=== PATIENT | male | born 1950 | race Caucasian/White ===

== ENCOUNTER 2019-05-22 22:18 | Emergency (ER) | payer MEDICAID, SELFPAY ==
[2019-05-22 22:23] VITALS: BP 167/95; PULSE 59; RESP 18; TEMP 36.5; O2SAT 98; BMI 25.7
--- NOTE | 2019-05-22 22:36 | ED_ITS ---
Entered by Nidhi Sanchez, acting as scribe for Alana Chavira May 22, 2019 22:18 HPI - Nausea/Vomiting/Diarrhea General: Chief complaint: Nausea/Vomiting/Diarrhea Stated complaint: not feeling well Time Seen by Provider: 05/22/19 22:33 Source: patient Mode of arrival: ambulatory Limitations: no limitations History of Present Illness: HPI Narrative: 68 yo m came to the er for nausea,vomiting,fever,chills and body aches. Onset was today. Pt states that he has body aches and has thrown up 3 times since noon this morning. Pt states that he had a heart attack 3 months ago along with seizures. [facility] vein is where he had a stent put in. MD elicited complaint: nausea, vomiting, abdominal pain and other (body aches) Onset (ago): day(s) (today) Associated nausea: Yes Location of pain: Other (all over) Pain consistency: intermittent Severity: mild Quality: aching Exacerbating factors: none Relieving factors: none Associated symtoms: Reports fevers/chills, nausea and other (vomiting); Denies altered mental status, change in vision, chest pain, dizziness, dysuria, headache(s), palpitations or syncope Treatment prior to arrival: none Review of Systems General: Reports: other (negative unless marked) Const: Reports: fever, chills and body aches Eyes: Denies: change in vision or blurry vision ENMT: Denies: throat pain, painful swallowing, hoarseness, ear pain, ear discharge, Change in hearing or nasal discharge Card: Denies: chest pain, palpitations, irregular heart rhythm, syncope, pre- syncope, shortness of breath on exertion or shortness of breath when lying down Resp: Denies: shortness of breath, productive cough, non-productive cough, wheezing, coughing up blood or chest congestion GI: Reports: nausea and vomiting : Denies: flank pain, difficulty urinating, painful urination, urinary frequency, urinary urgency, decreased urine ouput, urinary incontinence or blood in urine Musc: Denies: neck pain, back pain, extremity pain, extremity swelling, joint pain, joint swelling, joint warmth or joint stiffness Skin/Breast: Denies: rash, skin tenderness or yellow skin Neuro: Denies: headache, numbness in extremities, weakness in extremities, changes in sensation, lack of coordination, difficulty walking, dizziness, vertigo or confusion Endo: Denies: excessive thirst, tired all the time, cold intolerance, excessive sweating, flushing or hot flashes Branden/Lymph: Denies: easy bruising, easy bleeding, petechiae or enlarged lymph nodes All/Imm: Denies: hives, throat swelling, tongue swelling, facial swelling or acute wheezing PFSH ED PFSH: Family History Other Cancer Social History Smoking and tobacco status: never smoked Physical Exam Const: COMMON NORMALS: no apparent distress, oriented x3, no limitations, healthy appearing and well nourished EXAM LIMITATIONS: no altered mental status GENERAL APPEARANCE: cooperative, well kempt and well developed ORIENTATION/CONSCIOUSNESS: Yes awake HENMT: COMMON NORMALS: normocephalic, head/scalp atraumatic, hearing grossly n ormal bilaterally, external ears normal, EAC's normal, external nose normal and moist oral mucous membranes HEAD & SCALP: normal to inspection, normocephalic and atraumatic FACE & SINUS: normal facial exam and face symmetric NOSE: external nose normal and nares normal EXTERNAL EAR: Yes external ears normal EXTERNAL AUDITORY CANAL: EAC's normal MOUTH: oral and palatal mucosa normal and tongue normal Eye: COMMON NORMALS: PERRL, EOMs intact bilaterally, conjunctivae normal and no scleral icterus GENERAL EYE: normal appearance of both eyes and normal light reflex CONJUNCTIVA: Yes conjunctivae normal SCLERA: sclerae normal CORNEA: Yes corneas normal PUPIL: Yes PERRL DIRECT OPHTHALMOSCOPY: Yes normal light reflex Neck/C-Spine: COMMON NORMALS: full ROM, no lymphadenopathy, supple, no meningeal signs and no JVD GENERAL: Yes normal visual inspection and Yes trachea midline CERVICAL SPINE: Yes cervical ROM normal Chest: COMMONS NORMALS: inspection of chest normal and palpation of chest normal Resp: COMMON NORMALS: normal respiratory effort, no retractions, no use of accessory muscles and clear to auscultation bilaterally EFFORT & INSPECTION: Yes able to speak in complete sentences AUSCULTATION: clear to auscultation bilaterally Cardio: COMMON NORMALS: no JVD, regular rate, regular rhythm, S1 normal heart sound, S2 normal heart sound, no gallops, no clicks, no murmurs and no rub JUGULAR VENOUS DISTENTION: no JVD RATE: regular rate RHYTHM: regular rhythm HEART SOUNDS: S1 normal and S2 normal GI: COMMON NORMALS: soft to palpation, non-tender, no hepatosplenomegaly and no masses INSPECTION: Yes normal to inspection PALPATION: Yes soft and Yes no hepatosplenomegaly : COMMON NORMALS: Yes no CVA tenderness BLADDER/KIDNEY EXAM: Yes no CVA tenderness Back/Pelvis: COMMON NORMALS: no CVA tenderness, thoracic and lumbar spine normal to inspection, no thoracic nor lumbar tenderness and thoraco-lumbar ROM normal Extremity: COMMON NORMALS: normal to inspection, full ROM, normal capillary refill, no joint enlargement, no clubbing, cyanosis or edema and no calf tenderness Neuro: COMMON NORMALS: oriented x3, CN's II-XII intact bilaterally, moves all extremities, no focal motor deficits and no sensory deficits noted MENINGEAL SIGNS: Yes no meningeal signs Psych: COMMON NORMALS: mental status grossly normal, thought process normal, cooperative, affect normal, speech normal and activity/motor behavior normal APPEARANCE: Yes well kempt SPEECH: Yes normal speech THOUGHT PROCESS: normal thought process Skin: COMMON NORMALS: no rashes or lesions noted, skin turgor normal, no jaundice, no petechiae and no mottling GENERAL SKIN EXAM: no rashes or lesions noted and turgor normal Course Vital Signs: Vital signs: Vital Signs Temperature 97.7 F 05/22/19 22:23 Pulse Rate 66 05/23/19 00:43 Respiratory Rate 16 05/23/19 00:43 Blood Pressure 143/75 05/23/19 00:43 Pulse Oximetry 94 05/23/19 00:43 MDM - Nausea/Vomiting/Diarrhea MDM Narrative: Medical decision making narrative: Mr. Morales is a very nice 68-year-old male who comes in complaining of feeling achy and tired and fatigued all over. He is vomited 3 times today but denies any abdominal pain. He denies any headache, neck pain or stiffness, chest pain or shortness of breath, back pain, extremity pain only the diffuse myalgias that he has described before. Patient's believes he has been around people with similar symptoms. He is flu negative here. All of his labs are unremarkable. He does not want to stay for any further care but wants to go home. I have agreed to give him Anitafran for discharge and he will follow-up with his regular doctor. I see no light that of acute coronary syndrome, meningitis, pneumonia or other life threats as this differential is long. The patient does though agree to return should his symptoms change or worsen. Lab Data: Attestation: I reviewed the patient's lab results. Labs: Lab Results 05/22/19 05/22/19 05/22/19 Range/Units 22:55 22:55 22:55 WBC 11.9 H (4.0-10.0) 10^3/ uL RBC 5.04 (4.1-5.3) 10^6/u L Hgb 15.0 (11.7-16.6) g/dL Hct 44.8 (42.0-52.0) % MCV 88.9 (80-94) fL MCH 29.8 (28.0-34.0) pg MCHC 33.5 (30.0-36.0) g/dL RDW 12.8 (12.1-15.1) % Plt Count 234 (130-400) 10^3/c mm MPV 9.4 (7.4-10.4) fL Neut % (Auto) 85.9 % Lymph % (Auto) 7.5 % Irwin % (Auto) 4.4 % Eos % (Auto) 1.6 % Baso % (Auto) 0.3 % Neut # (Auto) 10.2 H (1.8-7.7) 10^3/u L Lymph # (Auto) 0.9 (0.8-4.8) 10^3/u L Irwin # (Auto) 0.5 (0.2-0.9) 10^3/u L Eos # (Auto) 0.2 (0.0-0.8) 10^3/u L Baso # (Auto) 0.0 (0.0-0.1) 10^3/u L Nucleated RBC % (a uto) 0 % Nucleated RBCs # 0.0 /100WBC Sodium 130 L (136-145) mmol/L Potassium 4.0 (3.5-5.1) mmol/L Chloride 90 L (98-107) mmol/L Carbon Dioxide 27 (22-29) mmol/L Anion Gap 17.0 (5-19) BUN 16 (8-23) mg/dL Creatinine 1.0 (0.7-1.2) mg/dL GFR Calculation 74.1 L (90-130) mL/min Glucose 104 (65-115) mg/dL Calcium 9.8 (8.5-10.5) mg/dL Total Bilirubin 0.9 (0.15-1.2) mg/dL AST 27 (0-40) U/L ALT 27 (0-41) U/L Alkaline Phosphata se 33 L (40-130) IU/L Troponin T Baselin e 13 (0-15) ng/mL Total Protein 8.0 (6.6-8.7) g/dL Albumin 4.1 (3.5-5.2) g/dL Globulin 3.9 (1.3-4.6) g/dL Lipase 28 (13-60) U/L Urine Color (Yellow) Urine Appearance (CLEAR) Urine pH (5-7) Ur Specific Gravit y (1.005-1.030) Urine Protein (Negative) Urine Glucose (UA) (Normal) Urine Ketones (Negative) Urine Blood (Negative) Urine Nitrate (Negative) Urine Bilirubin (NEGATIVE) Urine Urobilinogen (Negative) mg/dL Ur Leukocyte Evelyn ase (Negative) Influenza Type A A g (Negative) POC Influenza B Ag (Negative) 05/22/19 05/23/19 Range/Units 23:15 00:10 WBC (4.0-10.0) 10^3/ uL RBC (4.1-5.3) 10^6/u L Hgb (11.7-16.6) g/dL Hct (42.0-52.0) % MCV (80-94) fL MCH (28.0-34.0) pg MCHC (30.0-36.0) g/dL RDW (12.1-15.1) % Plt Count (130-400) 10^3/c mm MPV (7.4-10.4) fL Neut % (Auto) % Lymph % (Auto) % Irwin % (Auto) % Eos % (Auto) % Baso % (Auto) % Neut # (Auto) (1.8-7.7) 10^3/u L Lymph # (Auto) (0.8-4.8) 10^3/u L Irwin # (Auto) (0.2-0.9) 10^3/u L Eos # (Auto) (0.0-0.8) 10^3/u L Baso # (Auto) (0.0-0.1) 10^3/u L Nucleated RBC % (a uto) % Nucleated RBCs # /100WBC Sodium (136-145) mmol/L Potassium (3.5-5.1) mmol/L Chloride (98-107) mmol/L Carbon Dioxide (22-29) mmol/L Anion Gap (5-19) BUN (8-23) mg/dL Creatinine (0.7-1.2) mg/dL GFR Calculation (90-130) mL/min Glucose (65-115) mg/dL Calcium (8.5-10.5) mg/dL Total Bilirubin (0.15-1.2) mg/dL AST (0-40) U/L ALT (0-41) U/L Alkaline Phosphata se (40-130) IU/L Troponin T Baselin e (0-15) ng/mL Total Protein (6.6-8.7) g/dL Albumin (3.5-5.2) g/dL Globulin (1.3-4.6) g/dL Lipase (13-60) U/L Urine Color Yellow (Yellow) Urine Appearance Clear (CLEAR) Urine pH 5 (5-7) Ur Specific Gravit y 1.020 (1.005-1.030) Urine Protein Neg (Negative) Urine Glucose (UA) Norm (Normal) Urine Ketones 1+ H (Negative) Urine Blood Neg (Negative) Urine Nitrate Negative (Negative) Urine Bilirubin Neg (NEGATIVE) Urine Urobilinogen Norm (Negative) mg/dL Ur Leukocyte Evelyn ase Negative (Negative) Influenza Type A A g Negative (Negative) POC Influenza B Ag Negative (Negative) EKG Data^: EKG 1: Attestation: I personally reviewed and interpreted this EKG as follows: EKG interpretation date: 05/23/19 EKG interpretation time: 22:56 Interpretation: Normal sinus rhythm at 61 beats a minute, incomplete right bundle branch block, nonspecific ST and T wave changes, otherwise unremarkable. Discharge Plan Discharge Patient Disposition: Home, Self-Care Clinical Impression: Vomiting Qualifiers: Vomiting type: unspecified Vomiting Intractability: non-intractable Nausea presence: with nausea Qualified Code(s): R11.2 - Nausea with vomiting, unspecified Condition: Stable Prescriptions: New Zofran 4 mg tablet 4 mg PO Q6H PRN (Reason: nausea and vomiting) Qty: 20 RF: 0 No Action levetiracetam 750 mg tablet 750 mg PO BID RF: 0 metoprolol tartrate 25 mg tablet 25 mg PO BID RF: 0 clopidogrel 75 mg tablet 75 mg PO DAILY RF: 0 aspirin [Adult Low Dose Aspirin] 81 mg tablet,delayed release (DR/EC) 81 mg PO DAILY RF: 0 atorvastatin 40 mg tablet 40 mg PO DAILY RF: 0 Discharge Orders: Discharge Order (Routine); Ordered 05/23/19 Ordered By: Alana Chavira Referrals: Matias Echevarria MD [Primary Care Provider] - 1-3 days Discharge Diet: Usual diet Discharge Activity: Increase activity as tolerated Patient Instructions: Acute Nausea and Vomiting (ED), Abdominal Pain (ED) Activity Restrictions/Additional Instructions: Please return to the ER immediately for any of the signs or symptoms listed on your discharge instruction sheets, worsening/changing of your symptoms, you are not getting better as quickly as expected, or for ANY other cause or concerns. 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
--- NOTE | 2019-05-22 22:42 | ECG_ITS ---
Measurements Intervals [place] Rate: 61 P: 54 TX: 170 QRS: 58 QRSD: 114 T: 33 QT: 400 QTc: 403 SINUS RHYTHM INCOMPLETE RIGHT BUNDLE BRANCH BLOCK [90+ ms QRS DURATION, TERMINAL R IN V1/V2, 40+ ms S IN I/aVL/V4/V5/V6] Compared to ECG 02/17/2019 06:30:00 Sinus bradycardia no longer present ST (T wave) deviation no longer present Electronically Signed On 05-23-2019 19:35:45 HEALTH POLICY ANALYST by Calin Morgan M.D. [email or web address]
[2019-05-22 23:01] LABS: Basophils % 0.3 %; Eosinophils # 0.2 10^3/uL (0.0-0.8); Eosinophils % 1.6 %; Hematocrit 44.8 % (42.0-52.0); Lymphocytes # 0.9 10^3/uL (0.8-4.8); Lymphocytes % 7.5 %; Mean Corpuscular HGB Conc 33.5 g/dL (30.0-36.0); Mean Corpuscular Hemoglobin 29.8 pg (28.0-34.0); Mean Corpuscular Volume 88.9 fL (80-94); Mean Platelet Volume 9.4 fL (7.4-10.4); Monocytes # 0.5 10^3/uL (0.2-0.9); Monocytes % 4.4 %; Neutrophils # 10.2 10^3/uL (1.8-7.7); Neutrophils % 85.9 %; Nucleated Red Blood Cells % 0 %; Platelet Count 234 10^3/cmm (130-400); Red Blood Count 5.04 10^6/uL (4.1-5.3); Red Cell Distribution Width 12.8 % (12.1-15.1); White Blood Count 11.9 10^3/uL (4.0-10.0)
[2019-05-22] MEDS: ondansetron 2 mg/ML SDV 2 mL 4 MG IVP (23:09)
[2019-05-22] MEDS: sodium chloride 0.9% 1,000 ML 100 ML IV (23:09)
[2019-05-22 23:15] LABS: Alanine Aminotransferase 27 U/L (0-41); Albumin Level 4.1 g/dL (3.5-5.2); Alkaline Phosphatase 33 IU/L (40-130); Aspartate Amino Transferase 27 U/L (0-40); Blood Urea Nitrogen 16 mg/dL (8-23); Calcium 9.8 mg/dL (8.5-10.5); Carbon Dioxide 27 mmol/L (22-29); Chloride 90 mmol/L (98-107); Globulin 3.9 g/dL (1.3-4.6); Glomerular Filtration Rate 74.1 mL/min (90-130); Glucose 104 mg/dL (65-115); Lipase 28 U/L (13-60); Sodium 130 mmol/L (136-145); Total Bilirubin 0.9 mg/dL (0.15-1.2)
[2019-05-22 23:19] LABS: Troponin(5th) Baseline 13 ng/mL (0-15)
[2019-05-22 23:56] LABS: Influenza A by IFA Negative (Negative); Influenza B by IFA Negative (Negative)
[2019-05-23 00:19] LABS: Bilirubin Urine Neg (NEGATIVE); Blood Urine Neg (Negative); Glucose Urine UA Norm (Normal); Ketones Urine 1+ (Negative); Leukocyte Esterase Urine Negative (Negative); Nitrate Urine Negative (Negative); Protein Urine Neg (Negative); Urine Appearance Clear (CLEAR); Urine Color Yellow (Yellow); Urobilinogen Urine Norm (Negative); pH Urine 5 (5-7)
[2019-05-23 00:20] LABS: Add Urine Culture? No
[2019-05-23 00:43] VITALS: BP 143/75; PULSE 66; RESP 16; O2SAT 94
== END 2019-05-23 00:44 | disposition home or self-care (01) ==
PROVIDERS: Emergency Provider Emergency Medicine; Family Provider Family Medicine; PCP Family Medicine
DX: R11.2 Nausea with vomiting, unspecified (principal); R19.7 Diarrhea, unspecified; R50.9 Fever, unspecified; I25.2 Old myocardial infarction; I45.10 Unspecified right bundle-branch block
CPT/HCPCS: 36415; 80053; 81001; 83690; 84484; 85025; 87804; 93005; 96360; 96361; 96374; 96375; 99283; 99284; J2405; J7030

== ENCOUNTER 2019-07-20 22:13 | Observation (INO) | payer MEDICAID, SELFPAY ==
[2019-07-20 22:14] VITALS: BP 150/73; PULSE 113; RESP 18; TEMP 36.3; O2SAT 98; BMI 27.3
--- NOTE | 2019-07-20 22:19 | XR_ITS ---
WS: [id number] CHEST XRAY TECHNIQUE: Portable chest. CLINICAL INFORMATION: cough COMPARISON: February 13, 2019 FINDINGS: Heart: Normal cardiac silhouette. Lungs: Moderate chronic emphysematous changes. No acute pulmonary infiltrates. No focal pneumonia. Bones: Mild thoracic curve convex left. XR/XR chest 1V portable [id number] IMPRESSION: No acute chest findings
--- NOTE | 2019-07-20 22:20 | CTR_ITS ---
PROCEDURE INFORMATION: Exam: CT Head Without Contrast Exam date and time: 07/20/2019 10:34 PM Age: 68 years old Clinical indication: Pain; Altered mental status/memory loss; Headache; Patient HX: Seizure; Additional info: Wu/ams TECHNIQUE: Imaging protocol: Computed tomography of the head without contrast. Total DLP: 861.41 mGy-cm Radiation optimization: All CT scans at this facility use at least one of these dose optimization techniques: automated exposure control; mA and/or kV adjustment per patient size (includes targeted exams where dose is matched to clinical indication); or iterative reconstruction. COMPARISON: CT head wo con* [id number] 10/12/2017 1:52 PM FINDINGS: Brain: Normal. No hemorrhage. Unremarkable white matter. No mass effect. Ventricles: Normal. No ventriculomegaly. Bones/joints: Unremarkable. No acute fracture. Sinuses: There is mild mucosal thickening in the sinuses. There is a small fluid level in the left maxillary sinus. Mastoid air cells: Visualized mastoid air cells are well aerated. Soft tissues: Unremarkable. CT/CT head wo con* [id number] IMPRESSION: 1. No acute intracranial abnormality. 2. Mild sinus opacities are noted as above. Radiation Dose CTDIVOL = (mGy): DLP = 861.41 (mGy-cm)
--- NOTE | 2019-07-20 22:20 | ECG_ITS ---
Measurements Intervals [place] Rate: 140 P: UT: 0 QRS: 73 QRSD: 101 T: 53 QT: 290 QTc: 444 ATRIAL FIBRILLATION WITH RAPID VENTRICULAR RESPONSE INCOMPLETE RIGHT BUNDLE BRANCH BLOCK [90+ ms QRS DURATION, TERMINAL R IN V1/V2, 40+ ms S IN I/aVL/V4/V5/V6] ABNORMAL RHYTHM ECG Compared to ECG 05/22/2019 22:56:56 Sinus rhythm no longer present Electronically Signed On 07-21-2019 14:59:29 CDT by Gil Valdes M.D. [email or web address]
--- NOTE | 2019-07-20 22:23 | ED_ITS ---
HPI - Seizure General: Chief Complaint: Seizure Stated Complaint: POST SEIZURE Time Seen by Provider: 07/20/19 22:16 History of Present Illness: HPI Narrative: Enrique is a nice 68-year-old male who comes in after having a seizure. The seizure was witnessed by friends. It lasted several minutes but now the patient is back to normal. He was postictal for short time after. Patient seems slightly confused and does not know where he is at or recent events but denies any complaints of pain at this time. History is deemed questionable as he is slightly confused at this time. He denies any complaints at this time. Associated symptoms: Deny chest pain, chills, confusion, diaphoresis, fever(s), malaise or syncope Review of Systems General: Reports: other (negative unless marked) Const: Denies: fever, chills, body aches, fatigue, malaise or diaphoresis Eyes: Denies: change in vision or blurry vision ENMT: Denies: throat pain, painful swallowing, hoarseness, ear pain, ear discharge, Change in hearing or nasal discharge Card: Denies: chest pain, palpitations, irregular heart rhythm, syncope, pre- syncope, shortness of breath on exertion or shortness of breath when lying down Resp: Denies: shortness of breath, productive cough, non-productive cough, wheezing, coughing up blood or chest congestion GI: Denies: abdominal pain, nausea, vomiting, vomiting blood, coffee grounds in vomit, diarrhea, constipation, cramping, blood in stool or black tarry stool : Denies: flank pain, difficulty urinating, painful urination, urinary frequency, urinary urgency, decreased urine ouput, urinary incontinence or blood in urine Musc: Denies: neck pain, back pain, extremity pain, extremity swelling, joint pain, joint swelling, joint warmth or joint stiffness Skin/Breast: Denies: rash, skin tenderness or yellow skin Neuro: Denies: headache, numbness in extremities, weakness in extremities, changes in sensation, lack of coordination, difficulty walking, dizziness, vertigo or confusion Endo: Denies: excessive thirst, tired all the time, cold intolerance, excessive sweating, flushing or hot flashes Branden/Lymph: Denies: easy bruising, easy bleeding, petechiae or enlarged lymph nodes All/Imm: Denies: hives, throat swelling, tongue swelling, facial swelling or acute wheezing PFSH ED PFSH: Medical History Atrial fibrillation Mixed hyperlipidemia Pneumonia Seizure disorder Surgical History History of appendectomy Hx of tonsillectomy Family History Other Cancer Social History Smoking and tobacco status: never smoked Physical Exam Const: COMMON NORMALS: no apparent distress, oriented x3, no limitations, healthy appearing and well nourished EXAM LIMITATIONS: no altered mental status GENERAL APPEARANCE: cooperative, well kempt and well developed ORIENTATION/CONSCIOUSNESS: Yes awake HENMT: COMMON NORMALS: normocephalic, head/scalp atraumatic, hearing grossly normal bilaterally, external ears normal, EAC's normal, external nose normal and moist oral mucous membranes HEAD & SCALP: normal to inspection, normocephalic and atraumatic FACE & SINUS: normal facial exam and face symmetric NOSE: external nose normal and nares normal EXTERNAL EAR: Yes external ears normal EXTERNAL AUDITORY CANAL: EAC's normal MOUTH: oral and palatal mucosa normal and tongue normal Eye: COMMON NORMALS: PERRL, EOMs intact bilaterally, conjunctivae normal and no scleral icterus GENERAL EYE: normal appearance of both eyes and normal light reflex CONJUNCTIVA: Yes conjunctivae normal SCLERA: sclerae normal CORNEA: Yes corneas normal PUPIL: Yes PERRL DIRECT OPHTHALMOSCOPY: Yes normal light reflex Neck/C-Spine: COMMON NORMALS: full ROM, no lymphadenopathy, supple, no meningeal signs and no JVD GENERAL: Yes normal visual inspection and Yes trachea midline CERVICAL SPINE: Yes cervical ROM normal Chest: COMMONS NORMALS: inspection of chest normal and palpation of chest normal Resp: COMMON NORMALS: normal respiratory effort, no retractions, no use of accessory muscles and clear to auscultation bilaterally EFFORT & INSPECTION: Yes able to speak in complete sentences AUSCULTATION: clear to auscultation bilaterally Cardio: COMMON NORMALS: no JVD, S1 normal heart sound, S2 normal heart sound, no gallops, no clicks, no murmurs and no rub JUGULAR VENOUS DISTENTION: no JVD RATE: tachycardic RHYTHM: abnormal rhythm irregularly irregular HEART SOUNDS: S1 normal and S2 normal GI: COMMON NORMALS: soft to palpation, non-tender, no hepatosplenomegaly and no masses INSPECTION: Yes normal to inspection PALPATION: Yes soft and Yes no hepatosplenomegaly : COMMON NORMALS: Yes no CVA tenderness BLADDER/KIDNEY EXAM: Yes no CVA tenderness Back/Pelvis: COMMON NORMALS: no CVA tenderness, thoracic and lumbar spine normal to inspection, no thoracic nor lumbar tenderness and thoraco-lumbar ROM normal Extremity: COMMON NORMALS: normal to inspection, full ROM, normal capillary refill, no joint enlargement, no clubbing, cyanosis or edema and no calf tenderness Neuro: COMMON NORMALS: oriented x3, CN's II-XII intact bilaterally, moves all extremities, no focal motor deficits and no sensory deficits noted MENINGEAL SIGNS: Yes no meningeal signs Psych: COMMON NORMALS: mental status grossly normal, thought process normal, cooperative, affect normal, speech normal and activity/motor behavior normal APPEARANCE: Yes well kempt SPEECH: Yes normal speech THOUGHT PROCESS: normal thought process Skin: COMMON NORMALS: no rashes or lesions noted, skin turgor normal, no j aundice, no petechiae and no mottling GENERAL SKIN EXAM: no rashes or lesions noted and turgor normal Course Vital Signs: Vital signs: Vital Signs Temperature 97.4 F L 07/20/19 22:14 Pulse Rate 57 L 07/20/19 23:52 Respiratory Rate 17 07/20/19 23:52 Blood Pressure 104/58 07/20/19 23:52 Pulse Oximetry 99 07/20/19 23:52 MDM - Seizure MDM Narrative: Medical decision making narrative: Enrique is a nice 68-year-old male who comes in after having a breakthrough seizure which precipitated a paroxysm of A. fib with RVR. The patient converted after being placed on a Cardizem drip and receiving a bolus. He is still just slightly confused but overall I believe he is recovered and is not postictal. His sodium is slightly low at 127 and this is a new problem for him. I do not see any obvious medications right now that may cause this. Ultimately though with him still being slightly confused and having hyponatremia and having a seizure I will admit for gentle rehydration with normal saline and I will give him a dose of Ativan. I reviewed this plan in case with Dr. Ecehvarria and he is in agreement. Lab Data: Attestation: I reviewed the patient's lab results. Labs: Lab Results 07/20/19 07/20/19 07/20/19 Range/Units 22:26 22:26 22:26 WBC 10.1 H (4.0-10.0) 10^3/ uL RBC 4.61 (4.1-5.3) 10^6/u L Hgb 13.7 (11.7-16.6) g/dL Hct 41.7 L (42.0-52.0) % MCV 90.5 (80-94) fL MCH 29.7 (28.0-34.0) pg MCHC 32.9 (30.0-36.0) g/dL RDW 12.9 (12.1-15.1) % Plt Count 237 (130-400) 10^3/c mm MPV 9.6 (7.4-10.4) fL Neut % (Auto) 69.7 % Lymph % (Auto) 18.0 % Toole % (Auto) 5.7 % Eos % (Auto) 5.9 % Baso % (Auto) 0.3 % Neut # (Auto) 7.1 (1.8-7.7) 10^3/u L Lymph # (Auto) 1.8 (0.8-4.8) 10^3/u L Toole # (Auto) 0.6 (0.2-0.9) 10^3/u L Eos # (Auto) 0.6 (0.0-0.8) 10^3/u L Baso # (Auto) 0.0 (0.0-0.1) 10^3/u L Nucleated RBC % (a uto) 0 % Nucleated RBCs # 0.0 /100WBC PT 13.50 H (10.5-13.3) SECO NDS INR 1.00 (0.8-1.2) Sodium 127 L (136-145) mmol/L Potassium 4.1 (3.5-5.1) mmol/L Chloride 88 L (98-107) mmol/L Carbon Dioxide 26 (22-29) mmol/L Anion Gap 17.1 (5-19) BUN 12 (8-23) mg/dL Creatinine 1.0 (0.7-1.2) mg/dL GFR Calculation 74.1 L (90-130) mL/min Glucose 113 (65-115) mg/dL Calculated Osmolal ity 261 L (285-295) mOsm/k g Calcium 9.4 (8.5-10.5) mg/dL Magnesium 2.0 (1.7-2.3) mg/dL Total Bilirubin 0.5 (0.15-1.2) mg/dL AST 27 (0-40) U/L ALT 19 (0-41) U/L Alkaline Phosphata se 44 (40-130) IU/L Troponin T Baselin e (0-15) ng/mL Total Protein 6.8 (6.6-8.7) g/dL Albumin 4.1 (3.5-5.2) g/dL Globulin 2.7 (1.3-4.6) g/dL Ethyl Alcohol < 10 (0-10) mg/dL 07/20/19 Range/Units 22:26 WBC (4.0-10.0) 10^3/ uL RBC (4.1-5.3) 10^6/u L Hgb (11.7-16.6) g/dL Hct (42.0-52.0) % MCV (80-94) fL MCH (28.0-34.0) pg MCHC (30.0-36.0) g/dL RDW (12.1-15.1) % Plt Count (130-400) 10^3/c mm MPV (7.4-10.4) fL Neut % (Auto) % Lymph % (Auto) % Toole % (Auto) % Eos % (Auto) % Baso % (Auto) % Neut # (Auto) (1.8-7.7) 10^3/u L Lymph # (Auto) (0.8-4.8) 10^3/u L Toole # (Auto) (0.2-0.9) 10^3/u L Eos # (Auto) (0.0-0.8) 10^3/u L Baso # (Auto) (0.0-0.1) 10^3/u L Nucleated RBC % (a uto) % Nucleated RBCs # /100WBC PT (10.5-13.3) SECO NDS INR (0.8-1.2) Sodium (136-145) mmol/L Potassium (3.5-5.1) mmol/L Chloride (98-107) mmol/L Carbon Dioxide (22-29) mmol/L Anion Gap (5-19) BUN (8-23) mg/dL Creatinine (0.7-1.2) mg/dL GFR Calculation (90-130) mL/min Glucose (65-115) mg/dL Calculated Osmolal ity (285-295) mOsm/k g Calcium (8.5-10.5) mg/dL Magnesium (1.7-2.3) mg/dL Total Bilirubin (0.15-1.2) mg/dL AST (0-40) U/L ALT (0-41) U/L Alkaline Phosphata se (40-130) IU/L Troponin T Baselin e 10 (0-15) ng/mL Total Protein (6.6-8.7) g/dL Albumin (3.5-5.2) g/dL Globulin (1.3-4.6) g/dL Ethyl Alcohol (0-10) mg/dL Imaging Data^: CT Head: Radiologist's impression: [place] [address] CT Scan Report Signed Patient: Enrique Morales Unit #: [id number] : [id number] Age/Sex: 68 / M ADM Date: 07/20/19 Loc: ER Room/Bed: Attending Dr: Ordering Provider/Ordering MD: Alana Chavira DO Date of Service: 07/20/19 Procedure(s): CT head wo con* [id number] Accession Number(s): [id number] Report Number: [id number] PROCEDURE INFORMATION: Exam: CT Head Without Contrast Exam date and time: 07/20/2019 10:34 PM Age: 68 years old Clinical indication: Pain; Altered mental status/memory loss; Headache; Patient HX: Seizure; Additional info: Wu/ams TECHNIQUE: Imaging protocol: Computed tomography of the head without contrast. Total DLP: 861.41 mGy-cm Radiation optimization: All CT scans at this facility use at least one of these dose optimization techniques: automated exposure control; mA and/or kV adjustment per patient size (includes targeted exams where dose is matched to clinical indication); or iterative reconstruction. COMPARISON: CT head wo con* [id number] 10/12/2017 1:52 PM FINDINGS: Brain: Normal. No hemorrhage. Unremarkable white matter. No mass effect. Ventricles: Normal. No ventriculomegaly. Bones/joints: Unremarkable. No acute fracture. Sinuses: There is mild mucosal thickening in the sinuses. There is a small fluid level in the left maxillary sinus. Mastoid air cells: Visualized mastoid air cells are well aerated. Soft tissues: Unremarkable. CT/CT head wo con* [id number] IMPRESSION: 1. No acute intracranial abnormality. 2. Mild sinus opacities are noted as above. Radiation Dose CTDIVOL = (mGy): DLP = 861.41 (mGy-cm) Dictated By: Dee Dee Collazo Signed By: Dee Dee Collazo Signed Date/Time: 07/20/192247 DD/ 46 EKG Data^: EKG 1: Attestation: I personally reviewed and interpreted this EKG as follows: EKG interpretation date: 07/20/19 EKG interpretation time: 22:21 Interpretation: Atrial fibrillation with rapid ventricular response at 140 beats a minute, normal axis, nonspecific ST-T wave changes, incomplete right bundle branch block. Discharge Plan Discharge Patient Disposition: Placed in Observation Admit Provider: Matias Echevarria Clinical Impression: Generalized seizure, Acute hyponatremia Condition: Stable Coding Level of Care Code ED Auto Garage Attendant for Chg Fwd Exam Comprehensive
[2019-07-20 22:43] LABS: Basophils % 0.3 %; Eosinophils # 0.6 10^3/uL (0.0-0.8); Eosinophils % 5.9 %; Hematocrit 41.7 % (42.0-52.0); Hemoglobin 13.7 g/dL (11.7-16.6); Lymphocytes # 1.8 10^3/uL (0.8-4.8); Mean Corpuscular HGB Conc 32.9 g/dL (30.0-36.0); Mean Corpuscular Hemoglobin 29.7 pg (28.0-34.0); Mean Corpuscular Volume 90.5 fL (80-94); Mean Platelet Volume 9.6 fL (7.4-10.4); Monocytes # 0.6 10^3/uL (0.2-0.9); Monocytes % 5.7 %; Neutrophils # 7.1 10^3/uL (1.8-7.7); Neutrophils % 69.7 %; Nucleated Red Blood Cells % 0 %; Platelet Count 237 10^3/cmm (130-400); Red Blood Count 4.61 10^6/uL (4.1-5.3); Red Cell Distribution Width 12.9 % (12.1-15.1); White Blood Count 10.1 10^3/uL (4.0-10.0)
[2019-07-20 22:55] LABS: Alanine Aminotransferase 19 U/L (0-41); Albumin Level 4.1 g/dL (3.5-5.2); Alkaline Phosphatase 44 IU/L (40-130); Anion Gap 17.1 (5-19); Aspartate Amino Transferase 27 U/L (0-40); Blood Urea Nitrogen 12 mg/dL (8-23); Calcium 9.4 mg/dL (8.5-10.5); Carbon Dioxide 26 mmol/L (22-29); Chloride 88 mmol/L (98-107); Globulin 2.7 g/dL (1.3-4.6); Glomerular Filtration Rate 74.1 mL/min (90-130); Glucose 113 mg/dL (65-115); Osmolality Calculated 261 mOsm/kg (285-295); Potassium 4.1 mmol/L (3.5-5.1); Sodium 127 mmol/L (136-145); Total Bilirubin 0.5 mg/dL (0.15-1.2); Total Protein 6.8 g/dL (6.6-8.7)
[2019-07-20 22:57] LABS: Troponin(5th) Baseline 10 ng/mL (0-15)
[2019-07-20 22:59] LABS: Alcohol Level < 10 mg/dL (0-10)
[2019-07-20 23:52] VITALS: BP 104/58; PULSE 57; RESP 17; O2SAT 99
[2019-07-21] VITALS (11 sets, daily range): BP systolic 109–138; BP diastolic 58–74; PULSE 53–76; RESP 16–22; TEMP 36.4–36.9; O2SAT 9–98
--- NOTE | 2019-07-21 00:20 | ECG_ITS ---
Measurements Intervals [place] Rate: 55 P: 65 FL: 161 QRS: 83 QRSD: 114 T: 67 QT: 393 QTc: 377 SINUS BRADYCARDIA INCOMPLETE RIGHT BUNDLE BRANCH BLOCK [90+ ms QRS DURATION, TERMINAL R IN V1/V2, 40+ ms S IN I/aVL/V4/V5/V6] Compared to ECG 05/22/2019 22:56:56 Sinus rhythm no longer present Electronically Signed On 07-21-2019 15:02:43 CDT by Gil Valdes M.D. [email or web address]
[2019-07-21 00:54] LABS: Troponin 5 2HR 11.73 ng/mL (0-15); Troponin 5 2HR Delta 1.73 ABS# (0-10)
[2019-07-21] MEDS: LORazepam 2 mg/mL INJ 1 mL 1 MG IVP (01:29)
[2019-07-21] MEDS: sodium chloride 0.9% 1,000 ML 999 ML IV (01:31)
[2019-07-21 01:48] LABS: Bacteria Urine 1+; Bilirubin Urine Neg (NEGATIVE); Blood Urine Neg (Negative); Glucose Urine UA Norm (Normal); Ketones Urine Negative (Negative); Leukocyte Esterase Urine Negative (Negative); Nitrate Urine Negative (Negative); Protein Urine Neg (Negative); RBC Urine 0-4 /hpf (0-2); Sperm Urine 1+; Squamous Epithelial Cell Urine 0-4 (0-5); Urine Appearance Clear (CLEAR); Urine Color Yellow (Yellow); Urobilinogen Urine Norm (Negative); WBC Urine 0-4 /hpf (0-5); pH Urine 6.5 (5-7)
[2019-07-21 01:49] LABS: Amphetamines Screen Urine Negative (Negative); Barbiturates Screen Urine Negative (Negative); Benzodiazepines Screen Urine Negative (Negative); Cocaine Screen Urine Negative (Negative); Opiate Screen Urine Negative (Negative); PCP Screen Urine Negative (Negative); THC Screen Urine Negative (Negative)
[2019-07-21] MEDS: sodium chloride 0.9% 1,000 ML 100 ML IV ×2 (02:04→12:02)
[2019-07-21 04:47] LABS: Basophils % 0.3 %; Eosinophils # 0.3 10^3/uL (0.0-0.8); Hematocrit 39.6 % (42.0-52.0); Hemoglobin 13.3 g/dL (11.7-16.6); Lymphocytes # 1.4 10^3/uL (0.8-4.8); Lymphocytes % 13.8 %; Mean Corpuscular HGB Conc 33.6 g/dL (30.0-36.0); Mean Corpuscular Hemoglobin 30.5 pg (28.0-34.0); Mean Corpuscular Volume 90.8 fL (80-94); Mean Platelet Volume 9.4 fL (7.4-10.4); Monocytes # 0.5 10^3/uL (0.2-0.9); Monocytes % 5.3 %; Neutrophils # 7.6 10^3/uL (1.8-7.7); Neutrophils % 77.2 %; Nucleated Red Blood Cells % 0 %; Platelet Count 212 10^3/cmm (130-400); Red Blood Count 4.36 10^6/uL (4.1-5.3); Red Cell Distribution Width 13.2 % (12.1-15.1); White Blood Count 9.8 10^3/uL (4.0-10.0)
[2019-07-21 05:09] LABS: Anion Gap 14.7 (5-19); Blood Urea Nitrogen 13 mg/dL (8-23); Calcium 9.2 mg/dL (8.5-10.5); Carbon Dioxide 29 mmol/L (22-29); Chloride 93 mmol/L (98-107); Glomerular Filtration Rate 74.1 mL/min (90-130); Glucose 108 mg/dL (65-115); Osmolality Calculated 271 mOsm/kg (285-295); Potassium 4.7 mmol/L (3.5-5.1); Sodium 132 mmol/L (136-145)
[2019-07-21 05:11] LABS: Troponin 5 6HR 13.85 ng/mL (0-15); Troponin 5 6HR Delta 3.85 ng/L (0-12)
--- NOTE | 2019-07-21 11:13 | PC.CHAP ---
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 [] Patient/Family/Request visit [] Outpatient visit [] Follow-up visit [] Physician referral [] Code/Alert [x] Routine visit [] Staff referral [] Actively dying [] Patient sleeping [] Family support [] [] Out of room [] Palliative care [] [] Receiving care in room [] Pre-surgical visit [] Trauma [] Long length of stay [] ICU visit [] Other: Relational/Emotional Strength [] Patient feels connected with others/family/visitors/staff [] Distress [] Loneliness/isolation [] Abandonment Spirituality of Patient [] Person of Junie [] Attends Evangelical of their Junie [] Believes in Prayer [] Reads Bible or Amish materials [] There are Spiritual issues to be addressed Production Zone Leader Interventions [x] Prayer [] Active listening [] Non-anxious presence [] Spiritual/emotional support [] Crisis/trauma care [] Spiritual counseling [] Bereavement support [] Provided bereavement packet [] Provided Bible/devotional materials [] Provided toy/stuffed animal, coloring book to patient or family member [] Provided Communion [] Anointing/[place] [] Salvation [x] Completed spiritual assessment [] Other: Impact on Illness or Injury [] Angry [] Fearful [] Anxious [] Often cries [] Exhaustion [] Unable to work [] Unable to attend christianity [] Unable to walk/stand [] Unable to read [] Unable to drive [] Unable to eat/drink [] Unable to sleep [] Unable to be with family [] Patient intubated [] Other: Summary Patient is handicapped. Patient understands seizure, and knows meds are being checked. Resting well Time spent with patient 10 min
--- NOTE | 2019-07-21 13:43 | PM.SDS ---
Short Stay Summary Providers Date of Admit/Discharge: 07/21/19 Attending Provider: Matias Echevarria MD Primary Care Provider: Matias Echevarria MD Chief Complaint: POST SEIZURE HPI History of Present Illness Enrique Morales is a 68 year old male who presented to the emergency department after having a seizure that was witnessed. The patient was significantly confused and unable to care for himself and was hyponatremic, so she was placed in the hospital for observation. Currently the patient feels much better and no longer has any significant confusion. The patient has been ambulating, voiding, and denies any chest pains, shortness of breath, fever, cough, nausea, vomiting, diarrhea, constipation. Home Meds/Allergies Home Medications and Allergies Home Medications Medication Instructions Recorded Confirmed Type aspirin 81 mg tablet,delayed 81 mg PO DAILY tab 03/31/19 03/31/19 History release atorvastatin 40 mg tablet 40 mg PO DAILY tab 03/31/19 03/31/19 History clopidogrel 75 mg tablet 75 mg PO DAILY tab 03/31/19 03/31/19 History levetiracetam 750 mg tablet 750 mg PO BID 03/31/19 03/31/19 History metoprolol tartrate 25 mg tablet 25 mg PO BID 03/31/19 03/31/19 History Allergies Allergy/AdvReac Type Severity Reaction Status Date / Time No Known Allergies Allergy Unverified 03/31/19 10:22 PFSH Acute PFSH: Medical History (Updated 07/21/19 @ 13:47 by Matias Echevarria MD) Atrial fibrillation Coronary artery disease Mixed hyperlipidemia Pneumonia Presence of stent in LAD coronary artery Seizure disorder Subdural hemorrhage Surgical History History of appendectomy Hx of tonsillectomy Family History Other Cancer Social History Smoking and tobacco status: never smoked Vitals/I&O/Wt Last Vital Signs Temp 97.9 F 07/21/19 11:10 Pulse 73 07/21/19 11:10 Resp 22 H 07/21/19 11:10 BP 118/71 07/21/19 11:10 Pulse Ox 95 07/21/19 11:10 0407/21/19 07/21/19 22:59 06:59 14:59 Intake Total 125 / 125 840 / 840 Output Total 1550 / 1550 2275 / 2275 Balance -1425 / -1425 -1435 / -1435 Weight last 48 hrs Weight 196 lb Physical Exam Narrative: EXAM NARRATIVE: General: Alert and oriented x3 Eyes: PERRLA, EOMI Mouth: Mucous membranes moist without lesions. Cardiac: Regular rate and rhythm without murmurs Lungs: Clear to auscultation bilaterally without wheezes, crackles or rhonchi Abdomen: Soft, nontender, no hepatosplenomegaly noted Extremities: No edema Hospital Course Hospital Course: The patient was admitted with hyponatremia after having a seizure. There was concern that this could have been contributing. For this reason he was admitted overnight and given IV fluids. The patient's sodium level has improved well with IV fluid hydration. The patient had been purposely limiting salt intake due to having a stent placed last year. He was trying to be on a low-salt diet. He was advised that he can increase beyond what he is currently taking. The patient is feeling well at this time and denies any chest pains, cough, abdominal pain, nausea, vomiting, diarrhea, constipation. He would like to be discharged home. I am in agreement that he is medically stable for discharge. All questions were answered. SSS Data Data Completed and Pending: Completed Studies During Hospitalization Category Date Time Status CT head wo con* [id number] Urgent Cat Scan 07/20/19 22:20 Completed XR chest 1V carl ble [id number] Stat Exams 07/20/19 22:19 Completed Diagnoses at Discharge Discharge Diagnosis (1) Acute hyponatremia: Status: Acute (2) Generalized seizure: Status: Acute Discharge Plan Discharge Patient Disposition: Home, Self-Care Condition: Stable Prescriptions: Continued levetiracetam 750 mg tablet 750 mg PO BID RF: 0 metoprolol tartrate 25 mg tablet 25 mg PO BID RF: 0 clopidogrel 75 mg tablet 75 mg PO DAILY RF: 0 aspirin [Adult Low Dose Aspirin] 81 mg tablet,delayed release (DR/EC) 81 mg PO DAILY RF: 0 atorvastatin 40 mg tablet 40 mg PO DAILY RF: 0 Zofran 4 mg tablet 4 mg PO Q6H PRN (Reason: nausea and vomiting) Qty: 20 RF: 0 Discharge Orders: Discharge Order (Routine); Ordered 07/21/19 Ordered By: Matias Echevarria Referrals: Matias Echevarria MD [Primary Care Provider] - 7-10 days Discharge Diet: Cardiac Discharge Activity: Increase activity as tolerated Activity Restrictions/Additional Instructions: No driving due to having a seizure. Attestations Medical Necessity Statement*: The patient was admitted for observation secondary to hyponatremia in association with a seizure. He is doing better and may be discharged home at this time. I do not expect to stay to cross 2 midnights. Time Spent in Patient Care*: greater than 30 min Quality Metrics Clinical Quality Measures: During this hospital stay, did patient experience: None Coding Level of Care Code Acute Animal Sticker for [facility] Fwd Diagnoses Acute hyponatremia E87.1 Generalized seizure R56.9
== END 2019-07-21 15:45 | disposition home or self-care (01) ==
LOC: ER 23:36 → MEDSURG 07-21 00:47
PROVIDERS: Admitting Provider Family Medicine; Emergency Provider Emergency Medicine; Family Provider Family Medicine; PCP Family Medicine; Visit Provider Family Medicine
DX: E87.1 Hypo-osmolality and hyponatremia (principal); R56.9 Unspecified convulsions; Z79.82 Long term (current) use of aspirin; I25.10 Atherosclerotic heart disease of native coronary artery without angina pectoris; E78.2 Mixed hyperlipidemia; Z95.5 Presence of coronary angioplasty implant and graft
CPT/HCPCS: 12345; 70450; 71045; 80048; 80053; 80306; 80307; 81001; 83735; 84484; 85025; 85610; 93005; 96365; 96366; 96374; 96375; 99284; 99285; A9270; G0378; J2060; J3490; J7030

== ENCOUNTER 2019-08-13 13:57 | Emergency (ER) | payer MEDICAID, SELFPAY ==
[2019-08-13 13:58] VITALS: BMI 25.1
[2019-08-13 14:03] VITALS: BP 163/86; PULSE 69; RESP 22; TEMP 36.8; O2SAT 96
--- NOTE | 2019-08-13 14:22 | CTR_ITS ---
PROCEDURE INFORMATION: Exam: CT Head Without Contrast Exam date and time: 08/13/2019 2:33 PM Age: 68 years old Clinical indication: Altered mental status/memory loss; Confusion or disorientation; Patient HX: Weakness and disorientation w HX of seizures; Additional info: AMS TECHNIQUE: Imaging protocol: Computed tomography of the head without contrast. Axial, coronal and sagittal reformatted images were created and reviewed. Radiation optimization: All CT scans at this facility use at least one of these dose optimization techniques: automated exposure control; mA and/or kV adjustment per patient size (includes targeted exams where dose is matched to clinical indication); or iterative reconstruction. COMPARISON: CT head wo con* [id number] 07/20/2019 10:35 PM RADIATION DOSE METRICS: Total DLP: 862.74 mGy-cm FINDINGS: Brain: Patchy areas of hypoattenuation in the periventricular and subcortical white matter, consistent with chronic small vessel ischemic disease. No CT evidence of acute intracranial hemorrhage or acute territorial infarction. No significant mass effect or midline shift. Basal cisterns patent. Ventricles: Prominence of the cortical sulci, cisterns and ventricular system, consistent with cerebral and cerebellar volume loss. Bones/joints: No acute osseous abnormality. Sinuses: Mild left greater than right ethmoid and left maxillary sinus mucosal thickening. Mastoid air cells: Grossly unremarkable. Soft tissues: Grossly unremarkable. Vasculature: Calcific atherosclerotic disease in the cavernous internal carotid arteries. CT/CT head wo con* [id number]: 1[address] No CT evidence of acute intracranial pathology. 2. Additional findings, as above. Radiation Dose CTDIVOL = (mGy): DLP = 862.74 (mGy-cm)
--- NOTE | 2019-08-13 14:22 | XRR_ITS ---
PROCEDURE INFORMATION: Exam: XR Chest, 1 View Exam date and time: 08/13/2019 2:39 PM Age: 68 years old Clinical indication: Other: AMS TECHNIQUE: Imaging protocol: XR of the chest Views: 1 view. COMPARISON: CR XR chest 1V portable [id number] 07/20/2019 10:23 PM FINDINGS: Lungs: Streaky opacities at the lung bases, likely secondary to atelectasis and/or scarring. No consolidation. Pleural space: Unremarkable. No pleural effusion. No pneumothorax. Heart/Mediastinum: Unremarkable. No cardiomegaly. Bones/joints: No acute osseous abnormality. Mild degenerative changes of the spine and shoulders. XR/XR chest 1V portable [id number] IMPRESSION: No acute radiographic findings.
--- NOTE | 2019-08-13 14:23 | ECG_ITS ---
Measurements Intervals [place] Rate: 70 P: 68 [place]: 189 QRS: 60 QRSD: 116 T: 38 QT: 392 QTc: 424 SINUS RHYTHM WITH FREQUENT SUPRAVENTRICULAR PREMATURE COMPLEXES POSSIBLE LEFT ATRIAL ENLARGEMENT [-0.1mV P WAVE IN V1/V2] INCOMPLETE RIGHT BUNDLE BRANCH BLOCK Compared to ECG 07/21/2019 00:01:29 Sinus bradycardia no longer present Electronically Signed On 08-14-2019 19:56:43 CDT by Terese Russo M.D. [email or web address]
[2019-08-13 14:32] LABS: Basophils % 0.6 %; Eosinophils # 0.4 10^3/uL (0.0-0.8); Hematocrit 40.9 % (42.0-52.0); Hemoglobin 13.2 g/dL (11.7-16.6); Lymphocytes # 1.7 10^3/uL (0.8-4.8); Lymphocytes % 23.4 %; Mean Corpuscular HGB Conc 32.3 g/dL (30.0-36.0); Mean Corpuscular Hemoglobin 29.7 pg (28.0-34.0); Mean Corpuscular Volume 92.1 fL (80-94); Monocytes # 0.5 10^3/uL (0.2-0.9); Monocytes % 7.6 %; Neutrophils # 4.5 10^3/uL (1.8-7.7); Neutrophils % 62.3 %; Nucleated Red Blood Cells % 0 %; Platelet Count 220 10^3/cmm (130-400); Red Blood Count 4.44 10^6/uL (4.1-5.3); Red Cell Distribution Width 13.6 % (12.1-15.1); White Blood Count 7.1 10^3/uL (4.0-10.0)
--- NOTE | 2019-08-13 14:32 | PC.NURSE ---
Lab at bedside to draw blood. Pt given urinal for UA, states he does not believe he can void at this time.
[2019-08-13] MEDS: sodium chloride 0.9% 500 ML IV (14:35)
--- NOTE | 2019-08-13 14:35 | PC.NURSE ---
XR performed at bedside
[2019-08-13 14:42] VITALS: BP 159/69; PULSE 72; RESP 18; O2SAT 98
[2019-08-13 14:42] LABS: Troponin(5th) Baseline 12 ng/mL (0-15)
--- NOTE | 2019-08-13 14:42 | PC.NURSE ---
Pt to CT
--- NOTE | 2019-08-13 14:53 | PC.NURSE ---
Pt returned from CT
[2019-08-13 14:55] LABS: Alanine Aminotransferase 18 U/L (0-41); Albumin Level 4.2 g/dL (3.5-5.2); Alkaline Phosphatase 35 IU/L (40-130); Anion Gap 16.4 (5-19); Aspartate Amino Transferase 26 U/L (0-40); Blood Urea Nitrogen 14 mg/dL (8-23); Calcium 9.6 mg/dL (8.5-10.5); Carbon Dioxide 26 mmol/L (22-29); Chloride 96 mmol/L (98-107); Globulin 2.6 g/dL (1.3-4.6); Glomerular Filtration Rate 74.1 mL/min (90-130); Glucose 89 mg/dL (65-115); Osmolality Calculated 274 mOsm/kg (285-295); Potassium 4.4 mmol/L (3.5-5.1); Sodium 134 mmol/L (136-145); Thyroid Stimulating Hormone 3.58 uIU/mL (0.27-4.20); Total Bilirubin 0.6 mg/dL (0.15-1.2); Total Protein 6.8 g/dL (6.6-8.7)
[2019-08-13 14:59] LABS: Lactate (Lactic Acid level) 0.7 mmol/L (0.5-2.2)
[2019-08-13 15:04] LABS: ABG PCO2 40.3 mmHg (35-45); ABG PH Result 7.41 (7.35-7.45); Arterial Blood Gas Hematocrit 41.8 % (42-52); Base Excess ABG 0.9 mmol/L (-2.0-2.0); Blood Gas Allen Test Pos; Blood Gas Sample Site Radial, left; Blood Gas Sample Type Arterial; HCO3 ABG 25.6 mmol/L (22-26); Oxygen Device ROOM AIR; PO2 ABG 87.4 mmHg (80.0-100.0)
--- NOTE | 2019-08-13 15:04 | ED_ITS ---
HPI - Altered Mental Status General: Chief Complaint: Altered Mental Status Stated Complaint: GENERAL WEAKNESS Time Seen by Provider: 08/13/19 13:58 History of Present Illness: HPI narrative: Patient states he was doing some light work and apparently lost consciousness. Patient does have a seizure disorder but has seizures only rarely. Bystanders did not report any physical convulsions. Patient exhibits the traits of a post ictal patient upon arrival but his mental status is improving rapidly. MD complaint: altered mental status and confusion Severity: similar to previous episodes Context: history of similar presentation and seizure disorder Review of Systems General: Reports: 10 or more systems reviewed and unremarkable except in HPI and below Neuro: Reports: seizure-like activity [facility] ED PFSH: Medical History Atrial fibrillation Coronary artery disease Mixed hyperlipidemia Pneumonia Presence of stent in LAD coronary artery Seizure disorder Subdural hemorrhage Surgical History History of appendectomy Hx of tonsillectomy Family History Other Cancer Social History Smoking and tobacco status: never smoked Physical Exam Const: COMMON NORMALS: no acute distress, patient oriented x3, no limitations, alert and well nourished HENMT: COMMON NORMALS: normocephalic and atraumatic HEAD & SCALP: normocephalic and atraumatic Neck/C-Spine: COMMON NORMALS: full ROM, no lymphadenopathy, no meningeal signs and no JVD Resp: COMMON NORMALS: normal respiratory effort, No retractions, No use of accessory muscles and clear to auscultation bilaterally AUSCULTATION: clear to auscultation bilaterally Cardio: COMMON NORMALS: no JVD, regular rate, regular rhythm and No murmurs present (Cardio) RATE: regular rate RHYTHM: regular rhythm GI: COMMON NORMALS: Normal to inspection, nondistended, normoactive bowel sounds present : COMMON NORMALS: Yes no CVA tenderness BLADDER/KIDNEY EXAM: Yes no CVA tenderness Back/Pelvis: COMMON NORMALS: no CVA tenderness and thoracic and lumbar spine normal to inspection Neuro: COMMON NORMALS: patient oriented x3 SENSORIUM/ORIENTATION: Yes alert MENINGEAL SIGNS: Yes no meningeal signs Psych: COMMON NORMALS: mental status grossly normal, Normal thought process present, cooperative, normal affect, speech normal, activity/motor behavior normal, denies hallucinations, denies homicidal ideation and denies suicidal ideation SPEECH: Yes normal speech THOUGHT PROCESS: Normal thought process present Skin: COMMON NORMALS: no rashes or lesions noted, turgor normal and no mottling GENERAL SKIN EXAM: no rashes or lesions noted and turgor normal Course Vital Signs: Vital signs: Vital Signs Temperature 98.3 F 08/13/19 14:03 Pulse Rate 126 H 08/13/19 15:32 Respiratory Rate 18 08/13/19 15:32 Blood Pressure 133/80 08/13/19 15:32 Pulse Oximetry 97 08/13/19 15:32 MDM - Altered Mental Status Lab Data: Labs: Lab Results 08/13/19 08/13/19 08/13/19 Range/Units 13:45 13:45 13:45 WBC 7.1 (4.0-10.0) 10^3/ uL RBC 4.44 (4.1-5.3) 10^6/u L Hgb 13.2 (11.7-16.6) g/dL Hct 40.9 L (42.0-52.0) % MCV 92.1 (80-94) fL MCH 29.7 (28.0-34.0) pg MCHC 32.3 (30.0-36.0) g/dL RDW 13.6 (12.1-15.1) % Plt Count 220 (130-400) 10^3/c mm MPV 10.0 (7.4-10.4) fL Neut % (Auto) 62.3 % Lymph % (Auto) 23.4 % Wilkes % (Auto) 7.6 % Eos % (Auto) 6.0 % Baso % (Auto) 0.6 % Neut # (Auto) 4.5 (1.8-7.7) 10^3/u L Lymph # (Auto) 1.7 (0.8-4.8) 10^3/u L Wilkes # (Auto) 0.5 (0.2-0.9) 10^3/u L Eos # (Auto) 0.4 (0.0-0.8) 10^3/u L Baso # (Auto) 0.0 (0.0-0.1) 10^3/u L Nucleated RBC % (a uto) 0 % Nucleated RBCs # 0.0 /100WBC Specimen Type Sample Site ABG pH (7.35-7.45) ABG pCO2 (35-45) mmHg ABG pO2 (80.0-100.0) mmH g ABG HCO3 (22-26) mmol/L ABG Base Excess (-2.0-2.0) mmol/ L Adriano Test Hematocrit (42-52) % O2 Delivery Device Nailing Machine Feeder ID Sodium 134 L (136-145) mmol/L Potassium 4.4 (3.5-5.1) mmol/L Chloride 96 L (98-107) mmol/L Carbon Dioxide 26 (22-29) mmol/L Anion Gap 16.4 (5-19) BUN 14 (8-23) mg/dL Creatinine 1.0 (0.7-1.2) mg/dL GFR Calculation 74.1 L (90-130) mL/min Glucose 89 (65-115) mg/dL Calculated Osmolal ity 274 L (285-295) mOsm/k g Lactate (0.5-2.2) mmol/L Calcium 9.6 (8.5-10.5) mg/dL Total Bilirubin 0.6 (0.15-1.2) mg/dL AST 26 (0-40) U/L ALT 18 (0-41) U/L Alkaline Phosphata se 35 L (40-130) IU/L Troponin T Baselin e 12 (0-15) ng/mL Troponin T 120 Min [place] (0-15) ng/mL Total Protein 6.8 (6.6-8.7) g/dL Albumin 4.2 (3.5-5.2) g/dL Globulin 2.6 (1.3-4.6) g/dL TSH 3.58 (0.27-4.20) uIU/ mL Urine Color (Yellow) Urine Appearance (CLEAR) Urine pH (5-7) Ur Specific Gravit y (1.005-1.030) Urine Protein (Negative) Urine Glucose (UA) (Normal) Urine Ketones (Negative) Urine Blood (Negative) Urine Nitrate (Negative) Urine Bilirubin (NEGATIVE) Urine Urobilinogen (Negative) mg/dL Ur Leukocyte Evelyn ase (Negative) Urine Opiates Scre en (Negative) ng/mL Ur Barbiturates Sc reen (Negative) ng/mL Ur Phencyclidine S crn (Negative) ng/mL Ur Amphetamines Sc reen (Negative) ng/mL U Benzodiazepines Scrn (Negative) ng/mL Urine Cocaine Scre en (Negative) ng/mL U Marijuana (THC) Screen (Negative) ng/mL 08/13/19 08/13/19 08/13/19 Range/Units 14:39 14:52 15:10 WBC (4.0-10.0) 10^3/ uL RBC (4.1-5.3) 10^6/u L Hgb (11.7-16.6) g/dL Hct (42.0-52.0) % MCV (80-94) fL MCH (28.0-34.0) pg MCHC (30.0-36.0) g/dL RDW (12.1-15.1) % Plt Count (130-400) 10^3/c mm MPV (7.4-10.4) fL Neut % (Auto) % Lymph % (Auto) % Wilkes % (Auto) % Eos % (Auto) % Baso % (Auto) % Neut # (Auto) (1.8-7.7) 10^3/u L Lymph # (Auto) (0.8-4.8) 10^3/u L Wilkes # (Auto) (0.2-0.9) 10^3/u L Eos # (Auto) (0.0-0.8) 10^3/u L Baso # (Auto) (0.0-0.1) 10^3/u L Nucleated RBC % (a uto) % Nucleated RBCs # /100WBC Specimen Type Arterial Sample Site Radial, left ABG pH 7.41 (7.35-7.45) ABG pCO2 40.3 (35-45) mmHg ABG pO2 87.4 (80.0-100.0) mmH g ABG HCO3 25.6 (22-26) mmol/L ABG Base Excess 0.9 (-2.0-2.0) mmol/ L Adriano Test Pos Hematocrit 41.8 L (42-52) % O2 Delivery Device Room air Nailing Machine Feeder ID [id number] Sodium (136-145) mmol/L Potassium (3.5-5.1) mmol/L Chloride (98-107) mmol/L Carbon Dioxide (22-29) mmol/L Anion Gap (5-19) BUN (8-23) mg/dL Creatinine (0.7-1.2) mg/dL GFR Calculation (90-130) mL/min Glucose (65-115) mg/dL Calculated Osmolal ity (285-295) mOsm/k g Lactate 0.7 (0.5-2.2) mmol/L Calcium (8.5-10.5) mg/dL Total Bilirubin (0.15-1.2) mg/dL AST (0-40) U/L ALT (0-41) U/L Alkaline Phosphata se (40-130) IU/L Troponin T Baselin e (0-15) ng/mL Troponin T 120 Min [place] (0-15) ng/mL Total Protein (6.6-8.7) g/dL Albumin (3.5-5.2) g/dL Globulin (1.3-4.6) g/dL TSH (0.27-4.20) uIU/ mL Urine Color (Yellow) Urine Appearance (CLEAR) Urine pH (5-7) Ur Specific Gravit y (1.005-1.030) Urine Protein (Negative) Urine Glucose (UA) (Normal) Urine Ketones (Negative) Urine Blood (Negative) Urine Nitrate (Negative) Urine Bilirubin (NEGATIVE) Urine Urobilinogen (Negative) mg/dL Ur Leukocyte Evelyn ase (Negative) Urine Opiates Scre en Negative (Negative) ng/mL Ur Barbiturates Sc reen Negative (Negative) ng/mL Ur Phencyclidine S crn Negative (Negative) ng/mL Ur Amphetamines Sc reen Negative (Negative) ng/mL U Benzodiazepines Scrn Negative (Negative) ng/mL Urine Cocaine Scre en Negative (Negative) ng/mL U Marijuana (THC) Screen Negative (Negative) ng/mL 08/13/19 08/13/19 Range/Units 15:10 16:14 WBC (4.0-10.0) 10^3/ uL RBC (4.1-5.3) 10^6/u L Hgb (11.7-16.6) g/dL Hct (42.0-52.0) % MCV (80-94) fL MCH (28.0-34.0) pg MCHC (30.0-36.0) g/dL RDW (12.1-15.1) % Plt Count (130-400) 10^3/c mm MPV (7.4-10.4) fL Neut % (Auto) % Lymph % (Auto) % Wilkes % (Auto) % Eos % (Auto) % Baso % (Auto) % Neut # (Auto) (1.8-7.7) 10^3/u L Lymph # (Auto) (0.8-4.8) 10^3/u L Wilkes # (Auto) (0.2-0.9) 10^3/u L Eos # (Auto) (0.0-0.8) 10^3/u L Baso # (Auto) (0.0-0.1) 10^3/u L Nucleated RBC % (a uto) % Nucleated RBCs # /100WBC Specimen Type Sample Site ABG pH (7.35-7.45) ABG pCO2 (35-45) mmHg ABG pO2 (80.0-100.0) mmH g ABG HCO3 (22-26) mmol/L ABG Base Excess (-2.0-2.0) mmol/ L Adriano Test Hematocrit (42-52) % O2 Delivery Device Nailing Machine Feeder ID Sodium (136-145) mmol/L Potassium (3.5-5.1) mmol/L Chloride (98-107) mmol/L Carbon Dioxide (22-29) mmol/L Anion Gap (5-19) BUN (8-23) mg/dL Creatinine (0.7-1.2) mg/dL GFR Calculation (90-130) mL/min Glucose (65-115) mg/dL Calculated Osmolal ity (285-295) mOsm/k g Lactate (0.5-2.2) mmol/L Calcium (8.5-10.5) mg/dL Total Bilirubin (0.15-1.2) mg/dL AST (0-40) U/L ALT (0-41) U/L Alkaline Phosphata se (40-130) IU/L Troponin T Baselin e (0-15) ng/mL Troponin T 120 Min [place] 9.08 (0-15) ng/mL Total Protein (6.6-8.7) g/dL Albumin (3.5-5.2) g/dL Globulin (1.3-4.6) g/dL TSH (0.27-4.20) uIU/ mL Urine Color Yellow (Yellow) Urine Appearance Clear (CLEAR) Urine pH 5 (5-7) Ur Specific Gravit y 1.015 (1.005-1.030) Urine Protein Neg (Negative) Urine Glucose (UA) Norm (Normal) Urine Ketones Negative (Negative) Urine Blood Neg (Negative) Urine Nitrate Negative (Negative) Urine Bilirubin Neg (NEGATIVE) Urine Urobilinogen Norm (Negative) mg/dL Ur Leukocyte Evelyn ase Negative (Negative) Urine Opiates Scre en (Negative) ng/mL Ur Barbiturates Sc reen (Negative) ng/mL Ur Phencyclidine S crn (Negative) ng/mL Ur Amphetamines Sc reen (Negative) ng/mL U Benzodiazepines Scrn (Negative) ng/mL Urine Cocaine Scre en (Negative) ng/mL U Marijuana (THC) Screen (Negative) ng/mL Discharge Plan Discharge Patient Disposition: Home, Self-Care Clinical Impression: Seizure Altered mental status Qualifiers: Altered mental status type: transient alteration of awareness Qualified Code(s): R40.4 - Transient alteration of awareness Condition: Stable Prescriptions: No Action levetiracetam 750 mg tablet 750 mg PO BID RF: 0 metoprolol tartrate 25 mg tablet 25 mg PO BID RF: 0 clopidogrel 75 mg tablet 75 mg PO DAILY RF: 0 aspirin [Adult Low Dose Aspirin] 81 mg tablet,delayed release (DR/EC) 81 mg PO DAILY RF: 0 atorvastatin 40 mg tablet 40 mg PO BEDTIME RF: 0 Discharge Orders: Discharge Order (Routine); Ordered 08/13/19 Ordered By: Rich Victoria Referrals: Matias Echevarria MD [Primary Care Provider] - Coding Level of Care Code ED Parliamentary Archivist for g Fwd Exam Comprehensive
[2019-08-13 15:23] LABS: Add Urine Microscopic? NO
[2019-08-13 15:28] LABS: Bilirubin Urine Neg (NEGATIVE); Blood Urine Neg (Negative); Glucose Urine UA Norm (Normal); Ketones Urine Negative (Negative); Leukocyte Esterase Urine Negative (Negative); Nitrate Urine Negative (Negative); Protein Urine Neg (Negative); Specific Gravity, Urine 1.015 (1.005-1.030); Urine Appearance Clear (CLEAR); Urine Color Yellow (Yellow); Urobilinogen Urine Norm (Negative); pH Urine 5 (5-7)
[2019-08-13 15:32] VITALS: BP 133/80; PULSE 126; RESP 18; O2SAT 97
[2019-08-13 15:56] LABS: Amphetamines Screen Urine Negative (Negative); Barbiturates Screen Urine Negative (Negative); Benzodiazepines Screen Urine Negative (Negative); Cocaine Screen Urine Negative (Negative); Opiate Screen Urine Negative (Negative); PCP Screen Urine Negative (Negative); THC Screen Urine Negative (Negative)
--- NOTE | 2019-08-13 16:23 | ECG_ITS ---
Measurements Intervals [place] Rate: 65 P: 59 AR: 176 QRS: 51 QRSD: 114 T: 37 QT: 391 QTc: 407 SINUS RHYTHM INCOMPLETE RIGHT BUNDLE BRANCH BLOCK [90+ ms QRS DURATION, TERMINAL R IN V1/V2, 40+ ms S IN I/aVL/V4/V5/V6] Compared to ECG 07/21/2019 00:01:29 Sinus bradycardia no longer present Electronically Signed On 08-14-2019 20:24:58 CDT by Terese Russo M.D. [id number]
[2019-08-13 16:35] LABS: Troponin 5 2HR 9.08 ng/mL (0-15)
[2019-08-13 16:55] VITALS: BP 147/82; PULSE 110; RESP 18; O2SAT 100
[2019-08-13 16:55] LABS: Troponin 5 2HR Delta -2.92 ABS# (0-10)
[2019-08-13 17:43] VITALS: BP 170/81; PULSE 66; RESP 17; O2SAT 97
== END 2019-08-13 18:22 | disposition home or self-care (01) ==
PROVIDERS: Emergency Provider Family Medicine; PCP Family Medicine
DX: R40.4 Transient alteration of awareness (principal); G40.89 Other seizures; Z79.82 Long term (current) use of aspirin; Z79.02 Long term (current) use of antithrombotics/antiplatelets; I48.91 Unspecified atrial fibrillation; I25.10 Atherosclerotic heart disease of native coronary artery without angina pectoris; E78.2 Mixed hyperlipidemia
CPT/HCPCS: 12345; 36415; 36600; 70450; 71045; 80053; 80306; 81003; 82803; 83605; 84443; 84484; 85025; 87040; 93005; 96360; 99283; 99284; J7040

== ENCOUNTER 2021-08-31 12:00 | Emergency (ER) | payer MEDICAID, SELFPAY ==
[2021-08-31] VITALS (7 sets, daily range): BP systolic 86–117; BP diastolic 51–79; PULSE 62–151; RESP 18; TEMP 36.5–37; O2SAT 94–98; BMI 23.3
--- NOTE | 2021-08-31 12:40 | ED_ITS ---
HPI - General Adult General: Chief complaint: General Medical Stated complaint: Coughing up green, Lightheaded, wont go away Time Seen by Provider: 08/31/21 12:31 [facility] ED PFSH: Medical History (Updated 08/21/19 @ 00:01 by ) Atrial fibrillation Coronary artery disease Mixed hyperlipidemia Pneumonia Presence of stent in LAD coronary artery Seizure disorder Subdural hemorrhage Surgical History History of appendectomy Hx of tonsillectomy Family History Other Cancer Social History Smoking and tobacco status: never smoked Course Vital Signs: Vital signs: Vital Signs Temperature 98.6 F 08/31/21 12:25 Pulse Rate 80 08/31/21 12:25 Respiratory Rate 18 08/31/21 12:25 Blood Pressure 117/51 08/31/21 12:25 Pulse Oximetry 97 08/31/21 12:25 Discharge Plan Discharge Condition: Stable Prescriptions: No Action levetiracetam 750 mg tablet 750 mg PO BID 0RF metoprolol tartrate 25 mg tablet 25 mg PO BID 0RF clopidogrel 75 mg tablet 75 mg PO DAILY 0RF aspirin [Adult Low Dose Aspirin] 81 mg tablet,delayed release (DR/EC) 81 mg PO DAILY 0RF Rx Instructions: pts friend/rosa states the pt will take on and off-she is unsure if pt is still taking atorvastatin 40 mg tablet 40 mg PO BEDTIME 0RF Referrals: Matias Echevarria MD [Primary Care Provider] - Coding Level of Care Code ED Rack Production Worker for Phylicia Sutherland
--- NOTE | 2021-08-31 12:45 | ECG_ITS ---
[facility] Test Date: 2021-08-31 Pat Name: Ernique Morales Department: Room: Gender: Male 3D Designer: : 1950 Requested By: Sita Royal Order Number: [id number] Reading MD: Gil Valdes M.D. Measurements Intervals [place] Rate: 156 P: NM: QRS: 65 QRSD: 98 T: 42 QT: 275 QTc: 444 Interpretive Statements Narrow complex tachycardia, atrial fibrillation versus sinus tachycardia versus SVT Right bundle branch block POSSIBLE RIGHT VENTRICULAR CONDUCTION DELAY [RSR (QR) IN V1/V2] CRITICAL TEST RESULT Compared to ECG 08/13/2019 16:57:32 Sinus rhythm no longer present Electronically Signed On 09-01-2021 16:19:35 CDT by Gil Valdes M.D. [email or web address]
--- NOTE | 2021-08-31 12:46 | XRR_ITS ---
PROCEDURE INFORMATION: Exam: XR Chest Exam date and time: 08/31/2021 1:02 PM Age: 70 years old Clinical indication: Other: Afib with rvr; Prior surgery; Surgery type: Stents TECHNIQUE: Imaging protocol: XR of the chest. Views: 1 view. COMPARISON: CR XR chest 1V portable [id number] 08/13/2019 2:47 PM FINDINGS: Lungs: Unremarkable. No consolidation. Pleural spaces: Unremarkable. No pleural effusion. No pneumothorax. Heart/Mediastinum: Unremarkable. No cardiomegaly. Bones/joints: Unremarkable. XR/XR chest 1V portable [id number] IMPRESSION: No acute findings.
--- NOTE | 2021-08-31 12:47 | W.ED.GENADLT ---
HPI - General Adult General: Chief complaint: General Medical Stated complaint: Coughing up green, Lightheaded, wont go away Time Seen by Provider: 08/31/21 12:31 History of Present Illness: Patient is a 70-year-old male with a history of atrial fibrillation on metoprolol only, CAD with stent x1 who presents the emergency room for cough x2 weeks. Patient tells me that for the last week he has had productive green phlegm. Patient denies any fever or chills. At this point is not getting better patient came to the emergency room for evaluation. Patient says that he has had 4 episodes of liquid stool in the last few days. Patient denies any antibiotic use. Denies any chest pain, shortness breath palpitation lightheadedness, nausea/vomiting diarrhea, sick contact, sore throat or runny nose. Patient denies any exertional shortness of breath or pleuritic chest pain or shortness of breath. On arrival, patient was noted to be in atrial fibrillation with RVR to the 150s. Patient has no focal complaints of lightheadedness or palpitations. He tells me that he occasionally skips his dose of metoprolol. Onset: 2 weeks ago Duration:2 weeks Location:home Severity:moderate Associated symptoms: Deny chest pain, dyspnea, nausea, rash, palpitations or vomiting Review of Systems Const: Denies: fever(s) or chills Eyes: Denies: change in vision ENMT: Denies: mouth pain Card: Denies: chest pain or palpitations Resp: Reports: productive cough; Denies: dyspnea GI: Denies: abdominal pain, nausea, vomiting or diarrhea : Denies: dysuria Musc: Denies: extremity pain Skin/Breast: Denies: rash or new lesions Neuro: Denies: weakness in extremities Psych: Reports: other (Normal mood) Branden/Lymph: Denies: easy bruising PFS ED PFSH: Medical History (Updated 08/31/21 @ 13:46 by Sita Royal MD) Atrial fibrillation Coronary artery disease Mixed hyperlipidemia Pneumonia Presence of stent in LAD coronary artery Seizure disorder Subdural hemorrhage Surgical History History of appendectomy Hx of tonsillectomy Family History Other Cancer Social History Smoking and tobacco status: never smoked Physical Exam Const: COMMON NORMALS: alert HENMT: COMMON NORMALS: atraumatic HEAD & SCALP: atraumatic MOUTH: moist mucous membranes not abnormal Eye: COMMON NORMALS: EOMs intact bilaterally and conjunctivae normal CONJUNCTIVA: Yes conjunctivae normal Neck/C-Spine: COMMON NORMALS: full ROM and supple Resp: COMMON NORMALS: normal respiratory effort and clear to auscultation bilaterally AUSCULTATION: clear to auscultation bilaterally Cardio: OTHER: +irregular irregular tachycardia GI: COMMON NORMALS: Soft to palpation and non-tender PALPATION: Yes Soft to palpation Extremity: COMMON NORMALS: full ROM Neuro: SENSORIUM/ORIENTATION: Yes alert MOTOR EXAM: No Abnormal motor strength present and Other motor observations present (no focal motor deficits) Psych: COMMON NORMALS: speech normal SPEECH: Yes normal speech MOOD & AFFECT: Yes euthymic mood Course Vital Signs: Vital signs: Vital Signs Temperature 97.7 F 08/31/21 14:21 Pulse Rate 81 08/31/21 14:21 Respiratory Rate 18 08/31/21 14:21 Blood Pressure 116/51 08/31/21 14:21 Pulse Oximetry 96 08/31/21 14:21 MDM - General Adult Medical Decision Making 70-year-old male with history atrial fibrillation, CAD with stent x1, hypertension and seizure presenting to the emergency room for evaluation of persistence of productive sputum green sputum. On arrival, patient is noted to be in A. fib with RVR to the 150s. Otherwise exam unremarkable. He received 20mg Cardizem with improvement heart rate to the 80s and PO cardiezem. Age adjusted dimer wnl. TSH/free T4 wnl. Tropnoin x 2 with delta <5. XR chest did not show any signs of pneumonia. Swabs negative. CHADVASC >1, will give eliquis. Patient denies any prior hx of GI bleeding, melena/hematochezia, or other source of bleeding. 20 minutes after giving the IV Cardizem, patient was noted to be to have a sinus pause of 4 seconds on the telemetry. This was discussed with Dr. Gil Valdes who thinks that this may be related to medication side effect. Dr. Valdes does not recommend inpatient admission at this time but rather close follow-up. Rx albuterol for cough, eliquis 5mg BID for atrial fibrillation Disposition: Discharge. Patient counseled regarding diagnostic impression, treatment plan. Patient given ED strict return precautions to return for continuation, worsening, or development of new symptoms. Instructed to f/u w/ PCP and Cardiology regarding symptoms today. Patient verbalized understanding. Lab Data : 08/31/21 13:00 08/31/21 13:00 Radiology Impressions Chest X-Ray 08/31/21 12:46 IMPRESSION: No acute findings. Laboratory Results WBC 12.1 10^3/uL (4.0-10.0) H 08/31/21 13:00 RBC 4.24 10^6/uL (4.1-5.3) 08/31/21 13:00 Hgb 13.1 g/dL (11.7-16.6) 08/31/21 13:00 Hct 38.3 % (42.0-52.0) L 08/31/21 13:00 MCV 90.3 fl (80-94) 08/31/21 13:00 MCH 30.9 pg (28.0-34.0) 08/31/21 13:00 MCHC 34.2 g/dL (30.0-36.0) 08/31/21 13:00 RDW 12.7 % (12.1-15.1) 08/31/21 13:00 Plt Count 314 10^3/cmm (130-400) 08/31/21 13:00 MPV 8.7 fL (7.4-10.4) 08/31/21 13:00 Neut % (Auto) 74.4 % 08/31/21 13:00 Lymph % (Auto) 14.6 % 08/31/21 13:00 [place] % (Auto) 7.0 % 08/31/21 13:00 Eos % (Auto) 3.1 % 08/31/21 13:00 Baso % (Auto) 0.6 % 08/31/21 13:00 Neut # (Auto) 9.00 10^3/uL (1.8-7.7) H 08/31/21 13:00 Lymph # (Auto) 1.8 10^3/uL (0.8-4.8) 08/31/21 13:00 [place] # (Auto) 0.8 10^3/uL (0.2-0.9) 08/31/21 13:00 Eos # (Auto) 0.4 10^3/uL (0.0-0.8) 08/31/21 13:00 Baso # (Auto) 0.1 10^3/uL (0.0-0.1) 08/31/21 13:00 Nucleated RBC % (auto) 0 % 08/31/21 13:00 Nucleated RBCs # 0.0 /100WBC 08/31/21 13:00 D-Dimer 0.71 ug/mIFEU (0-0.59) H 08/31/21 13:00 Sodium 134 mmol/L (136-145) L 08/31/21 13:00 Potassium 3.8 mmol/L (3.5-5.1) 08/31/21 13:00 Chloride 97 mmol/L (98-107) L 08/31/21 13:00 Carbon Dioxide 28 mmol/L (22-29) 08/31/21 13:00 Anion Gap 12.8 (5-19) 08/31/21 13:00 BUN 12 mg/dL (8-23) 08/31/21 13:00 Creatinine 1.1 mg/dL (0.7-1.2) 08/31/21 13:00 GFR Calculation Not Reportable 08/31/21 13:00 Glucose 94 mg/dL (65-115) 08/31/21 13:00 Calculated Osmolality 278 mOsm/kg (285-295) L 08/31/21 13:00 Calcium 8.5 mg/dL (8.5-10.5) 08/31/21 13:00 Total Bilirubin 0.5 mg/dL (0.15-1.2) 08/31/21 13:00 AST 11 U/L (0-40) 08/31/21 13:00 ALT 10 U/L (0-41) 08/31/21 13:00 Alkaline Phosphatase 25 IU/L (40-130) L 08/31/21 13:00 Troponin T Baseline 11 ng/L (0-15) 08/31/21 13:00 Total Protein 7.0 g/dL (6.6-8.7) 08/31/21 13:00 Albumin 3.3 g/dL (3.5-5.2) L 08/31/21 13:00 Globulin 3.7 g/dL (1.3-4.6) 08/31/21 13:00 Lipase 32 U/L (13-60) 08/31/21 13:00 TSH 3.45 uIU/mL (0.27-4.20) 08/31/21 13:00 Free T4 1.04 ng/dL (0.82-1.77) 08/31/21 13:00 Coronavirus 229E (PCR) Not detected (NOT DETECT) 08/31/21 13:10 Influenza Type A Ag Negative (Negative) 08/31/21 13:10 Influenza Type B Ag Negative (Negative) 08/31/21 13:10 SARS-CoV-2 (PCR) Not detected (NOT DETECT) 08/31/21 13:10 Imaging Data Other Imaging: Radiologist's impression: [address] [address] XRay Report Signed Patient: Enrique Morales Unit #: [id number] : 1950 Age/Sex: 70 / M ADM Date: 08/31/21 Loc: ER Room/Bed: Attending Dr: Ordering Provider/Ordering MD: Sita Royal MD Date of Service: 08/31/21 Procedure(s): XR chest 1V portable [id number] Accession Number(s): [id number] Report Number: [id number] PROCEDURE INFORMATION: Exam: XR Chest Exam date and time: 08/31/2021 1:02 PM Age: 70 years old Clinical indication: Other: Afib with rvr; Prior surgery; Surgery type: Stents TECHNIQUE: Imaging protocol: XR of the chest. Views: 1 view. COMPARISON: CR XR chest 1V portable [id number] 08/13/2019 2:47 PM FINDINGS: Lungs: Unremarkable. No consolidation. Pleural spaces: Unremarkable. No pleural effusion. No pneumothorax. Heart/Mediastinum: Unremarkable. No cardiomegaly. Bones/joints: Unremarkable. XR/XR chest 1V portable [id number] IMPRESSION: No acute findings. ? Dictated By: Obie Murphy Signed By: Obie Murphy Signed Date/Time: 08/31/21 1322 DD/ 1302 Discharge Plan Discharge Patient Disposition: Home Clinical Impression: Atrial fibrillation, Cough Condition: Stable Prescriptions: New Eliquis 5 mg tablet 5 mg PO BID 30 Days Qty: 60 0RF No Action levetiracetam 750 mg tablet 750 mg PO BID 0RF metoprolol tartrate 25 mg tablet 25 mg PO BID 0RF clopidogrel 75 mg tablet 75 mg PO DAILY 0RF aspirin [Adult Low Dose Aspirin] 81 mg tablet,delayed release (DR/EC) 81 mg PO DAILY 0RF atorvastatin 40 mg tablet 40 mg PO BEDTIME 0RF Discharge Orders: Discharge ED (Routine); Ordered 08/31/21 Ordered By: Sita Royal Referrals: Matias Echevarria MD [Primary Care Provider] - Discharge Diet: Advance as tolerated Discharge Activity: Increase activity as tolerated Patient Instructions: A-fib (Atrial Fibrillation) (ED) Activity Restrictions/Additional Instructions: Come back to the emergency room if any weakness in your arms or legs, if you have any facial droop, double vision, visual blindness, visual field deficits, balance problem, inability to walk, language difficulties or any new or concerning complaints. Here are the other suggestions for cough: Take mucinex as needed Drink green tea Stay hydrated Use a cough drop Have some honey (every few hours) Use a humidifier Elevate your bed when you sleep Apply menthol scented balm to your nose to decongest Come back to the emergency room if your symptoms worsen, have any shortness of breath, fever/chills, dehydration, inability tolerate food or drinks, any difficulty breathing, or any new or concerning complaints. Please take your blood thinner as instructed. Please follow up with your PCP for recheck for your blood work and to ensure your eliquis is working. Coding Level of Care Code ED Machine Joint Cutter for Dengg Fwd Exam Comprehensive
[2021-08-31] MEDS: dilTIAZem 5 mg/mL SDV 5 mL 20 MG IVP (12:55)
[2021-08-31] MEDS: sodium chloride 0.9% 500 ML IV (13:07)
[2021-08-31 13:14] LABS: Basophils # 0.1 10^3/uL (0.0-0.1); Basophils % 0.6 %; Eosinophils # 0.4 10^3/uL (0.0-0.8); Eosinophils % 3.1 %; Hematocrit 38.3 % (42.0-52.0); Hemoglobin 13.1 g/dL (11.7-16.6); Lymphocytes # 1.8 10^3/uL (0.8-4.8); Lymphocytes % 14.6 %; Mean Corpuscular HGB Conc 34.2 g/dL (30.0-36.0); Mean Corpuscular Hemoglobin 30.9 pg (28.0-34.0); Mean Corpuscular Volume 90.3 fl (80-94); Mean Platelet Volume 8.7 fL (7.4-10.4); Monocytes # 0.8 10^3/uL (0.2-0.9); Neutrophils % 74.4 %; Nucleated Red Blood Cells % 0 %; Platelet Count 314 10^3/cmm (130-400); Red Blood Count 4.24 10^6/uL (4.1-5.3); Red Cell Distribution Width 12.7 % (12.1-15.1); White Blood Count 12.1 10^3/uL (4.0-10.0)
[2021-08-31 13:26] LABS: D Dimer 0.71 ug/mIFEU (0-0.59)
[2021-08-31 13:35] LABS: Troponin(5th) Baseline 11 ng/L (0-15)
[2021-08-31 13:40] LABS: Alanine Aminotransferase 10 U/L (0-41); Albumin Level 3.3 g/dL (3.5-5.2); Alkaline Phosphatase 25 IU/L (40-130); Anion Gap 12.8 (5-19); Aspartate Amino Transferase 11 U/L (0-40); Blood Urea Nitrogen 12 mg/dL (8-23); Calcium 8.5 mg/dL (8.5-10.5); Carbon Dioxide 28 mmol/L (22-29); Chloride 97 mmol/L (98-107); Free T4 Free Thyroxine 1.04 ng/dL (0.82-1.77); Globulin 3.7 g/dL (1.3-4.6); Glucose 94 mg/dL (65-115); Lipase 32 U/L (13-60); Osmolality Calculated 278 mOsm/kg (285-295); Potassium 3.8 mmol/L (3.5-5.1); Sodium 134 mmol/L (136-145); Thyroid Stimulating Hormone 3.45 uIU/mL (0.27-4.20); Total Bilirubin 0.5 mg/dL (0.15-1.2)
[2021-08-31 14:05] LABS: Influenza A by IFA Negative (Negative); Influenza B by IFA Negative (Negative)
[2021-08-31 15:11] LABS: Adenovirus Not Detected (NOT DETECT); Chlamydia Pneumoniae Not Detected (NOT DETECT); Coronavirus 229E,HKU1,NL63,OC4 Not Detected (NOT DETECT); Human Metapneumovirus Not Detected (NOT DETECT); Human Rhinovirus/Enterovirus Not Detected (NOT DETECT); Influenza A Not Detected (NOT DETECT); Influenza A H1 Not Detected (NOT DETECT); Influenza A H1-2009 Not Detected (NOT DETECT); Influenza A H3 Not Detected (NOT DETECT); Influenza B Not Detected (NOT DETECT); Mycoplasma Pneumoniae Not Detected (NOT DETECT); Parainfluenza Virus Type 1 Not Detected (NOT DETECT); Parainfluenza Virus Type 2 Not Detected (NOT DETECT); Parainfluenza Virus Type 3 Not Detected (NOT DETECT); Parainfluenza Virus Type 4 Not Detected (NOT DETECT); Respiratory Syncytial Virus A Not Detected (NOT DETECT); Respiratory Syncytial Virus B Not Detected (NOT DETECT); SARS-COV-2 Not Detected (NOT DETECT)
== END 2021-08-31 14:22 | disposition home or self-care (01) ==
PROVIDERS: Emergency Provider Emergency Medicine; PCP Family Medicine
DX: I48.91 Unspecified atrial fibrillation (principal); R05.9 Cough, unspecified; I25.10 Atherosclerotic heart disease of native coronary artery without angina pectoris; I10 Essential (primary) hypertension; Z79.82 Long term (current) use of aspirin
CPT/HCPCS: 71045; 80053; 83690; 84439; 84443; 84484; 85025; 85378; 87635; 87804; 93005; 96374; 99285; J3490; J7040

== ENCOUNTER 2022-08-29 23:16 | Emergency (ER) | payer MEDICAID, SELFPAY ==
[2022-08-29 23:17] VITALS: BP 165/95; PULSE 70; RESP 18; TEMP 37; O2SAT 97; BMI 25.1
--- NOTE | 2022-08-29 23:28 | CTR_ITS ---
PROCEDURE INFORMATION: Exam: CT Head Without Contrast Exam date and time: 08/29/2022 11:38 PM Age: 71 years old Clinical indication: Condition or disease; Convulsions or seizures; Patient HX: Seizure. History of seizure disorder. TECHNIQUE: Imaging protocol: Computed tomography of the head without contrast. Radiation optimization: All CT scans at this facility use at least one of these dose optimization techniques: automated exposure control; mA and/or kV adjustment per patient size (includes targeted exams where dose is matched to clinical indication); or iterative reconstruction. REPORTING DATA: Count of CT and Cardiac NM exams in prior 12 months: This patient has received 0 known CTs and 0 known cardiac nuclear medicine studies in the 12 months prior to the current study. COMPARISON: CT head wo con* [id number] 08/13/2019 2:43 PM RADIATION DOSE METRICS: Total DLP (mGy-cm): 1055.58 FINDINGS: Brain: No acute intra- or extra axial fluid collections are identified. The basal cisterns are patent. No mass effect or midline shift is seen. The tyler-white matter differentiation is normal. Periventricular hypoattenuation are nonspecific but likely the sequela of chronic small vessel ischemic disease. Cerebral ventricles: There is mild cerebral volume loss with associated ex vacuo dilation of the ventricles. Pituitary gland and sella: There is a partial empty sella Paranasal sinuses: The paranasal sinuses appear grossly clear. Mastoid air cells: The mastoid air cells appear grossly clear. Small amount of cerumen in the external auditory canals. Orbital cavities: The orbits appear normal. Bones/joints: No acute calvarial fracture is identified. There are degenerative changes of the temporomandibular joints. Soft tissues: No soft tissue abnormalities identified. Vasculature: There are atherosclerotic calcifications of the carotid siphons. CT/CT head wo con* [id number] IMPRESSION: No evidence of acute intracranial hemorrhage, mass effect, or midline shift.
--- NOTE | 2022-08-29 23:28 | XRR_ITS ---
PROCEDURE INFORMATION: Exam: XR Chest Exam date and time: 08/29/2022 11:36 PM Age: 71 years old Clinical indication: Other: Seizure TECHNIQUE: Imaging protocol: Radiologic exam of the chest. Views: 1 view. COMPARISON: CR XR chest 1V portable [id number] 08/31/2021 1:02 PM FINDINGS: Lungs: Mild bibasilar opacities and adjacent atelectasis, more on the right side. Mild peribronchial cuffing could represent bronchitis. Pleural spaces: The right costophrenic angle and to a lesser extent the left are obscured. Can not exclude trace layering pleural effusions. No large pleural effusion. No pneumothorax. Heart/Mediastinum: The cardiomediastinal silhouette is stable in appearance. Vasculature: The thoracic aorta is tortuous and atherosclerotic. Bones/joints: There are degenerative changes of the spine and shoulder joints. XR/XR chest 1V portable [id number] IMPRESSION: 1. Mild bibasilar opacities may represent atelectasis, inflammation, or infection. Trace layering pleural effusions can not be excluded. 2. Otherwise, no significant change since prior.
--- NOTE | 2022-08-29 23:29 | ECG_ITS ---
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 Measurements Intervals [place] Rate: 54 P: 67 [place]: 175 QRS: 63 QRSD: 116 T: 54 QT: 406 QTc: 385 Interpretive Statements SINUS BRADYCARDIA INCOMPLETE RIGHT BUNDLE BRANCH BLOCK [90+ ms QRS DURATION, TERMINAL R IN V1/V2, 40+ ms S IN I/aVL/V4/V5/V6] Compared to ECG 08/31/2021 12:51:46 Incomplete right bundle-branch block now present Sinus tachycardia no longer present Atrial fibrillation no longer present Narrow-QRS tachycardia no longer present Right bundle-branch block no longer present Electronically Signed On 08-30-2022 10:13:44 CDT by Tom Ospina M.D. [id number]
[2022-08-29 23:41] LABS: Basophils # 0.1 10^3/uL (0.0-0.1); Basophils % 0.6 %; Eosinophils # 0.3 10^3/uL (0.0-0.8); Eosinophils % 3.7 %; Hematocrit 39.8 % (42.0-52.0); Hemoglobin 13.3 g/dL (11.7-16.6); Lymphocytes # 1.2 10^3/uL (0.8-4.8); Lymphocytes % 14.9 %; Mean Corpuscular HGB Conc 33.4 g/dL (30.0-36.0); Mean Corpuscular Hemoglobin 29.8 pg (28.0-34.0); Mean Corpuscular Volume 89.2 fl (80-94); Mean Platelet Volume 9.7 fL (7.4-10.4); Monocytes # 0.5 10^3/uL (0.2-0.9); Neutrophils # 6.15 10^3/uL (1.8-7.7); Neutrophils % 74.4 %; Nucleated Red Blood Cells % 0 %; Platelet Count 194 10^3/cmm (130-400); Red Blood Count 4.46 10^6/uL (4.1-5.3); Red Cell Distribution Width 13.8 % (12.1-15.1); White Blood Count 8.3 10^3/uL (4.0-10.0)
[2022-08-29 23:48] LABS: INR 1.12 (0.8-1.2); Partial Thromboplastin Time 30.5 SECONDS (23.9-36.7)
[2022-08-29] MEDS: sodium chloride 0.9% 500 ML IV (23:50)
[2022-08-29] MEDS: metoprolol tartrate 1 mg/1 mL SDV 5 mL 5 MG IVP (23:50)
[2022-08-30 00:03] LABS: Alanine Aminotransferase 19 U/L (0-41); Albumin Level 3.9 g/dL (3.5-5.2); Alkaline Phosphatase 28 U/L (40-130); Anion Gap 16.7 (5-19); Aspartate Amino Transferase 28 U/L (0-40); Blood Urea Nitrogen 15 mg/dL (8-23); Calcium 8.6 mg/dL (8.5-10.5); Carbon Dioxide 25 mmol/L (22-29); Chloride 98 mmol/L (98-107); Creatinine Clr Calc Pharmacy 66.8313; Globulin 2.7 g/dL (1.3-4.6); Glucose 115 mg/dL (65-115); NT Pro B Type Natriuretic Pept 712 pg/mL (0-125); Osmolality Calculated 284 mOsm/kg (285-295); Potassium 3.7 mmol/L (3.5-5.1); Sodium 136 mmol/L (136-145); Thyroid Stimulating Hormone 6.79 uIU/mL (0.27-4.20); Total Protein 6.6 g/dL (6.6-8.7)
[2022-08-30 00:06] LABS: Alcohol Level < 10 mg/dL (0-10)
--- NOTE | 2022-08-30 00:06 | W.ED.SEIZURE ---
HPI - Seizure General: Chief Complaint: Seizure Stated Complaint: SEIZURE Time Seen by Provider: 08/29/22 23:19 Source: patient History of Present Illness: HPI Narrative: 71-year-old gentleman with a history of seizure disorder. He presents after a seizure tonight. Friends that the patient stayed with called 911, after evidently finding him in the floor convulsing. He was noted by EMS to have a heart rate from 80-180. It looked irregular. He was given 15 mg of diltiazem in route with significant reduction in heart rate, and resolution of ST depression that was previously present on the monitor. The patient was not complaining of chest pain. He was mildly confused at first, but his mentation cleared appropriately. He presents with no pain, awake, alert, smiling and talking. He does have a history of seizure disorder. He believes he may have skipped tonight's dose inadvertently. He is also not sure if he took his metoprolol. complaint: seizure Onset (ago): minute(s) Description of Episode: loss of consciousness and tonic-clonic movement Witnessed: Yes - by Bystander Trauma: No Seizure History: Yes Place: Home Possible Precipitating Event: other Associated symptoms: Deny chest pain, chills, confusion or fever(s) Review of Systems Const: Denies: fever(s), chills or body aches Eyes: Denies: change in vision ENMT: Denies: throat pain Card: Denies: chest pain or palpitations Resp: Denies: dyspnea, productive cough, non-productive cough or wheezing GI: Denies: abdominal pain, nausea, vomiting, diarrhea or hematochezia Musc: Denies: neck pain or back pain Skin/Breast: Denies: rash Neuro: Denies: headache(s), weakness in extremities, dizziness or confusion PFSH ED PFSH: Medical History Atrial fibrillation Coronary artery disease Mixed hyperlipidemia Pneumonia Presence of stent in LAD coronary artery Seizure disorder Subdural hemorrhage Surgical History History of appendectomy Hx of tonsillectomy Family History Other Cancer Social History (Reviewed 08/30/22 @ 00:09 by VIDA Padilla Smoking and tobacco status: never smoked Physical Exam Const: COMMON NORMALS: no acute distress GENERAL APPEARANCE: cooperative; not ill appearing and not frail appearing HENMT: COMMON NORMALS: normocephalic, atraumatic and Normal external nose present HEAD & SCALP: normocephalic and atraumatic FACE & SINUS: normal facial exam and face symmetric NOSE: Normal external nose present MOUTH: tongue normal and other (Abrasions to lip) Eye: COMMON NORMALS: Equal, round and reactive pupils present and EOMs intact bilaterally PUPIL: Yes Equal, round and reactive pupils present Neck/C-Spine: GENERAL: Yes trachea midline Chest: CHEST: Yes Symmetrical chest wall rise Resp: COMMON NORMALS: normal respiratory effort, No retractions, No use of accessory muscles and clear to auscultation bilaterally AUSCULTATION: clear to auscultation bilaterally Cardio: COMMON NORMALS: regular rate and regular rhythm RATE: regular rate RHYTHM: regular rhythm GI: COMMON NORMALS: Normal to inspection, nondistended, normoactive bowel sounds present Extremity: COMMON NORMALS: no pedal edema Neuro: SRAVAN COMA SCALE: document GCS findings Maynard coma scale eye opening: Spontaneous Sravan coma scale verbal response: Orientated Maynard coma scale motor response: Obey commands Sravan coma scale total score: 15 SENSORY EXAM: Yes extremities (intact) Psych: COMMON NORMALS: speech normal SPEECH: Yes normal speech Skin: COMMON NORMALS: no rashes or lesions noted GENERAL SKIN EXAM: no rashes or lesions noted Course Vital Signs: Vital signs: Vital Signs Temperature 98.6 F 08/29/22 23:17 Pulse Rate 75 08/30/22 01:20 Respiratory Rate 17 08/30/22 01:20 Blood Pressure 156/85 08/30/22 01:20 Pulse Oximetry 99 08/30/22 01:20 Oxygen Delivery Me thod Room Air 08/30/22 01:20 MDM - Seizure MDM Narrative Medical decision making narrative: 71-year-old gentleman with a history of seizure disorder presenting after a seizure. He has not had a seizure in 3 years. He may or may not have missed his Keppra dose tonight. He also had an episode of rapid atrial fibrillation, that is now resolved. He was infused with 500 mg of IV Keppra here, as well as given 5 mg of IV metoprolol for the increased heart rate. His heart rate is 75. Blood pressure 156/85. Saturations are 100%. Chest x-ray shows mild bibasilar atelectasis. Head CT is negative for acute change.EKG shows sinus bradycardia with incomplete right bundle branch block after 5 mg of metoprolol was administered. The patient never had any chest pain. His ethyl alcohol is less than 10. INR is 1.1. Electrolytes are normal. No further episodes of seizure here. No episodes of chest pain. He will be allowed discharge home. Lab Data 08/29/22 23:25 08/29/22: Labs: Radiology Impressions Chest X-Ray 08/29/22: IMPRESSION: 1. Mild bibasilar opacities may represent atelectasis, inflammation, or infection. Trace layering pleural effusions can not be excluded. 2. Otherwise, no significant change since prior. Head CT 08/29/22: IMPRESSION: No evidence of acute intracranial hemorrhage, mass effect, or midline shift. Laboratory Results WBC 8.3 10^3/uL (4.0-10.0) 08/29/22: RBC 4.46 10^6/uL (4.1-5.3) 08/29/22: Hgb 13.3 g/dL (11.7-16.6) 08/29/22: Hct 39.8 % (42.0-52.0) L 08/29/22: MCV 89.2 fl (80-94) 08/29/22: MCH 29.8 pg (28.0-34.0) 08/29/22: MCHC 33.4 g/dL (30.0-36.0) 08/29/22: RDW 13.8 % (12.1-15.1) 08/29/22: Plt Count 194 10^3/cmm (130-400) 08/29/22: MPV 9.7 fL (7.4-10.4) 08/29/22: Neut % (Auto) 74.4 % 08/29/22: Lymph % (Auto) 14.9 % 08/29/22: [place] % (Auto) 6.0 % 06/03/23 23:25 Eos % (Auto) 3.7 % 08/29/22 23:25 Baso % (Auto) 0.6 % 08/29/22 23: Neut # (Auto) 6.15 10^3/uL (1.8-7.7) 08/29/22 23:25 Lymph # (Auto) 1.2 10^3/uL (0.8-4.8) 08/29/22 23:25 [place] # (Auto) 0.5 10^3/uL (0.2-0.9) 08/29/22 23:25 Eos # (Auto) 0.3 10^3/uL (0.0-0.8) 08/29/22: Baso # (Auto) 0.1 10^3/uL (0.0-0.1) 08/29/22 23: Nucleated RBC % (auto) 0 % 08/29/22: Nucleated RBCs # 0.0 /100WBC 08/29/22 23: PT 14.80 SECONDS (12.1-14.9) 08/29/22 23:25 INR 1.12 (0.8-1.2) 08/29/22 23: APTT 30.5 SECONDS (23.9-36.7) 08/29/22 23:25 Sodium 136 mmol/L (136-145) 08/29/22 23:25 Potassium 3.7 mmol/L (3.5-5.1) 08/29/22 23:25 Chloride 98 mmol/L (98-107) 08/29/22 23:25 Carbon Dioxide 25 mmol/L (22-29) 08/29/22 23:25 Anion Gap 16.7 (5-19) 08/29/22 23:25 BUN 15 mg/dL (8-23) 08/29/22 23:25 Creatinine 1.1 mg/dL (0.7-1.2) 08/29/22 23:25 GFR Calculation Not Reportable 08/29/22 23:25 Glucose 115 mg/dL (65-115) 08/29/22 23:25 Calculated Osmolality 284 mOsm/kg (285-295) L 08/29/22 23:25 Calcium 8.6 mg/dL (8.5-10.5) 08/29/22 23:25 Total Bilirubin 1.0 mg/dL (0.15-1.2) 08/29/22 23:25 AST 28 U/L (0-40) 08/29/22 23:25 ALT 19 U/L (0-41) 08/29/22 23:25 Alkaline Phosphatase 28 U/L (40-130) L 08/29/22 23:25 NT-Pro-B Natriuret Pep 712 pg/mL (0-125) H 08/29/22 23:25 Total Protein 6.6 g/dL (6.6-8.7) 08/29/22 23:25 Albumin 3.9 g/dL (3.5-5.2) 08/29/22 23:25 Globulin 2.7 g/dL (1.3-4.6) 08/29/22 23:25 TSH 6.79 uIU/mL (0.27-4.20) H 08/29/22 23:25 Urine Color Yellow (Yellow) 08/30/22 01:17 Urine Appearance Hazy (CLEAR) A 08/30/22 01:17 Urine pH 6.5 (5-7) 08/30/22 01:17 Ur Specific [place] 1.010 (1.005-1.030) 08/30/22 01:17 Urine Protein Neg (Negative) 08/30/22 01:17 Urine Glucose (UA) Norm (Normal) 08/30/22 01:17 Urine Ketones Negative (Negative) 08/30/22 01:17 Urine Blood Neg (Negative) 08/30/22 01:17 Urine Nitrate Negative (Negative) 08/30/22 01:17 Urine Bilirubin Neg (Negative) 08/30/22 01:17 Urine Urobilinogen 1 mg/dL (Negative) H 08/30/22 01:17 Ur Leukocyte Esterase Negative (Negative) 08/30/22 01:17 Urine RBC 5-10 /hpf (0-2) H 08/30/22 01:17 Urine WBC 5-10 /hpf (0-5) H 08/30/22 01:17 Ur Squamous Epith Cells 0-4 /hpf (0-5) H 08/30/22 01:17 Amorphous Sediment Not Reportable 08/30/22 01:17 Urine Bacteria 1+ /hpf (NONE) H 08/30/22 01:17 Urine Sperm 3+ /hpf 08/30/22 01:17 Ethyl Alcohol < 10 mg/dL (0-10) 08/29/22 23:25 Discharge Plan Discharge Patient Disposition: Home Clinical Impression: Epileptic seizure, Atrial fibrillation with rapid ventricular response Condition: Stable Prescriptions: No Action clopidogrel 75 mg tablet 75 mg PO DAILY atorvastatin 40 mg tablet 40 mg PO BEDTIME Qty: 90 3RF itraconazole 100 mg capsule See Rx Instructions PO DAILY Qty: 14 2RF Rx Instructions: Take 2 caps PO QD for 1 wk out of month for 3 months total. Take 1/2 tab of atorvastatin QD when taking itraconazole. Take with meal/food metoprolol tartrate 25 mg tablet See Rx Instructions PO BID Rx Instructions: Patient taking 1/4 tab orally twice a day; levetiracetam 750 mg tablet See Rx Instructions .ROUTE .COMPLEX Qty: 60 0RF Dose Instruction: Take 1 tablet by mouth twice daily Rx Instructions: Take 1 tablet by mouth twice daily Discharge Orders: Discharge ED (Routine); Ordered 08/30/22 Ordered By: Yo Suggs Referrals: Matias Echevarria MD [Primary Care Provider] - 1-3 days Patient Instructions: A-fib (Atrial Fibrillation) (ED), Recurrent Seizures in Adults (ED) Activity Restrictions/Additional Instructions: Return for repeated episodes of seizure, mental status changes, chest discomfort, shortness of breath, fever, any other concerning symptoms. Take your medications as directed. See your doctor later this week. Coding Level of Care Code ED Pipe And Tank Fabricator for Phylicia Sutherland
[2022-08-30 01:20] VITALS: BP 156/85; PULSE 75; RESP 17; O2SAT 99
[2022-08-30 01:34] LABS: Add Urine Microscopic? YES; Bilirubin Urine Neg (Negative); Blood Urine Neg (Negative); Glucose Urine UA Norm (Normal); Ketones Urine Negative (Negative); Leukocyte Esterase Urine Negative (Negative); Nitrate Urine Negative (Negative); Protein Urine Neg (Negative); Urine Appearance Hazy (CLEAR); Urine Color Yellow (Yellow); Urobilinogen Urine 1 mg/dL (Negative); pH Urine 6.5 (5-7)
[2022-08-30 01:35] LABS: Bacteria Urine 1+ /hpf; Sperm Urine 3+ /hpf; Squamous Epithelial Cell Urine 0-4 /hpf (0-5)
== END 2022-08-30 01:49 | disposition home or self-care (01) ==
PROVIDERS: Emergency Provider Emergency Medicine; PCP Family Medicine
DX: G40.909 Epilepsy, unspecified, not intractable, without status epilepticus (principal); I48.91 Unspecified atrial fibrillation; R00.1 Bradycardia, unspecified; I45.10 Unspecified right bundle-branch block
CPT/HCPCS: 70450; 71045; 80053; 80307; 81001; 83880; 84443; 85025; 85610; 85730; 93005; 96365; 96375; 99285; J1953; J3490; J7040

== ENCOUNTER 2022-12-05 00:25 | Emergency (ER) | payer MEDICAID, SELFPAY ==
[2022-12-05] VITALS (7 sets, daily range): BP systolic 134–147; BP diastolic 80–86; PULSE 61–75; RESP 16–17; TEMP 36.6; O2SAT 94–98; BMI 23.6
--- NOTE | 2022-12-05 01:09 | ECG_ITS ---
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 Measurements Intervals [place] Rate: 66 P: 57 MD: 181 QRS: 46 QRSD: 122 T: 46 QT: 372 QTc: 390 Interpretive Statements SINUS RHYTHM POSSIBLE RIGHT VENTRICULAR CONDUCTION DELAY [RSR (QR) IN V1/V2] Compared to ECG 08/30/2022 00:14:09 Sinus bradycardia no longer present Incomplete right bundle-branch block no longer present Electronically Signed On 12-05-2022 13:58:26 CDT by Gil Valdes M.D. [id number]
--- NOTE | 2022-12-05 01:09 | XRR_ITS ---
PROCEDURE INFORMATION: Exam: XR Chest Exam date and time: 12/05/2022 1:17 AM Age: 72 years old Clinical indication: Other: Seizure activity TECHNIQUE: Imaging protocol: Radiologic exam of the chest. Views: 1 view. COMPARISON: CR (CHEST, ) 08/29/2022 11:36 PM FINDINGS: Lungs: Unremarkable. No consolidation. Pleural spaces: Unremarkable. No pleural effusion. No pneumothorax. Heart/Mediastinum: Unremarkable. No cardiomegaly. Bones/joints: Unremarkable. XR/XR chest 1V portable [id number] IMPRESSION: No acute findings.
[2022-12-05 01:18] LABS: Basophils % 0.3 %; Eosinophils # 0.3 10^3/uL (0.0-0.8); Eosinophils % 2.7 %; Hematocrit 40.7 % (37-53); Lymphocytes # 1.3 10^3/uL (0.8-4.8); Lymphocytes % 12.4 %; Mean Corpuscular HGB Conc 34.2 g/dL (30-55); Mean Corpuscular Hemoglobin 30.5 pg (27-33); Mean Corpuscular Volume 89.3 fl (82-101); Mean Platelet Volume 9.3 fL (7.4-10.4); Monocytes # 0.9 10^3/uL (0.2-0.9); Monocytes % 7.9 %; Neutrophils # 8.25 10^3/uL (1.8-7.7); Neutrophils % 76.3 %; Nucleated Red Blood Cells % 0 %; Platelet Count 222 10^3/cmm (157-399); Red Blood Count 4.56 10^6/uL (3.85-5.65); Red Cell Distribution Width 13.5 % (12.1-15.1)
[2022-12-05 01:38] LABS: Alanine Aminotransferase 18 U/L (0-41); Albumin Level 4.1 g/dL (3.5-5.2); Alkaline Phosphatase 31 U/L (40-130); Anion Gap 12.9 (5-19); Aspartate Amino Transferase 22 U/L (0-40); Blood Urea Nitrogen 13 mg/dL (8-23); C Reactive Protein 59.5 mg/L (0.0-4.9); Carbon Dioxide 29 mmol/L (22-29); Chloride 94 mmol/L (98-107); Creatine Phosphokinase 122 U/L (39-308); Globulin 3.4 g/dL (1.3-4.6); Glucose 108 mg/dL (65-115); Magnesium 2.2 mg/dL (1.7-2.3); Osmolality Calculated 275 mOsm/kg (285-295); Phosphorus 2.3 mg/dL (2.5-4.5); Potassium 3.9 mmol/L (3.5-5.1); Sodium 132 mmol/L (136-145); Total Bilirubin 0.8 mg/dL (0.15-1.2); Total Protein 7.5 g/dL (6.6-8.7)
[2022-12-05 01:39] LABS: Alcohol Level < 10 mg/dL (0-10)
[2022-12-05 02:11] LABS: Add Urine Microscopic? YES; Bilirubin Urine Neg (Negative); Blood Urine Trace (Negative); Glucose Urine UA Norm (Normal); Ketones Urine Negative (Negative); Leukocyte Esterase Urine Negative (Negative); Nitrate Urine Negative (Negative); Protein Urine Trace (Negative); Urine Appearance Clear (CLEAR); Urine Color Yellow (Yellow); Urobilinogen Urine 1 mg/dL (Negative); pH Urine 6 (5-7)
[2022-12-05 02:12] LABS: Add Urine Culture? No; Sperm Urine 3+ /hpf; Squamous Epithelial Cell Urine 0-4 /hpf (0-5); WBC Urine 0-4 /hpf (0-5)
--- NOTE | 2022-12-05 02:24 | W.ED.SEIZURE ---
HPI - Seizure General: Chief Complaint: Seizure Stated Complaint: SEIZURE Time Seen by Provider: 12/05/22 00:33 Source: patient History of Present Illness: HPI Narrative: 72-year-old male with a history of seizure disorder. He had a seizure at home tonight. This concerned his family as his mental status did not seem to come back as quickly as usual. He presents here by EMS. He is back to baseline essentially on my examination. He has no significant pain. He did bite his lip during his seizure episode. complaint: seizure Onset (ago): minute(s) Seizure History: Yes Place: Home Associated symptoms: Deny chest pain or fever(s) Review of Systems Const: Denies: fever(s) Eyes: Denies: change in vision ENMT: Denies: throat pain Card: Denies: chest pain or palpitations Resp: Denies: dyspnea or productive cough GI: Denies: abdominal pain or vomiting Neuro: Reports: seizure-like activity; Denies: headache(s) or numbness in extremities PFSH ED PFSH: Medical History Atrial fibrillation Coronary artery disease Mixed hyperlipidemia Pneumonia Presence of stent in LAD coronary artery Seizure disorder Subdural hemorrhage Surgical History History of appendectomy Hx of tonsillectomy Family History Other Cancer Social History Smoking and tobacco status: never smoked Physical Exam Const: COMMON NORMALS: no acute distress GENERAL APPEARANCE: cooperative and frail appearing (Mildly); not ill appearing HENMT: COMMON NORMALS: normocephalic, atraumatic and Normal external nose present HEAD & SCALP: normocephalic and atraumatic FACE & SINUS: normal facial exam and face symmetric NOSE: Normal external nose present Eye: COMMON NORMALS: Equal, round and reactive pupils present and EOMs intact bilaterally PUPIL: Yes Equal, round and reactive pupils present Neck/C-Spine: GENERAL: Yes trachea midline Chest: CHEST: Yes Symmetrical chest wall rise Resp: COMMON NORMALS: normal respiratory effort, No retractions, No use of accessory muscles and clear to auscultation bilaterally AUSCULTATION: clear to auscultation bilaterally Cardio: COMMON NORMALS: regular rate and regular rhythm RATE: regular rate RHYTHM: regular rhythm GI: COMMON NORMALS: Normal to inspection, nondistended, normoactive bowel sounds present Extremity: COMMON NORMALS: no pedal edema Neuro: SRAVAN COMA SCALE: document GCS findings Sravan coma scale eye opening: Spontaneous [place] coma scale verbal response: Orientated Sravan coma scale motor response: Obey commands Sravan coma scale total score: 15 SENSORY EXAM: Yes extremities (intact) Psych: COMMON NORMALS: speech normal SPEECH: Yes normal speech Skin: COMMON NORMALS: no rashes or lesions noted GENERAL SKIN EXAM: no rashes or lesions noted Course Vital Signs: Vital signs: Vital Signs Temperature 97.8 F 12/05/22 00:26 Pulse Rate 74 12/05/22 00:34 Respiratory Rate 16 12/05/22 00:26 Blood Pressure 142/86 12/05/22 00:34 Pulse Oximetry 95 12/05/22 00:34 Oxygen Delivery Me thod Room Air 12/05/22 00:34 MDM - Seizure MDM Narrative Medical decision making narrative: The patient is back at baseline. His vitals are normal.CBC and BMP are remarkable for a mildly decreased sodium level of 132. Urinalysis is negative. Ethanol is less than 10. CRP is mildly high at 59. Other laboratory is benign. Chest x-ray is negative. Repeat CT of the head is not performed, as this patient has known seizure disorder and the seizure is not unlike his prior seizures. Lab Data 12/05/22 00:47 12/05/22 00:47 Labs: Radiology Impressions Chest X-Ray 12/05/22 01:09 IMPRESSION: No acute findings. Laboratory Results WBC 10.80 10^3/uL (3.29-11.43) 12/05/22 00:47 RBC 4.56 10^6/uL (3.85-5.65) 12/05/22 00:47 Hgb 13.90 g/dL (11.27-16.99) 12/05/22 00:47 Hct 40.7 % (37-53) 12/05/22 00:47 MCV 89.3 fl (82-101) 12/05/22 00:47 MCH 30.5 pg (27-33) 12/05/22 00:47 MCHC 34.2 g/dL (30-55) 12/05/22 00:47 RDW 13.5 % (12.1-15.1) 12/05/22 00:47 Plt Count 222 10^3/cmm (157-399) 12/05/22 00:47 MPV 9.3 fL (7.4-10.4) 12/05/22 00:47 Neut % (Auto) 76.3 % 12/05/22 00:47 Lymph % (Auto) 12.4 % 12/05/22 00:47 [place] % (Auto) 7.9 % 12/05/22 00:47 Eos % (Auto) 2.7 % 12/05/22 00:47 Baso % (Auto) 0.3 % 12/05/22 00:47 Neut # (Auto) 8.25 10^3/uL (1.8-7.7) H 12/05/22 00:47 Lymph # (Auto) 1.3 10^3/uL (0.8-4.8) 12/05/22 00:47 [place] # (Auto) 0.9 10^3/uL (0.2-0.9) 12/05/22 00:47 Eos # (Auto) 0.3 10^3/uL (0.0-0.8) 12/05/22 00:47 Baso # (Auto) 0.0 10^3/uL (0.0-0.1) 12/05/22 00:47 Nucleated RBC % (auto) 0 % 12/05/22 00:47 Nucleated RBCs # 0.0 /100WBC 12/05/22 00:47 Sodium 132 mmol/L (136-145) L 12/05/22 00:47 Potassium 3.9 mmol/L (3.5-5.1) 12/05/22 00:47 Chloride 94 mmol/L (98-107) L 12/05/22 00:47 Carbon Dioxide 29 mmol/L (22-29) 12/05/22 00:47 Anion Gap 12.9 (5-19) 12/05/22 00:47 BUN 13 mg/dL (8-23) 12/05/22 00:47 Creatinine 1.1 mg/dL (0.7-1.2) 12/05/22 00:47 GFR Calculation Not Reportable 12/05/22 00:47 Glucose 108 mg/dL (65-115) 12/05/22 00:47 Calculated Osmolality 275 mOsm/kg (285-295) L 12/05/22 00:47 Calcium 9.0 mg/dL (8.5-10.5) 12/05/22 00:47 Phosphorus 2.3 mg/dL (2.5-4.5) L 12/05/22 00:47 Magnesium 2.2 mg/dL (1.7-2.3) 12/05/22 00:47 Total Bilirubin 0.8 mg/dL (0.15-1.2) 12/05/22 00:47 AST 22 U/L (0-40) 12/05/22 00:47 ALT 18 U/L (0-41) 12/05/22 00:47 Alkaline Phosphatase 31 U/L (40-130) L 12/05/22 00:47 Creatine Kinase 122 U/L (39-308) 12/05/22 00:47 C-Reactive Protein 59.5 mg/L (0.0-4.9) H 12/05/22 00:47 Total Protein 7.5 g/dL (6.6-8.7) 12/05/22 00:47 Albumin 4.1 g/dL (3.5-5.2) 12/05/22 00:47 Globulin 3.4 g/dL (1.3-4.6) 12/05/22 00:47 Urine Color Yellow (Yellow) 12/05/22 01:54 Urine Appearance Clear (CLEAR) 12/05/22 01:54 Urine pH 6 (5-7) 12/05/22 01:54 Ur Specific [place] 1.010 (1.005-1.030) 12/05/22 01:54 Urine Protein Trace (Negative) 12/05/22 01:54 Urine Glucose (UA) Norm (Normal) 12/05/22 01:54 Urine Ketones Negative (Negative) 12/05/22 01:54 Urine Blood Trace (Negative) H 12/05/22 01:54 Urine Nitrate Negative (Negative) 12/05/22 01:54 Urine Bilirubin Neg (Negative) 12/05/22 01:54 Urine Urobilinogen 1 mg/dL (Negative) H 12/05/22 01:54 Ur Leukocyte Esterase Negative (Negative) 12/05/22 01:54 Urine RBC 5-10 /hpf (0-2) H 12/05/22 01:54 Urine WBC 0-4 /hpf (0-5) H 12/05/22 01:54 Ur Squamous Epith Cells 0-4 /hpf (0-5) H 12/05/22 01:54 Amorphous Sediment Not Reportable 12/05/22 01:54 Urine Bacteria None /hpf (NONE) 12/05/22 01:54 Urine Sperm 3+ /hpf 12/05/22 01:54 Ethyl Alcohol < 10 mg/dL (0-10) 12/05/22 00:47 Discharge Plan Discharge Patient Disposition: Home Clinical Impression: Seizure disorder Condition: Stable Prescriptions: No Action atorvastatin 40 mg tablet 40 mg PO BEDTIME Qty: 90 3RF doxylamine succinate 25 mg tablet See Rx Instructions .Route .COMPLEX PRN (Reason: insomnia) Qty: 30 6RF Rx Instructions: Take 1 tab by mouth each evening as needed for insomnia permethrin 5 % cream 1 applic topical Q14D Qty: 60 1RF Rx Instructions: Apply head to toe and avoid mouth and eyes and keep on for 12 hours then shower. Apply second treatment 14 days after first. itraconazole 100 mg capsule See Rx Instructions PO DAILY Qty: 14 2RF Rx Instructions: Take 2 caps PO QD for 1 wk out of month for 3 months total. Take 1/2 tab of atorvastatin QD when taking itraconazole. Take with meal/food metoprolol tartrate 25 mg tablet See Rx Instructions PO BID Rx Instructions: Patient taking 1/4 tab orally twice a day; levetiracetam 1,000 mg tablet 1,000 mg PO BID Qty: 60 6RF clopidogrel 75 mg tablet 75 mg PO DAILY Qty: 90 3RF Discharge Orders: Discharge ED (Routine); Ordered 12/05/22 Ordered By: Yo Suggs Referrals: Matias Echevarria MD [Primary Care Provider] - Patient Instructions: Recurrent Seizures in Adults (ED) Coding Level of Care Code ED Lime Filter Operator for Phylicia Sutherland
[2022-12-07 11:43] LABS: Levetiracetam Immunoassy 39.3 mcg/mL (6.0-46.0)
== END 2022-12-05 03:00 | disposition home or self-care (01) ==
PROVIDERS: Emergency Provider Emergency Medicine; PCP Family Medicine
DX: G40.909 Epilepsy, unspecified, not intractable, without status epilepticus (principal); Z79.02 Long term (current) use of antithrombotics/antiplatelets; I25.10 Atherosclerotic heart disease of native coronary artery without angina pectoris; E78.2 Mixed hyperlipidemia
CPT/HCPCS: 71045; 80053; 80177; 80307; 81001; 82550; 83735; 84100; 85025; 86140; 93005; 99285

== ENCOUNTER → 2023-02-11 10:47 | Outpatient (BNVA) | payer MEDICAID, SELFPAY | PROVIDERS: PCP Family Medicine; Visit Provider Psychiatry & Neurology Neurology | DX: G40.909 Epilepsy, unspecified, not intractable, without status epilepticus (principal); R79.89 Other specified abnormal findings of blood chemistry | CPT/HCPCS: 99203 ==

== ENCOUNTER 2023-03-17 15:34 | Outpatient (CLI) | payer MEDICAID, SELFPAY ==
--- NOTE | 2023-03-17 16:00 | MR_ITS ---
WS: [id number] MRI BRAIN WITH AND WITHOUT CONTRAST HISTORY: G40.909 - Epilepsy, unspecified, not intractable, without... COMPARISON: None available. TECHNIQUE: Multiplanar imaging performed through the brain with MultiHance 15 ml's IV. Motion artifact on numerous sequences. No acute infarcts are seen. Moreno-white matter differentiation is well preserved. Mild volume loss and atrophy is symmetric. Mild small vessel ischemic disease. Temporal lobe evaluation is significantly compromised by motion and positioning. There is very slight volume loss. Ventricles and extra-axial spaces are normal. Clivus and pituitary gland are normal. Visualized posterior fossa and brainstem are also normal. Postcontrast images are negative for masses or vascular malformations. Postcontrast imaging significa ntly compromised by motion. Paranasal sinuses: Moderate mucoperiosteal thickening in the LEFT maxillary sinus extending into the ethmoid air cells. Mastoid air cells: Normal. Calvarium and scalp: Normal. IMPRESSION: 1. This examination is significantly compromised by positioning and motion artifact. 2. No acute infarct or hemorrhage. 3. Mild volume loss and atrophy. No enhancing mass is identified but the postcontrast imaging is sig nificantly compromised.
[2023-03-17] MEDS: gadobenate dimeglumine 20 mL vial IV (16:24)
== END 2023-03-17 15:35 | disposition home or self-care (01) ==
PROVIDERS: PCP Family Medicine; Visit Provider Psychiatry & Neurology Neurology
DX: G40.909 Epilepsy, unspecified, not intractable, without status epilepticus (principal); G31.9 Degenerative disease of nervous system, unspecified
CPT/HCPCS: 70553; A9577

== ENCOUNTER → 2023-04-23 10:43 | Outpatient (BNVA) | payer MEDICAID, SELFPAY | PROVIDERS: PCP Family Medicine; Referring Provider Psychiatry & Neurology Neurology; Visit Provider Internal Medicine | DX: E03.9 Hypothyroidism, unspecified (principal); R79.89 Other specified abnormal findings of blood chemistry; I48.91 Unspecified atrial fibrillation | CPT/HCPCS: 36415; 84439; 84443; 86376; 86800; 99204 ==

== ENCOUNTER → 2023-05-20 14:34 | Outpatient (BNVA) | payer MEDICAID, SELFPAY | PROVIDERS: PCP Family Medicine; Visit Provider Psychiatry & Neurology Neurology | DX: G40.919 Epilepsy, unspecified, intractable, without status epilepticus (principal) | CPT/HCPCS: 95813 ==

== ENCOUNTER → 2023-06-09 13:09 | Outpatient (BNVA) | payer MEDICAID, SELFPAY | PROVIDERS: PCP Family Medicine; Visit Provider Psychiatry & Neurology Neurology | DX: G40.919 Epilepsy, unspecified, intractable, without status epilepticus (principal); R94.01 Abnormal electroencephalogram [EEG] | CPT/HCPCS: 99212 ==

== ENCOUNTER → 2023-07-02 16:28 | Outpatient (BNVA) | payer MEDICAID, SELFPAY | PROVIDERS: PCP Family Medicine; Referring Provider Psychiatry & Neurology Neurology; Visit Provider Psychiatry & Neurology Neurology | DX: G40.909 Epilepsy, unspecified, not intractable, without status epilepticus (principal); G40.919 Epilepsy, unspecified, intractable, without status epilepticus; R94.01 Abnormal electroencephalogram [EEG] | CPT/HCPCS: 95812; 95816 ==

== ENCOUNTER 2024-08-13 09:42 | Emergency (ER) | payer SELFPAY ==
--- NOTE | 2024-08-13 09:44 | XRR_ITS ---
PROCEDURE INFORMATION: Exam: XR Chest Exam date and time: 08/13/2024 10:15 AM Age: 73 years old Clinical indication: Shortness of breath; Additional info: SOB TECHNIQUE: Imaging protocol: Radiologic exam of the chest. Views: 1 view. COMPARISON: CR XR chest 1V portable [id number] 12/05/2022 1:17 AM FINDINGS: Lungs: Consolidation at the right lung base with small to moderate right pleural effusion. Mild left basilar opacity. Pleural spaces: See Lungs finding. Heart/Mediastinum: Unremarkable. No cardiomegaly. Bones/joints: Unremarkable. XR/XR chest 1V portable [id number] IMPRESSION: Consolidation at the right lung base with right pleural effusion.
[2024-08-13 09:50] VITALS: BP 133/89; PULSE 99; RESP 17; TEMP 36.4; O2SAT 100; BMI 25.7
[2024-08-13] MEDS: sodium chloride 0.9% 1,000 ML 999 ML IV (10:15)
[2024-08-13] MEDS: dilTIAZem 5 mg/mL SDV 5 mL 15 MG IVP (10:16)
--- NOTE | 2024-08-13 10:17 | ED_ITS ---
HPI - SOB/Dyspnea 2 General: Chief Complaint: Shortness of Breath/Dyspnea Stated Complaint: sob Time Seen by Provider: 08/13/24 10:04 Source: patient Mode of arrival: ambulatory Limitations: no limitations History of Present Illness: HPI Narrative: 73-year-old male states that he has a hi story of A-fib he states the last 3 weeks he has been having palpitations with increased heart rate with his A-fib also been having some shortness of breath with it. He states seem to be worse exertion he denies any cough denies any fever denies any chest pain he is in A- fib with RVR here with heart rates in the 130s currently Associated symptoms: Reports palpitations; Deny abdominal pain, chest pain, fever(s), nausea or vomiting Related Data Previous Rx's ?Medication ?Instructions ?Recorded atorvastatin 40 mg tablet 40 mg PO BEDTIME #90 tabs clopidogrel 75 mg tablet 75 mg PO DAILY #90 tabs 05/27 levetiracetam 1,000 mg tablet 1,000 mg PO BID #60 tabs 06/05/24 metoprolol tartrate 25 mg tablet See Rx Instructions P O BID #90 tabs 06/05/24 doxycycline hyclate 100 mg tablet 100 mg PO BID 7 days #14 tabs 08/13/24 furosemide 40 mg tablet (Lasix) 40 mg PO QAM #30 tabs 08/13/24 Allergies Allergy/AdvReac Type Severity Reaction Status Date / Time No Known Allergies Allergy Verified 11/18/23 07:53 Review of Systems 2 Const: Denies: fever(s), chills, body aches or change in appetite ENMT: Denies: throat pain or dental pain Card: Reports: palpitations and irregular heart rhythm; Denies: chest pain Resp: Reports: dyspnea GI: Denies: abdominal pain, nausea, vomiting or diarrhea : Denies: dysuria Musc: Denies: neck pain or back pain Skin/Breast: Denies: rash Neuro: Denies: headache(s) PFSH ED 2 PFSH: Medical History Subdural hemorrhage Presence of stent in LAD coronary artery Coronary artery disease Pneumonia Atrial fibrillation Mixed hyperlipidemia Seizure disorder Surgical History Hx of tonsillectomy History of appendectomy Family History Mother , AT AGE 91 Cancer Father , AT AGE 83 Pneumonia Social History Smoking and tobacco/nicotine status: never used tobacco/nicotine Alcohol intake: never Substance/Drug Use: never Physical Exam 2 Const: COMMON NORMALS: no acute distress, patient oriented x3 and healthy appearing HENMT: COMMON NORMALS: normocephalic and atraumatic HEAD & SCALP: n ormocephalic and atraumatic Eye: COMMON NORMALS: conjunctivae normal CONJUNCTIVA: Yes conjunctivae normal Neck/C-Spine: COMMON NORMALS: full ROM and supple Chest: COMMONS NORMALS: normal inspection of the chest Resp: COMMON NORMALS: normal respiratory effort, No retractions, No use of accessory muscles and clear to auscultation bilaterally AUSCULTATION: clear to auscultation bilaterally Cardio: COMMON NORMALS: No murmurs present (Cardio) RATE: tachycardic R HYTHM: abnormal rhythm irregularly irregular GI: COMMON NORMALS: Normal to inspection, nondistended, normoactive bowel sounds present, Soft to palpation, non-tender and no masses PALPATION: Yes Soft to palpation Extremity: COMMON NORMALS: normal to inspection and full ROM Neuro: COMMON NORMALS: patient oriented x3, moves all extremities and no focal motor deficits Psych: COMMON NORMALS: mental status grossly normal, Normal thought process present and cooperative THOUGHT PROCESS: Normal thought process present Skin: COMMON NORMALS: no rashes or lesions noted and no wounds GENERAL SKIN EXAM: no rashes or lesions noted Course 2 Vital Signs: Vital signs: Vital Signs Temperature 97.5 F L 08/13/24 09:50 Pulse Rate 88 08/13/24 13:59 Respiratory Rate 17 08/13/24 09:50 Blood Pressure 123/103 08/13/24 13:59 Pulse Oximetry 93 08/13/24 13:59 Oxygen Delivery Me thod Room Air 08/13/24 12:40 MDM - SOB/Dyspnea Medical Decision Making Patient presents here with shortness of breath he is found to have pulmonary edema along with pneumonia. I strongly recommended admission for his x-ray and BNP findings I explained to him that he will likely need admitted 5 antibiotics IV Lasix he states that he feels much improved and he does not want to stay and wants to try oral antibiotics home at first. Will place him on doxycycline and Lasix I informed he has any worsening or changes mind about being admitted he is to return he understands agrees to plan. Medical Records I reviewed the patient's medical records. Lab Data I reviewed the patient's lab results. 08/13/24 10:13 08/13/24 10:47 Labs/Radiology: Radiology Impressions Chest X-Ray 08/13/24 09:44 IMPRESSION: Consolidation at the right lung base with right pleural effusion. Chest CTA 08/13/24 11:21 IMPRESSION: 1. No pulmonary emboli visualized. 2. Bilateral pleural effusions, cggzh-wztcutr-peeo-left. Right lower lobe compressive atelectasis/consolidation. 3. Cystic lesion in the right middle lobe. 4. Adenopathy in the right hilum and AP window which may be reactive. Laboratory Results WBC 8.52 10^3/uL (3.29-11.43) 08/13/24 10:13 RBC 4.71 10^6/uL (3.85-5.65) 08/13/24 10:13 Hgb 13.90 g/dL (11.27-16.99) 08/13/24 10:13 Hct 43.5 % (37-53) 08/13/24 10:13 MCV 92.4 fl (82-101) 08/13/24 10:13 MCH 29.5 pg (27-33) 08/13/24 10:13 MCHC 32.0 g/dL (30-55) 08/13/24 10:13 RDW 15.8 % (12.1-15.1) H 08/13/24 10:13 Plt Count 213 10^3/cmm (157-399) 08/13/24 10:13 MPV 11.2 fL (7.4-10.4) H 08/13/24 10:13 Neut % (Auto) 69.7 % 08/13/24 10:13 Lymph % (Auto) 18.5 % 08/13/24 10:13 [place] % (Auto) 6.8 % 08/13/24 10:13 Eos % (Auto) 4.0 % 08/13/24 10:13 Baso % (Auto) 0.6 % 08/13/24 10:13 Neut # (Auto) 5.94 10^3/uL (1.8-7.7) 08/13/24 10:13 Lymph # (Auto) 1.6 10^3/uL (0.8-4.8) 08/13/24 10:13 [place] # (Auto) 0.6 10^3/uL (0.2-0.9) 08/13/24 10:13 Eos # (Auto) 0.3 10^3/uL (0.0-0.8) 08/13/24 10:13 Baso # (Auto) 0.1 10^3/uL (0.0-0.1) 08/13/24 10:13 Nucleated RBC % (auto) 0 % 08/13/24 10:13 Nucleated RBCs # 0.0 /100WBC 08/13/24 10:13 D-Dimer 1.93 ug/mLFEU (0-0.59) H 08/13/24 10:47 Sodium 134 mmol/L (136-145) L 08/13/24 10:47 Potassium 4.3 mmol/L (3.5-5.1) 08/13/24 10:47 Chloride 98 mmol/L (98-107) 08/13/24 10:47 Carbon Dioxide 24 mmol/L (22-29) 08/13/24 10:47 Anion Gap 16.3 (5-19) 08/13/24 10:47 BUN 22 mg/dL (8-23) 08/13/24 10:47 Creatinine 1.4 mg/dL (0.7-1.2) H 08/13/24 10:47 GFR Calculation Not Reportable 08/13/24 10:47 Glucose 120 mg/dL (65-115) H 08/13/24 10:47 Calculated Osmolality 283 mOsm/kg (285-295) L 08/13/24 10:47 Calcium 8.6 mg/dL (8.5-10.5) 08/13/24 10:47 Total Bilirubin 1.1 mg/dL (0.15-1.2) 08/13/24 10:47 AST 43 U/L (0-40) H 08/13/24 10:47 ALT 40 U/L (0-41) 08/13/24 10:47 Alkaline Phosphatase 53 U/L (40-130) 08/13/24 10:47 NT-Pro-B Natriuret Pep 7303 pg/mL (0-125) H 08/13/24 10:47 Total Protein 7.1 g/dL (6.6-8.7) 08/13/24 10:47 Albumin 3.7 g/dL (3.5-5.2) 08/13/24 10:47 Globulin 3.4 g/dL (1.3-4.6) 08/13/24 10:47 All radiology interpretation(s) finalized by discharge EKG Data EKG 1: I personally reviewed and interpreted this EKG as follows: EKG Interpretation Date: 08/13/24 EKG interpretation time: 09:58 Interpretation: afib with rvr hr [address] elevation qrs 102 qtc 395 Discharge Plan Discharge Patient Disposition: Home Clinical Impression: Community acquired pneumonia, Atrial fibrillation, Pleural effusion Condition: Stable Prescriptions: New furosemide [Lasix] 40 mg tablet 40 mg PO QAM Qty: 30 0RF doxycycline hyclate 100 mg tablet 100 mg PO BID 7 Days Qty: 14 0RF No Action atorvastatin 40 mg tablet 40 mg PO BEDTIME Qty: 90 3RF clopidogrel 75 mg tablet 75 mg PO DAILY Qty: 90 3RF levetiracetam 1,000 mg tablet 1,000 mg PO BID Qty: 60 6RF metoprolol tartrate 25 mg tablet See Rx Instructions PO BID Qty: 90 3RF Rx Instructions: 1/2 tab orally twice a day; Discharge Orders: Discharge ED (Routine); Ordered 08/13/24 Ordered By: Roel Brooks Referrals: Matias Echevarria MD [Primary Care Provider, Family Practice] Discharge Diet: Advance as tolerated Discharge Activity: Resume usual activity Patient Instructions: Pleural Effusion (DC), Pneumonia (ED) Print Language: French Coding Level of Care Code ED Costume Rental Clerk for Phylicia Sutherland
[2024-08-13 10:18] VITALS: PULSE 149
[2024-08-13 10:28] LABS: Basophils # 0.1 10^3/uL (0.0-0.1); Basophils % 0.6 %; Eosinophils # 0.3 10^3/uL (0.0-0.8); Hematocrit 43.5 % (37-53); Lymphocytes # 1.6 10^3/uL (0.8-4.8); Lymphocytes % 18.5 %; Mean Corpuscular Hemoglobin 29.5 pg (27-33); Mean Corpuscular Volume 92.4 fl (82-101); Mean Platelet Volume 11.2 fL (7.4-10.4); Monocytes # 0.6 10^3/uL (0.2-0.9); Monocytes % 6.8 %; Neutrophils # 5.94 10^3/uL (1.8-7.7); Neutrophils % 69.7 %; Nucleated Red Blood Cells % 0 %; Platelet Count 213 10^3/cmm (157-399); Red Blood Count 4.71 10^6/uL (3.85-5.65); Red Cell Distribution Width 15.8 % (12.1-15.1); White Blood Count 8.52 10^3/uL (3.29-11.43)
--- NOTE | 2024-08-13 10:36 | ECG_ITS ---
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 Measurements Intervals [place] Rate: 74 P: 0 HI: 0 QRS: 97 QRSD: 106 T: 41 QT: 407 QTc: 452 Interpretive Statements ATRIAL FIBRILLATION BORDERLINE RIGHT AXIS DEVIATION [QRS AXIS > 90] INCOMPLETE RIGHT BUNDLE BRANCH BLOCK [90+ ms QRS DURATION, TERMINAL R IN V1/V2, 40+ ms S IN I/aVL/V4/V5/V6] ABNORMAL RHYTHM ECG Compared to ECG 12/05/2022 01:31:28 Incomplete right bundle-branch block now present Sinus rhythm no longer present Electronically Signed On 08-13-2024 12:27:31 CDT by Amanda Maria M.D. [email or web address]
[2024-08-13] MEDS: cefTRIAXone 1,000 mg SDV 1000 MG IVP (10:43)
[2024-08-13] MEDS: AZITHROMYCIN ADD-Vantage 500 MG in 0.9% NaCl ADD-Vantage 250 ML 250 MG IV (10:46)
[2024-08-13 11:15] LABS: D Dimer 1.93 ug/mLFEU (0-0.59)
--- NOTE | 2024-08-13 11:21 | CTR_ITS ---
PROCEDURE INFORMATION: Exam: CTA Chest With Contrast Exam date and time: 08/13/2024 12:23 PM Age: 73 years old Clinical indication: Shortness of breath; Additional info: SOB TECHNIQUE: Imaging protocol: Computed tomographic angiography of the chest with contrast. Exam focused on the arteries. 3D rendering (Not supervised by radiologist): MIP and/or 3D reconstructed images were created by the technologist. Radiation optimization: All CT scans at this facility use at least one of these dose optimization techniques: automated exposure control; mA and/or kV adjustment per patient size (includes targeted exams where dose is matched to clinical indication); or iterative reconstruction. Contrast material: OMNI 350; Contrast volume: 79 ml; Contrast route: INTRAVENOUS (IV); COMPARISON: CR (CHEST, ) 08/13/2024 10:15 AM RADIATION DOSE METRICS: Total DLP (mGy-cm): 437.35 FINDINGS: Pulmonary arteries: Normal. No pulmonary emboli. There is slightly suboptimal visualization of the lower lobe pulmonary arteries, right worse than left, due to decreased/delayed vascular contrast opacification. Aorta: Unremarkable. No aortic aneurysm. No aortic dissection. Lungs: Right lower lobe atelectasis/consolidation inferiorly. Cystic lesion with bronchiectasis in the right middle lobe measuring 4 x 4.4 cm. Pleural spaces: Rgtap-nm-zemwoerj bilateral pleural effusions, ulwgr-amotech-dagr-left. Heart: Unremarkable. No cardiomegaly. No pericardial effusion. Lymph nodes: AP window node measures 1.2 cm in short axis other shotty lymph nodes measure less than 1 cm in the prevascular and AP window. Right hilar node measures 1.3 cm.. Bones/joints: Unremarkable. No acute fracture. Soft tissues: Unremarkable. CT/CT angio chest PE protcl [id number] IMPRESSION: 1. No pulmonary emboli visualized. 2. Bilateral pleural effusions, lxwei-khzexns-dton-left. Right lower lobe compressive atelectasis/consolidation. 3. Cystic lesion in the right middle lobe. 4. Adenopathy in the right hilum and AP window which may be reactive.
[2024-08-13 11:28] LABS: Alanine Aminotransferase 40 U/L (0-41); Albumin Level 3.7 g/dL (3.5-5.2); Alkaline Phosphatase 53 U/L (40-130); Anion Gap 16.3 (5-19); Aspartate Amino Transferase 43 U/L (0-40); Blood Urea Nitrogen 22 mg/dL (8-23); Calcium 8.6 mg/dL (8.5-10.5); Carbon Dioxide 24 mmol/L (22-29); Chloride 98 mmol/L (98-107); Creatinine Clr Calc Pharmacy 51.5599; Globulin 3.4 g/dL (1.3-4.6); Glucose 120 mg/dL (65-115); NT Pro B Type Natriuretic Pept 7303 pg/mL (0-125); Osmolality Calculated 283 mOsm/kg (285-295); Potassium 4.3 mmol/L (3.5-5.1); Sodium 134 mmol/L (136-145); Total Bilirubin 1.1 mg/dL (0.15-1.2); Total Protein 7.1 g/dL (6.6-8.7)
[2024-08-13 11:36] VITALS: BP 96/65; PULSE 88; O2SAT 94
[2024-08-13] MEDS: iohexol 350 mg/mL 500 mL Btl (per mL) IV (12:24)
[2024-08-13] MEDS: FUROsemide 10 mg/mL SDV 4mL 40 MG IVP (12:39)
[2024-08-13 12:40] VITALS: BP 102/72; PULSE 93; O2SAT 94
[2024-08-13] MEDS: doxycycline 100 mg Tablet PO (13:38)
[2024-08-13 13:59] VITALS: BP 123/103; PULSE 88; O2SAT 93
== END 2024-08-13 13:45 | disposition home or self-care (01) ==
PROVIDERS: Emergency Provider Emergency Medicine; PCP Family Medicine
DX: J18.9 Pneumonia, unspecified organism (principal); I48.91 Unspecified atrial fibrillation; J90 Pleural effusion, not elsewhere classified; Z79.02 Long term (current) use of antithrombotics/antiplatelets; I25.10 Atherosclerotic heart disease of native coronary artery without angina pectoris; E78.2 Mixed hyperlipidemia
CPT/HCPCS: 36415; 71045; 71275; 80053; 83880; 85025; 85378; 87040; 93005; 96365; 96366; 96375; 99285; J0456; J0696; J1938; J3490; J7030; J7050; J9999

== ENCOUNTER 2024-11-24 22:08 | Inpatient (IN) | payer MEDICARE, OTHER, SELFPAY ==
--- OUTSIDE RECORDS SUMMARY | 2024-11-21 14:30 | XMS_ITS | Encounter Summary ---
Author Organization [facility] Address [address] [place] [address] Care Team Providers Care Blender Machine Operator Name Role Phone Kristan Box Primary Care Provider [phone] Reason for Visit * Echocardiography (Routine) - Authorized Specialty Diagnoses / Procedures Referred By Contac t Referred To Contact Radiology Diagnoses Swelling of both lower extremities Atrial fibrillation, unspecified type (CMS/HCC) Procedures ECHO COMPLETE - CONTRAST AND STRAIN IF INDICATED ECHO COMPLETE - CONTRAST AND STRAIN IF INDICATED UT ECHO TTHRC R-T 2D W/WOM-MODE COMPL SPEC&COLR D UT MYOCRD STRAIN IMG SPECKLE TRCK ASSMT MYOCRD [facility] UT TTE W OR WO FOL WCON,DOPPLER June, [employer] [address] [place] [address] Phone: tel: fax: [facility] [address] [place] [address] Phone: tel: fax: Referral ID Status Reason Start Date Expiration Date Visits Requested Visits Authorized [id number] Authorized SGF CTS to Schedule 11/09/2024 12/10/2025 1 1 Encounter Details Date Type Department Care Team (Late st Contact Info) Description 11/21/2024 2:30 PM CDT Hospital Encounter [facility] [address] [place] [address] June, [address] [place] [address] Social History Tobacco Use Types Packs/Day Years Used Date Smoking Tobacco: Never Passive Smoke Exposure: Never Smokeless Tobacco: Never Alcohol Use Standard Drinks/Week Comments Never 0 (1 standard drink = 0.6 oz pur e alcohol) Sex and Gender Information Value Date Recorded Sex Assigned at Not on file Legal Sex Male 1:00 PM CDT Gender Identity Not on file Sexual Orientation Not on file documented as of this encounter Plan of Treatment Upcoming Encounters Date Type Department Care Team (Late st Contact Info) Description 12/11/2024 1:20 PM CDT Office Visit [facility] [place] [address] [place] [address] June, [facility] [address] [facility] [place] [phone] Scheduled Orders Name Type Priority Associated Diagnoses Orde r Schedule ECHO COMPLETE - CONTRAST AND STRAIN IF INDICATED Echocardiogram Routine Swelling of both lower extremities Expected: 11/16/2024 (Approximate), Expires: 01/09/2026 documented as of this encounter Visit Diagnoses Not on filedocumented in this encounter Care Teams Blender Machine Operator Relationship Specialty Start Date End Date Kristan Box DO [address] [facility] [place] [phone] PCP - General Family Practice 10/27/24 documented as of this encounter
--- NOTE | 2024-11-24 22:11 | XRR_ITS ---
PROCEDURE INFORMATION: Exam: XR Chest Exam date and time: 11/24/2024 11:04 PM Age: 74 years old Clinical indication: Cough TECHNIQUE: Imaging protocol: Radiologic exam of the chest. Views: 1 view. COMPARISON: CT angio chest PE protcl [id number] 08/13/2024 12:23 PM FINDINGS: Lungs: Unremarkable. No consolidation. Pleural spaces: Unremarkable. No pleural effusion. No pneumothorax. Heart/Mediastinum: Unremarkable. No cardiomegaly. Bones/joints: Unremarkable. XR/XR chest 1V portable [id number] IMPRESSION: No acute findings.
--- OUTSIDE RECORDS SUMMARY | 2024-11-24 22:14 | XMS_ITS | Clinical Summary ---
Author Organization [facility] Jerry yoon Barbi Address [address] [place] [address] Phone Care Team Providers Care Detailer Furniture Name Role Phone Kristan Box Primary Care Provider [phone] Allergies No known active allergies Medications metoprolol succinate (TOPROL XL) 25 mg Extended Release 24 hour tablet Take 25 mg by mouth daily. Active atorvastatin (LIPITOR) 40 mg tablet Take 40 mg by mouth daily. Active levETIRAcetam (KEPPRA) 1,000 mg tablet Take 1,000 mg by mouth 2 times daily. Active clopidogreL (PLAVIX) 75 mg Tablet Take 75 mg by mouth. Active ferrous sulfate 325 mg (65 mg iron) tabletIndication s:Other iron deficiency anemia Take 1 Tablet (325 mg) by mouth daily. 30 Tablet 4 10/31/2024 Active bumetanide (BUMEX) 1 mg tabletIndication s:Swelling of both lower extremities Take 1 Tablet (1 mg) by mouth 1 time daily as needed for Other (See Comment) (Swelling). 30 Tablet 3 11/09/2024 Active potassium CHLORIDE (K-TAB) 20 mEq Extended Release tabletIndication s:Swelling of both lower extremities Take 1 tablet (20 MEQ) daily when taking Bumex 30 Tablet 2 11/09/2024 Active Active Problems No known active problems Encounters Date Type Department Care Team Description 11/21/2024 2:30 PM CDT Hospital Encounter [facility] [address] [place] [id number] MiryamJune, RECLAMATION WORKER 11/10/2024 Results Follow-Up [facility] [address] [place] [address] Witt, June, RECLAMATION WORKER ACUTE HEPATITIS PANEL, TSH, T4 FREE, Additional followed-up results: 3 11/09/2024 4:00 PM CDT Office Visit [place] [address] [address] [place] [address] June, RECLAMATION WORKER Swelling of both lower extremities (Primary Dx); Hyponatremia; Elevated liver enzymes; Elevated TSH; Onychauxis 11/08/2024 Nurse Triage [place] [address] [place] [address] Kristan Box DO 11/01/2024 External Device Data [facility] ABSTRACTION Provider, Abstract 10/31/2024 External Device Data ST[facility] ABSTRACTION Provider, Abstract 10/31/2024 External Device Data ST[facility] ABSTRACTION Provider, Abstract 10/31/2024 Orders Only [address] [address] June, RECLAMATION WORKER Other iron deficiency anemia (Primary Dx) 2024 Results Follow-Up [place] [address] [place] [address] June, RECLAMATION WORKER LIPID PANEL, TSH, COMPREHENSIVE METABOLIC PANEL, Additional followed-up results: 3 10/27/2024 2:40 PM CDT Office Visit [place] [address] [place] [address] , June, RECLAMATION WORKER Encounter to establish care (Primary Dx); Mixed hyperlipidemia; Seizures (CMS/HCC); Encounter for colorectal cancer screening; Atrial fibrillation, unspecified type (CMS/HCC); Occasional tremors from Last 3 Months Social History Tobacco Use Types Packs/Day Years Used Date Smoking Tobacco: Never Passive Smoke Exposure: Never Smokeless Tobacco: Never Tobacco Cessation:Counseling Given: No Alcohol Use Standard Drinks/Week Comments Never 0 (1 standard drink = 0.6 oz pur e alcohol) Sex and Gender Information Value Date Recorded Sex Assigned at Not on file Legal Sex Male 1:00 PM CDT Gender Identity Not on file Sexual Orientation Not on file Last Filed Vital Signs Vital Sign Reading Time Taken Comments Blood Pressure 118/68 11/09/2024 3:53 PM CDT Pulse 84 11/09/2024 3:53 PM CDT Temperature 37 C (98.6 F) 11/09/2024 3:53 PM CDT Respiratory Rate 18 11/09/2024 3:53 PM CDT Oxygen Saturation 91% 11/09/2024 3:53 PM CDT Inhaled Oxygen Concentration - - Weight 81.6 kg (180 lb) 11/09/2024 3:53 PM CDT Height 180.3 cm (5' 11 ) 11/09/2024 3:53 PM CDT Body Mass Index 25.1 11/09/2024 3:53 PM CDT Plan of Treatment Upcoming Encounters Date Type Department Care Team (Late st Contact Info) Description 12/11/2024 1:20 PM CDT Office Visit [facility] [address] [place] [phone] WittJune, [facility] [address] [place] [address] Health Maintenance Due Date Last Done Comments FIT/ DNA Q 3 YEARS (AUTO ORDER) 10/31/1967 FIT/FOBT Q 1 YEAR (AUTO ORDER) 10/31/1967 FLEX SIG/CT COLONOGRAPHY Q 5 YEARS (AUTO ORDER) 1967 DTAP/TDAP/TD VACCINES (1 - Tdap) 1968 Traditional Medicare (ACO) Annual Wellness Visit 10/30 COLORECTAL CANCER SCREENING (AUTO ORDER) 1994 COLORECTAL SCREENING 1994 Colorectal Cancer Screening (AUTO ORDER) 1994 Colorectal Cancer Screening 1994 FIT-DNA Q 3 years 1994 FIT/FOBT Q 1 year 1994 Flex Sig/CT Colonography Q 5 years 1994 PNEUMOCOCCAL VACCINE 50+ YEARS (1 of 1 - PCV) 10/31/19 00 ZOSTER VACCINE (1 of 2) 10/31/1999 INFLUENZA VACCINE (#1) 2024 RSV VACCINE (60+ or ) (1 - 1-dose 75+ series) 2024 Procedures Procedure Name Priority Date/Time Associated Diagnosis Comments COLON CANCER SCREEN, STOOL DNA Routine 11/14/2024 2:30 PM CDT Encounter for colorectal cancer screening [facility] TEST IN QUESTION (ACTION NEEDED) (NO MY CHART) Routine 11/09/2024 4:33 PM CDT COMPREHENSIVE METABOLIC PANEL Routine 11/09/2024 4:33 PM CDT Hyponatremia BRAIN NATRIURETIC PEPTIDE, BNP OR PROBNP Routine 11/09/2024 4:33 PM CDT Swelling of both lower extremities THYROID ANTIBODIES Routine 11/09/2024 4: 33 PM CDT Elevated TSH T4 FREE Routine 11/09/2024 4:33 PM CDT Elevated TSH TSH Routine 11/09/2024 4:33 PM CDT Elevated TSH ACUTE HEPATITIS PANEL Routine 11/09/2024 4:33 PM CDT Elevated liver enzymes VITAMIN B12 AND FOLATE Routine 10/27/2024 3:36 PM CDT Occasional tremors IRON, TIBC, AND PERCENT SATURATION Routine 10/27/2024 3:36 PM CDT Occasional tremors CBC WITH DIFFERENTIAL Routine 10/27/2024 3:36 PM CDT Mixed hyperlipidemia COMPREHENSIVE METABOLIC PANEL Routine 10/27/2024 3:36 PM CDT Mixed hyperlipidemia TSH Routine 10/27/2024 3:36 PM CDT Mixed hyperlipidemia LIPID PANEL Routine 10/27/2024 3:36 PM CDT Mixed hyperlipidemia from Last 3 Months Results * COLON CANCER SCREEN, STOOL DNA (11/14/2024 2:30 PM CDT) COLOGUARD RESULT Sample Could Not Be Processed N/A [facility] Comment: The Cologuard (TM) test was assigned to this specimen. The specimen was not collected according to the provided instructions. The patient will be contacted to initiate a new sample collection. Stool STOOL SPECIMEN / Unknown 11/14/2024 2:30 PM CDT 11/16/2024 9:51 PM CDT June RECLAMATION WORKER BODY FLUIDS AND STOOLS Final Res ult Performing Organization Address City/[facility] Co de Phone Number [facility] CLIA # [id number] [address] [facility], [address] [place] [address] * [facility] TEST IN QUESTION (ACTION NEEDED) (NO MY CHART) (11/09/2024 4:33 PM CDT) Pathologist [facility] REPORT/SPECIMEN COMMENT [facility] Comment: Whole blood, unspun or partially spun gel barrier tube was received more than 6 hours since collection. A false elevation of K, Phos and LD as well as a false decrease in glucose may occur due to prolonged contact with red cells. Test Performed at: [facility] [address] [facility] [place] [address] Nela Reyes MD 11/09/2024 4:33 PM CDT 11/10/2024 4:50 AM CDT June RECLAMATION WORKER CHEMISTRY ORDERABLES Final Resul t Performing Organization Address [facility] Co de Phone Number [facility] [phone] [facility] [address] [place] [address] * ACUTE HEPATITIS PANEL (11/09/2024 4:33 PM CDT) Pathologist [facility] HEPATITIS A IGM NON-REACTI VE NON-REACT ALANA [facility] Comment: For additional information, please refer to http://education.Gaia Interactive.PlusBlue Solutions/faq/ACO874 (This link is being provided for informational/ educational purposes only.) HEPATITIS B SURFACE AG NON-REACTI VE NON-REACT ALANA [facility] Comment: For additional information, please refer to http://Carrier IQ/faq/EBM511 (This link is being provided for informational/ educational purposes only.) HEPATITIS B CORE IGM NON-REACTI VE NON-REACT ALANA [facility] Comment: For additional information, please refer to http://CrossTx.Innov Analysis Systems/faq/ZAN739 (This link is being provided for informational/ educational purposes only.) HEPATITIS C AB NON-REACTI VE NON-REACT ALANA [facility] Comment: HCV antibody was non-reactive. There is no laboratory evidence of HCV infection. In most cases, no further action is required. However, if recent HCV exposure is suspected, a test for HCV RNA (test code 98942) is suggested. For additional information please refer to http://Carrier IQ/faq/AMV46x3 (This link is being provided for informational/ educational purposes only.) Test Performed at: [facility] [address] [place] [address] Nela Reyes MD Blood 11/09/2024 4:33 PM CDT 11/10/2024 4:51 AM CDT June RECLAMATION WORKER CHEMISTRY ORDERABLES Final Resul t [facility] [phone] [facility] [address] [facility] [place] [address] * THYROID AUTOANTIBODIES PROFILE (11/09/2024 4:33 PM CDT) THYROGLOBULIN AB <1 < or = 1 IU/mL [facility] THYROID PEROXIDASE AB <1 <9 IU/mL [facility] Comment: Test Performed at: [facility] [address] [place] [address] Sony Cruz Blood 11/09/2024 4:33 PM CDT 11/10/2024 4:51 AM CDT [facility] Final Resul t [facility] [phone] [facility] [address] [place] [address] * TSH (11/09/2024 4:33 PM CDT) Only the most recent of2 resultswithin the time period is included. TSH 4.26 0.40 - 4.50 mIU/L [facility] Comment: Test Performed at: [facility] [address] [place] [address] Nela Reyes MD Blood 11/09/2024 4:33 PM CDT 11/10/2024 4:51 AM CDT June [facility] CHEMISTRY ORDERABLES Final Resul t Performing Organization Address [facility] Co de Phone Number [facility] [phone] [facility] [address] [place] [address] * T4 FREE (11/09/2024 4:33 PM CDT) T4 FREE 1.0 0.8 - 1.8 ng/dL [facility] Comment: Test Performed at: [facility] [address] [place] [address] Nela Reyes MD Blood 11/09/2024 4:33 PM CDT 11/10/2024 4:51 AM CDT June [facility] CHEMISTRY ORDERABLES Final Resul t Performing Organization Address City/[facility]/ZIP Co de Phone Number [facility] [phone] [address] * (ABNORMAL) BRAIN NATRIURETIC PEPTIDE, BNP OR PROBNP (11/09/2024 4:33 PM CDT) Pathologist [facility] PROBNP, N TERMINAL 8,062(H) <450 pg/mL [facility] Comment: Test Performed at: [facility] [address] [facility] [place] [address] Nela Reyes MD Blood 11/09/2024 4:33 PM CDT 11/10/2024 4:50 AM CDT June Witt [facility] CHEMISTRY ORDERABLES Final Resul t [facility] [phone] [facility] [place] [address] * (ABNORMAL) COMPREHENSIVE METABOLIC PANEL (11/09/2024 4:33 PM CDT) Only the most recent of2 resultswithin the time period is included. [facility] GLUCOSE 79 65 - 99 mg/dL [facility] Comment: Fasting reference interval BUN 18 7 - 25 mg/dL [facility] CREATININE 1.42(H) 0.70 - 1.28 mg/dL [facility] GFR 52(L) > OR = 60 mL/min/1.7 3m2 [facility] BUN/CREAT RATIO 13 6 - 22 (calc) [facility] SODIUM 136 135 - 146 mmol/L [facility] POTASSIUM 3.8 3.5 - 5.3 mmol/L [facility] CHLORIDE 96(L) 98 - 110 mmol/L [facility] CO2 31 20 - 32 mmol/L [facility] CALCIUM 8.3(L) 8.6 - 10.3 mg/dL [facility] TOTAL PROTEIN 6.5 6.1 - 8.1 g/dL [facility] ALBUMIN 3.5(L) 3.6 - 5.1 g/dL [facility] GLOBULIN 3.0 1.9 - 3.7 g/dL (calc) [facility] ALBUMIN/GLOBULIN RATIO 1.2 1.0 - 2.5 (calc) [facility] BILIRUBIN TOTAL 2.4(H) 0.2 - 1.2 mg/dL [facility] ALKALINE PHOSPHATASE 66 35 - 144 U/L [facility] AST 40(H) 10 - 35 U/L [facility] ALT 41 9 - 46 U/L [facility] Comment: Test Performed at: [facility] [address] [place] [address] Nela Reyes MD Blood 11/09/2024 4:33 PM CDT 11/10/2024 4:50 AM CDT June [facility] CHEMISTRY ORDERABLES Final Resul t Performing Organization Address [facility] de Phone Number [facility] [phone] [facility] [address] [place], [place] [address] [address] * (ABNORMAL) VITAMIN B12 AND FOLATE (10/27/2024 3:36 PM CDT) VITAMIN B12 >2000(H) 200 - 1100 pg/mL [facility] FOLATE, SERUM 15.7 ng/mL [facility] Comment: Reference Range Low: <3.4 Borderline: 3.4-5.4 Normal: >5.4 Test Performed at: [facility] [address] [facility] [address] LucieHaleigh Reyes MD Blood 10/27/2024 3:36 PM CDT 10/28/2024 3:06 AM CDT June [facility] CHEMISTRY ORDERABLES Final Resul t Performing Organization Address City/[facility] Co de Phone Number [facility] [phone] [facility] [place] [address] * (ABNORMAL) IRON, TIBC, AND PERCENT SATURATION (10/27/2024 3:36 PM CDT) Pathologist [facility] IRON 35(L) 50 - 180 mcg/dL [facility] TIBC 227(L) 250 - 425 mcg/dL (calc) [facility] IRON % SATURATION 15(L) 20 - 48 % (calc) [facility] Comment: Test Performed at: [facility] [address] [place] [address] Nela Reyes MD Blood 10/27/2024 3:36 PM CDT 10/28/2024 3:06 AM CDT June [facility] CHEMISTRY ORDERABLES Final Resul t [facility] [phone] [facility] [address] * (ABNORMAL) CBC WITH DIFFERENTIAL (10/27/2024 3:36 PM CDT) Pathologist [facility] WBC 7.8 3.8 - 10.8 Thousand/u L [facility] RBC 5.11 4.20 - 5.80 Million/uL [facility] HEMOGLOBIN 15.0 13.2 - 17.1 g/dL [facility] HEMATOCRIT 47.2 38.5 - 50.0 % [facility] MCV 92.4 80.0 - 100.0 fL [facility] MCH 29.4 27.0 - 33.0 pg [facility] MCHC 31.8(L) 32.0 - 36.0 g/dL [facility] Comment: For adults, a slight decrease in the calculated MCHC value (in the range of 30 to 32 g/dL) is most likely not clinically significant; however, it should be interpreted with caution in correlation with other red cell parameters and the patient's clinical condition. RDW 15.4(H) 11.0 - 15.0 % [facility] PLATELETS 227 140 - 400 Thousand/u L [facility] MPV 11.3 7.5 - 12.5 fL [facility] NEUTROPHIL ABSOLUTE 5,725 1,500 - 7,800 cells/uL [facility] LYMPHOCYTE ABSOLUTE 1,349 850 - 3,900 cells/uL [facility] MONOCYTE ABSOLUTE 577 200 - 950 cells/uL [facility] EOSINOPHIL ABSOLUTE 101 15 - 500 cells/uL [facility] BASOPHILS ABSOLUTE 47 0 - 200 cells/uL [facility] NEUTROPHIL 73.4 % [facility] LYMPHOCYTES 17.3 % [facility] MONOCYTE 7.4 % [facility] EOSINOPHILS 1.3 % [facility] BASOPHILS 0.6 % [facility] Comment: Test Performed at: [facility] [address] [place] [address] Nela Reyes MD Blood 10/27/2024 3:36 PM CDT 10/28/2024 3:05 AM CDT June Witt [facility] HEMATOLOGY ORDERABLES Final Resu lt [facility] [phone] [facility] [address] [place] [address] * (ABNORMAL) LIPID PANEL (10/27/2024 3:36 PM CDT) CHOLESTEROL 91 <200 mg/dL [facility] HDL 17(L) > OR = 40 mg/dL [facility] TRIGLYCERIDE 72 <150 mg/dL [facility] LDL CALCULATED 59 mg/dL (calc) [facility] Comment: Reference range: <100 Desirable range <100 mg/dL for primary prevention; <70 mg/dL for patients with CHD or diabetic patients with > or = 2 CHD risk factors. LDL-C is now calculated using the Ruby calculation, which is a validated novel method providing better accuracy than the Friedewald equation in the estimation of LDL-C. Shawn ESQUIVEL et al. MEME. 2013;310(19): 3822-2705 (http://education.ElasticBox.PlusBlue Solutions/faq/NER981) CHOL/HDL RATIO 5.4(H) <5.0 (calc) [facility] NON-HDL CHOLESTEROL 74 <130 mg/dL (calc) [facility] Comment: For patients with diabetes plus 1 major ASCVD risk factor, treating to a non-HDL-C goal of <100 mg/dL (LDL-C of <70 mg/dL) is considered a therapeutic option. Test Performed at: [facility] [address] [address] Nela Reyes MD Blood 10/27/2024 3:36 PM CDT 10/28/2024 3:05 AM CDT June RECLAMATION WORKER CHEMISTRY ORDERABLES Final Resul t [facility] Organization Address City/State/ZIP Co nm Phone Number [facility] [phone] [facility] [address] [address] [phone] from Last 3 Months Insurance GENERIC [employer]OR Member Subscriber Plan / Payer (Ef fective 2024-Present) Name:Enrique Morales Relation to Subscriber:Self Name:Enrique Morales Payer ID:Not on file Group ID:Not on file Type:Other Address: [address] [id number] MEDICARE PART A HOSPITAL ONLY Care Teams Detailer Furniture Relationship Specialty Start Date End Date Kristan Box DO [address] [place] [address] PCP - General Family Practice 10/27/24
[2024-11-24 22:33] VITALS: BP 119/80; PULSE 171; RESP 16; TEMP 36.8; O2SAT 98; BMI 26.9
--- NOTE | 2024-11-24 22:56 | ECG_ITS ---
[facility] [employer] Test Date: 2024-11-24 Pat Name: Enrique Morales Department: Room: Gender: Male Product Safety Officer: : 1950 Requested By: Yo Salcedo Order Number: [id number] Joyner MD: Farhan Gupta M.D. Measurements Intervals [place] Rate: 161 P: 0 WA: 0 QRS: 208 QRSD: 99 T: 60 QT: 283 QTc: 463 Interpretive Statements ATRIAL FIBRILLATION INCOMPLETE RIGHT BUNDLE BRANCH BLOCK [90+ ms QRS DURATION, TERMINAL R IN V1/V2, 40+ ms S IN I/aVL/V4/V5/V6] Compared to ECG 08/13/2024 10:36:58 HEART RATE HAS SIGNIFICANTLY INCREASED Electronically Signed On 11-26-2024 23:12:45 CDT by Farhan Gupta M.D. [email or web address]
[2024-11-24 23:17] VITALS: BP 138/98; PULSE 154; O2SAT 97
[2024-11-24 23:28] LABS: Hematocrit 46.4 % (37-53); Hemoglobin 15.10 g/dL (11.27-16.99); Mean Corpuscular HGB Conc 32.5 g/dL (30-55); Mean Corpuscular Hemoglobin 29.0 pg (27-33); Mean Corpuscular Volume 89.1 fl (82-101); Nucleated Red Blood Cells % 0 %; Platelet Count 174 10^3/cmm (157-399); Red Blood Count 5.21 10^6/uL (3.85-5.65); White Blood Count 5.06 10^3/uL (3.29-11.43)
[2024-11-24 23:46] LABS: Lactic Sepsis W/Reflex 1.7 mmol/L (0.5-2.2)
[2024-11-24] MEDS: dilTIAZem 5 mg/mL SDV 5 mL 20 MG IVP (23:46)
[2024-11-24 23:48] VITALS: BP 126/94; PULSE 153; O2SAT 99
[2024-11-24 23:50] LABS: Troponin(5th) Baseline 34 ng/L (0-15)
[2024-11-24] MEDS: dilTIAZem 100 MG in sodium chloride 0.9% (add-van) 100 ML IV (23:50)
--- NOTE | 2024-11-24 23:54 | PM.HP ---
Providers/Chief Complaint Admitting Physician: DELMA HARRISON DO--patient seen and evaluated before midnight in the ED Primary Care Provider: Matias Echevarria MD Chief Complaint: cough feels choking violently causes abd pain History of Present Illness Enrique Morales is a 74 year old male with medical history significant for high blood pressure hyperlipidemia coronary artery disease, peripheral artery disease and paroxysmal atrial fibrillation history who now presented today with complaints of violent coughs that make him feel like he is choking giving him abdominal pain along with palpitation.. Patient came to the emergency room because he had been having palpitation. At presentation heart rate was found to be in the 140s to 160s showing SVTs. Emergency room had given IV metoprolol digoxin boluses and started patient on Cardizem drip patient did not went from SVT to atrial fibrillation amnio bolus was given amnio drip was started patient then was admitted to ICU. Cardiology will be on the case. Upon in had negative delta Review of Systems Narrative: System review upon 10 organ review with significant for cardiovascular with no chest pain at tachyarrhythmia. Medications/Allergies Home Medications ?Medication ?Instructions ?Recorded ?Confirmed ?Last Taken ?Type atorvastatin 40 mg tablet 40 mg PO BEDTIME #90 tabs 06/05/24 11/21/24 Unknown Rx clopidogrel 75 mg tablet 75 mg PO DAILY #90 tabs 06/05/24 11/21/24 Unknown Rx levetiracetam 1,000 mg tablet 1,000 mg PO BID #60 tabs 06/05/24 11/21/24 Unknown Rx metoprolol tartrate 25 mg tablet See Rx Instructions PO BID #90 tabs 06/05/24 11/21/24 Unknown Rx furosemide 40 mg tablet (Lasix) 40 mg PO QAM #30 tabs 08/13/24 11/21/24 Unknown Rx Allergies Allergy/AdvReac Type Severity Reaction Status Date / Time No Known Allergies Allergy Verified 11/24/24 22:36 PFSH Acute PFSH: Medical History Subdural hemorrhage Presence of stent in LAD coronary artery Coronary artery disease Pneumonia Atrial fibrillation Mixed hyperlipidemia Seizure disorder Surgical History Hx of tonsillectomy History of appendectomy Family History Mother , AT AGE 91 Cancer Father , AT AGE 83 Pneumonia Social History Smoking and tobacco/nicotine status: never used tobacco/nicotine Alcohol intake: never Substance/Drug Use: never Vitals/I&O/Wt Last Vital Signs Temp 98.2 F 11/24/24 22:33 Pulse 153 H 11/24/24 23:48 Resp 16 11/24/24 22:33 BP 126/94 11/24/24 23:48 Pulse Ox 99 11/24/24 23:48 O2 Del Method Room Air 11/24/24 23:48 11/24/24 11/24/24 11/25/24 14:59 22:59 06:59 Intake Total 0 / 0 Balance 0 / 0 Weight last 48 hrs Weight 87.543 kg Physical Exam Narrative: Generally patient is not ill-appearing pretty much alert awake and alert asymptomatic. HEENT normocephalic atraumatic neck neck is supple cardiovascular heart rate is regular lungs are pretty much clear abdomen soft nontender nondistended unremarkable extremities are intact no edema has good pulses neurology has no focality lab studies lab studies reviewed and noted. Data 11/24/24 23:18 11/24/24 23:18 A&P Assessment and plan 1. SVT (supraventricular tachycardia): 2. Atrial fibrillation with rapid ventricular response: 3. Acute renal failure: 4. PAD (peripheral artery disease): 5. Coronary artery disease: 6. Dehydration: Plan: #1 SVT/atrial fibrillation with rapid ventricular rate - Admit to ICU for optimization for tachyarrhythmia - Patient with SVT with aberrancy and terminate into atrial fibrillation with rapid ventricular rate - Could not respond much to Cardizem boluses Cardizem drip digoxin IV metoprolol then finally initiated on amiodarone with drip per protocol - Will continue to treat and optimize - Patient denies any shortness of breath denies any chest pain totally asymptomatic - No febrile illness white count normal chest x-ray normal - Gentle hydration with normal saline - Cardiology consulted - Follow-up on echocardiogram #2 Acute renal failure -Gentle hydration for optimization #3 Chronic medical problem such as PAD, CAD,-continue home statins and antiplatelets such as Plavix #4 GI and DVT prophylaxis in place PDMP PDMP Reviewed: Last Reviewed 11/25/24 03:24 by Delma Harrison MD Attestations Medical Necessity Statement*: Patient with SVT and atrial fibrillation with rapid ventricular rate, acute renal failure indeed will need 2 midnights stay in the hospital for further optimization of care patient meets inpatient criteria. Patient is en route to ICU Coding Level of Care Code 67728 Diagnoses SVT (supraventricular tachycardia) I47.10 Atrial fibrillation with rapid ventricular response I48.91 Acute renal failure N17.9 PAD (peripheral artery disease) I73.9 Coronary artery disease I25.10 Dehydration E86.0 Time Spent (min) 70
[2024-11-24 23:58] LABS: Alanine Aminotransferase 36 U/L (0-41); Albumin Level 4.2 g/dL (3.5-5.2); Alkaline Phosphatase 74 U/L (40-130); Anion Gap 20.9 (5-19); Aspartate Amino Transferase 54 U/L (0-40); Blood Urea Nitrogen 30 mg/dL (8-23); Calcium 8.9 mg/dL (8.5-10.5); Carbon Dioxide 25 mmol/L (22-29); Chloride 91 mmol/L (98-107); Globulin 3.4 g/dL (1.3-4.6); Glucose 98 mg/dL (65-115); Magnesium 1.9 mg/dL (1.7-2.3); Osmolality Calculated 280 mOsm/kg (285-295); Potassium 4.9 mmol/L (3.5-5.1); Sodium 132 mmol/L (136-145); Thyroid Stimulating Hormone 5.03 uIU/mL (0.27-4.20); Total Protein 7.6 g/dL (6.6-8.7)
[2024-11-24 23:59] LABS: Creatinine Clr Calc Pharmacy 38.1054
[2024-11-25] VITALS (97 sets, daily range): BP systolic 71–147; BP diastolic 58–107; PULSE 62–152; RESP 0–39; TEMP 36.6–37.5; O2SAT 59–98
--- NOTE | 2024-11-25 00:04 | CTR_ITS ---
PROCEDURE INFORMATION: Exam: CT Abdomen And Pelvis With Contrast Exam date and time: 11/25/2024 12:27 AM Age: 74 years old Clinical indication: Abnormal findings; Abnormal lab test; Prior surgery; Surgery date: 6+ months; Surgery type: Appy; Elevated bilirubin. ; Additional info: Hyperbilirubinemia TECHNIQUE: Imaging protocol: Computed tomography of the abdomen and pelvis with contrast. Radiation optimization: All CT scans at this facility use at least one of these dose optimization techniques: automated exposure control; mA and/or kV adjustment per patient size (includes targeted exams where dose is matched to clinical indication); or iterative reconstruction. Contrast material: OMNI 350; Contrast volume: 80 ml; Contrast route: INTRAVENOUS (IV); COMPARISON: CT angio chest PE protcl [id number] 08/13/2024 12:23 PM RADIATION DOSE METRICS: Total DLP (mGy-cm): 630.39 FINDINGS: Lungs: Scattered strands of the lung base, nonspecific although commonly chronic. Liver: Probable fatty liver. Gallbladder and biliary ducts: Normal. No calcified stones. No ductal dilation. Pancreas: Normal. No ductal dilation. Spleen: Normal. No splenomegaly. Adrenal glands: Normal. No mass. Kidneys and ureters: Normal. No hydronephrosis. Stomach and bowel: See Urinary bladder finding. Appendix: No evidence of appendicitis. Intraperitoneal space: Trace pelvic free fluid, unknown clinical significance., possibly related to prior surgery. Vasculature: Unremarkable. No abdominal aortic aneurysm. Lymph nodes: Unremarkable. No enlarged lymph nodes. Urinary bladder: Focally prominent loop of small bowel in the pelvis just to the right of the bladder, unknown clinical significance, can not totally exclude focal enteritis. Reproductive: See Soft tissues finding. Bones/joints: Mild degenerative changes of vertebral bodies of the lumbar spine with multilevel endplate spurring and disc space narrowing. Soft tissues: Large inguinal hernia with fluid-filled bowel, no definitive evidence of small bowel obstruction, large associated hydrocele. Other findings: Large varicosities in the left pelvis. CT/CT abdomen pelvis w con* [id number] IMPRESSION: 1. Focally prominent loop of small bowel in the pelvis just to the right of the bladder, unknown clinical significance, can not totally exclude focal enteritis. 2. Large inguinal hernia with fluid-filled bowel, no definitive evidence of small bowel obstruction, large associated hydrocele. 3. Trace pelvic free fluid, unknown clinical significance, possibly related to prior surgery.
[2024-11-25] MEDS: iohexol 350 mg/mL 500 mL Btl (per mL) IV (00:30)
--- NOTE | 2024-11-25 00:38 | W.ED.ARRPALP ---
HPI - Arrhythmia/Palpitations General: Chief Complaint: Arrhythmia/Palpitations Stated Complaint: cough feel choking violently causes abd pain Time Seen by Provider: 11/24/24 22:55 History of Present Illness: Patient is a 74-year-old male with known atrial fibrillation presenting for evaluation of his cardiac rhythm and skin lesions. Patient reports that his fast heart rate usually does not bother him, denying chest pain. He does note occasional shortness of breath when climbing stairs. He reports a history of pneumonia approximately three months ago. Patient also presents with skin lesions that a friend suggested might be scabies. The lesions are not pruritic or painful. Patient mentions difficulty getting in and out of the shower/bathtub due to balance issues. He denies leg swelling. Patient is currently taking a diuretic in the mornings and is on plavix, but no other anticoagulationn therapy for his atrial fibrillation, though he cannot recall the specific medication name. He reports minimal caffeine intake, mentioning only lemon-pechanga soda consumption. Related Data Previous Rx's ?Medication ?Instructions ?Recorded atorvastatin 40 mg tablet 40 mg PO BEDTIME #90 tabs 06/05/24 clopidogrel 75 mg tablet 75 mg PO DAILY #90 tabs 06/05/24 levetiracetam 1,000 mg tablet 1,000 mg PO BID #60 tabs 06/05/24 metoprolol tartrate 25 mg tablet See Rx Instructions PO BID #90 tabs 06/05/24 furosemide 40 mg tablet (Lasix) 40 mg PO QAM #30 tabs 08/13/24 Allergies Allergy/AdvReac Type Severity Reaction Status Date / Time No Known Allergies Allergy Verified 11/24/24 22:36 [facility] ED [facility]: Medical History (Updated 11/27/24 @ 15:24 by Iraj Watkins MD) Subdural hemorrhage Presence of stent in LAD coronary artery Coronary artery disease Pneumonia Atrial fibrillation Mixed hyperlipidemia Seizure disorder Surgical History Hx of tonsillectomy History of appendectomy Family History Mother , AT AGE 91 Cancer Father , AT AGE 83 Pneumonia Social History Smoking and tobacco/nicotine status: never used tobacco/nicotine Alcohol intake: never Substance/Drug Use: never Course Vital Signs: Vital signs: Vital Signs Temperature 98.4 F 11/28/24 07:24 Pulse Rate 66 11/28/24 07:24 Respiratory Rate 25 H 11/28/24 07:24 Blood Pressure 137/78 11/28/24 07:24 Pulse Oximetry 91 11/28/24 07:24 Oxygen Delivery Me thod Room Air 11/28/24 04:00 MDM - Arrhythmia/Palpitations Medical Decision Making This patient presented with a heart rate in the 170s. Irregular. Atrial fibrillation with RVR on EKG he was given a bolus of diltiazem with minimal improvement. Started on diltiazem drip. Heart rate remained above 120 despite this. He was given 2.5 mg of metoprolol without improvement. He was given 125 mcg of digoxin without significant improvement. He was bolused with 150 mg amiodarone, with some improvement. He maintained a relatively normal blood pressure throughout all of this. He is awake alert and talking. His CBC is not terribly remarkable. His BMP shows a sodium of 130, chloride 91, BUN of 30 and creatinine of 1.9 which is off baseline for him. Chest x-ray is nonacute. His liver enzymes show a total bilirubin of 2.6 with direct of 1.6 otherwise are normal. His lactic acid is 1.7. TSH minimally elevated at 5. Urinalysis is negative. CT performed due to elevated bilirubin. It shows a focally prominent loop of small bowel in the pelvis which could be focal enteritis. Otherwise nonacute. His chest x-ray is negative. His troponin levels are 34 at baseline and 29 at 2 hours. He will require diltiazem and amiodarone drips for rate control. He will go to the ICU. He remains awake alert, with a normal blood pressure. The hospitalist has been notified and has seen the patient in the ER. Lab Data 11/28/24 02:49 11/28/24 02:49 Radiology Impressions Chest X-Ray 11/24/24 22:11 IMPRESSION: No acute findings. Abdomen/Pelvis CT 11/25/24 00:04 IMPRESSION: 1. Focally prominent loop of small bowel in the pelvis just to the right of the bladder, unknown clinical significance, can not totally exclude focal enteritis. 2. Large inguinal hernia with fluid-filled bowel, no definitive evidence of small bowel obstruction, large associated hydrocele. 3. Trace pelvic free fluid, unknown clinical significance, possibly related to prior surgery. Chest CT 11/26/24 09:04 IMPRESSION: 1. Interval decrease in bilateral pleural effusions. 2. Multiple new clusters of ill-defined soft tissue nodules in both lungs as detailed above. Differential considerations include multifocal pneumonia, septic emboli, or new aggressive metastatic disease. 3. Focal airspace consolidation, lateral right lung sulcus consistent with pneumonia. 4. New minimal ascites. 5. Poorly definition gallbladder wall with pericholecystic fluid. The fluid may be a manifestation of the ascites or indicate acalculous cholecystitis. Clinical correlation is suggested and correlation with ultrasound. 6. Slight increase in mediastinal lymphadenopathy. Laboratory Results WBC 5.06 10^3/uL (3.29-11.43) 11/24/24 23:18 RBC 5.21 10^6/uL (3.85-5.65) 11/24/24 23:18 Hgb 15.10 g/dL (11.27-16.99) 11/24/24 23:18 Hct 46.4 % (37-53) 11/24/24 23:18 MCV 89.1 fl (82-101) 11/24/24 23:18 MCH 29.0 pg (27-33) 11/24/24 23:18 MCHC 32.5 g/dL (30-55) 11/24/24 23:18 RDW 20.9 % (12.1-15.1) H 11/24/24 23:18 Plt Count 174 10^3/cmm (157-399) 11/24/24 23:18 MPV 10.4 fL (7.4-10.4) 11/24/24 23:18 Neut % (Auto) 65.4 % 11/24/24 23:18 Lymph % (Auto) 21.3 % 11/24/24 23:18 [place] % (Auto) 11.5 % 11/24/24 23:18 Eos % (Auto) 0.6 % 11/24/24 23:18 Baso % (Auto) 0.8 % 11/24/24 23:18 Neut # (Auto) 3.31 10^3/uL (1.8-7.7) 11/24/24 23:18 Lymph # (Auto) 1.1 10^3/uL (0.8-4.8) 11/24/24 23:18 [place] # (Auto) 0.6 10^3/uL (0.2-0.9) 11/24/24 23:18 Eos # (Auto) 0.0 10^3/uL (0.0-0.8) 11/24/24 23:18 Baso # (Auto) 0.0 10^3/uL (0.0-0.1) 11/24/24 23:18 Nucleated RBC % (auto) 0 % 11/24/24 23:18 Nucleated RBCs # 0.0 /100WBC 11/24/24 23:18 Sodium 132 mmol/L (136-145) L 11/24/24 23:18 Potassium 4.9 mmol/L (3.5-5.1) 11/24/24 23:18 Chloride 91 mmol/L (98-107) L 11/24/24 23:18 Carbon Dioxide 25 mmol/L (22-29) 11/24/24 23:18 Anion Gap 20.9 (5-19) H 11/24/24 23:18 BUN 30 mg/dL (8-23) H 11/24/24 23:18 Creatinine 1.9 mg/dL (0.7-1.2) H 11/24/24 23:18 GFR Calculation Not Reportable 11/24/24 23:18 Glucose 98 mg/dL (65-115) 11/24/24 23:18 Calculated Osmolality 280 mOsm/kg (285-295) L 11/24/24 23:18 Lactic Acid 1.7 mmol/L (0.5-2.2) 11/24/24 23:18 Calcium 8.9 mg/dL (8.5-10.5) 11/24/24 23:18 Magnesium 1.9 mg/dL (1.7-2.3) 11/24/24 23:18 Total Bilirubin 2.6 mg/dL (0.15-1.2) H 11/24/24 23:18 Direct Bilirubin 1.60 mg/dL (0.00-0.30) H 11/24/24 23:18 AST 54 U/L (0-40) H 11/24/24 23:18 ALT 36 U/L (0-41) 11/24/24 23:18 Alkaline Phosphatase 74 U/L (40-130) 11/24/24 23:18 Troponin T Baseline 34 ng/L (0-15) H 11/24/24 23:18 Troponin T 120 Minute 29.33 ng/L (0-15) H 11/25/24 01:22 Delta Troponin T -4.67 ABS# (0-10) L 11/25/24 01:22 Total Protein 7.6 g/dL (6.6-8.7) 11/24/24 23:18 Albumin 4.2 g/dL (3.5-5.2) 11/24/24 23:18 Globulin 3.4 g/dL (1.3-4.6) 11/24/24 23:18 TSH 5.03 uIU/mL (0.27-4.20) H 11/24/24 23:18 Urine Color Yellow (Yellow) 11/25/24 01:20 Urine Appearance Clear (CLEAR) 11/25/24 01:20 Urine pH 5.0 (5-7) 11/25/24 01:20 Ur Specific [place] 1.021 (1.005-1.030) 11/25/24 01:20 Urine Protein 1+ (Negative) A 11/25/24 01:20 Urine Glucose (UA) Negative (Normal) 11/25/24 01:20 Urine Ketones Negative (Negative) 11/25/24 01:20 Urine Blood 1+ (Negative) A 11/25/24 01:20 Urine Nitrate Negative (Negative) 11/25/24 01:20 Urine Bilirubin Negative (Negative) 11/25/24 01:20 Urine Urobilinogen 1.0 mg/dL (Negative) 11/25/24 01:20 Ur Leukocyte Esterase Negative (Negative) 11/25/24 01:20 Urine RBC 0-2 /hpf (0-2) 11/25/24 01:20 Urine WBC 0-5 /hpf (0-5) 11/25/24 01:20 Ur Squamous Epith Cells 0-5 /hpf (0-5) 11/25/24 01:20 Amorphous Sediment Not Reportable 11/25/24 01:20 Urine Bacteria None seen /hpf (NONE) 11/25/24 01:20 Hyaline Casts 10.32 /lpf 11/25/24 01:20 Coarse Granular Casts 0-4 /lpf H 11/25/24 01:20 All radiology interpretation(s) finalized by discharge Critical Care Time Critical Care Time: Critical Care Time: Yes Total Critical Care Time: 40 Attestation: This case had a high probability of a clinically significant, sudden, or life threatening deterioration of this patient's condition which required my full and direct attention, intervention and personal management. Time is independent of any procedures performed. Discharge Plan Discharge Patient Disposition: Admitted As Inpatient Admit Provider: Nieves Aldridge Clinical Impression: Atrial fibrillation with rapid ventricular response, HANS (acute kidney injury) Condition: Serious Coding Level of Care Code ED Wholesale Manager for Phylicia Sutherland
[2024-11-25] MEDS: metoprolol tartrate 1 mg/1 mL SDV 5 mL 2.5 MG IVP (00:52)
--- NOTE | 2024-11-25 00:56 | ECG_ITS ---
[facility] Date: 2024-11-25 Pat Name: Enrique Morales Department: Room: Gender: Male White Kid Buffer: : 1950 Requested By: Yo Salcedo Order Number: [id number] Anya MD: Farhan Gupta M.D. Measurements Intervals [place] Rate: 112 P: 0 CA: 0 QRS: 193 QRSD: 92 T: 72 QT: 320 QTc: 439 Interpretive Statements ATRIAL FIBRILLATION WITH RAPID VENTRICULAR RESPONSE INCOMPLETE RIGHT BUNDLE BRANCH BLOCK [90+ ms QRS DURATION, TERMINAL R IN V1/V2, 40+ ms S IN I/aVL/V4/V5/V6] POSSIBLE RIGHT VENTRICULAR HYPERTROPHY [SOME/ALL OF: PROMINENT R IN V1, LATE TRANSITION, RAD, RDOO, SSS] Compared to ECG 11/24/2024 23:36:44 NO SIGNIFICANT CHANGE Electronically Signed On 11-27-2024 14:07:29 CDT by Farhan Gupta M.D. [email or web address]
[2024-11-25 01:28] LABS: Glucose Urine UA Negative (Normal); Nitrate Urine Negative (Negative); Specific Gravity, Urine 1.021 (1.005-1.030)
[2024-11-25 01:33] LABS: Add Urine Microscopic? YES
[2024-11-25 01:57] LABS: UA Slide Review UA Slide Review Perf
[2024-11-25 01:57] LABS: Troponin 5 2HR 29.33 ng/L (0-15)
[2024-11-25 02:00] LABS: Troponin 5 2HR Delta -4.67 ABS# (0-10)
[2024-11-25] MEDS: digoxin 250 mcg/ml INJ 2 mL 125 MCG IVP (02:15)
[2024-11-25] MEDS: amiodarone 150 MG/100 ML PREMIX 400 MG IV (03:30)
[2024-11-25 04:48] LABS: Hematocrit 43.9 % (37-53); Hemoglobin 14.50 g/dL (11.27-16.99); Mean Corpuscular HGB Conc 33.0 g/dL (30-55); Mean Corpuscular Hemoglobin 29.5 pg (27-33); Mean Corpuscular Volume 89.2 fl (82-101); Platelet Count 144 10^3/cmm (157-399); Red Blood Count 4.92 10^6/uL (3.85-5.65); White Blood Count 5.52 10^3/uL (3.29-11.43)
--- NOTE | 2024-11-25 04:56 | ECG_ITS ---
[employer] Test Date: 2024-11-25 Pat Name: Enrique Morales Department: Room: [id number] Gender: Male Bee Keeper: : 1950 Requested By: Yo Salcedo Order Number: [id number] Anya MD: Farhan Gupta M.D. Measurements Intervals [place] Rate: 123 P: 0 IA: 0 QRS: 129 QRSD: 100 T: -37 QT: 318 QTc: 456 Interpretive Statements ATRIAL FIBRILLATION WITH RAPID VENTRICULAR RESPONSE INCOMPLETE RIGHT BUNDLE BRANCH BLOCK [90+ ms QRS DURATION, TERMINAL R IN V1/V2, 40+ ms S IN I/aVL/V4/V5/V6] POSSIBLE RIGHT VENTRICULAR HYPERTROPHY [SOME/ALL OF: PROMINENT R IN V1, LATE TRANSITION, RAD, RODO, SSS] NONSPECIFIC T ABNORMALITIES Compared to ECG 11/25/2024 01:13:14 T wave flattening is new Electronically Signed On 11-27-2024 14:03:42 CDT by Farhan Gupta M.D. [email or web address]
--- NOTE | 2024-11-25 05:00 | PC.NURSE ---
Amiodarone Amiodarone bolus administered per ED with no amiodarone drip ordered. Dr. Aldridge contacted and order received to administer amiodarone drip per protocol in addition to cardizem drip.
[2024-11-25 05:07] LABS: Troponin 5 6HR 30.58 ng/L (0-15)
[2024-11-25 05:09] LABS: Alanine Aminotransferase 34 U/L (0-41); Albumin Level 3.8 g/dL (3.5-5.2); Alkaline Phosphatase 68 U/L (40-130); Anion Gap 20.9 (5-19); Aspartate Amino Transferase 48 U/L (0-40); Blood Urea Nitrogen 30 mg/dL (8-23); Calcium 8.4 mg/dL (8.5-10.5); Carbon Dioxide 23 mmol/L (22-29); Chloride 91 mmol/L (98-107); Globulin 3.2 g/dL (1.3-4.6); Glucose 90 mg/dL (65-115); Magnesium 1.8 mg/dL (1.7-2.3); Osmolality Calculated 276 mOsm/kg (285-295); Potassium 4.9 mmol/L (3.5-5.1); Sodium 130 mmol/L (136-145); Total Protein 7.0 g/dL (6.6-8.7)
[2024-11-25 05:21] LABS: Slide Review Slide Review Perform
[2024-11-25 05:22] LABS: Total Cells Counted 100 (0-100)
[2024-11-25 05:26] LABS: Absolute Segmented Neutrophil 3.5 10/cmm (1.6-7.1); Atypical Lymphs 4.0 % (0-5); Band Neutrophils Absolute 0.1 10^3/cmm (0.0-1.2)
[2024-11-25 05:32] LABS: Creatinine Clr Calc Pharmacy 38.1054; Troponin 5 6HR Delta -3.42 ng/L (0-12)
[2024-11-25] MEDS: heparin 5,000 unit/mL INJ 1 mL 5000 UNIT SUBCUT ×2 (05:40→17:24)
--- NOTE | 2024-11-25 06:00 | PC.NURSE ---
Friend Update According to patient, patient lives with friend Devaughn Topete and is her rn patient care. When Devaughn was contacted for update, Devaughn states that she helps take care of him, sets up his medications and helps him with everyday living. Approximately 8 years ago, according to Devaughn, patient was homeless and living in his van; he was picked up by police and brought to Devaughn's home as she was starting a homeless resource center in [facility]. Patient has lived with her ever since. Also according to Devaughn, patient has a diagnosis of schizophrenia and mental disability that he has received inpatient psychiatry services for in the past as well as a history of seizures controlled by keppra. Patient does corroborate that he was previously homeless prior to living with Devaughn and that Devaughn organizes his medications. Devaughn is requesting meeting with case management regarding resources available for patient. Home medication list verified by Devaughn. Dr. Aldridge notified of living arrangement, home meds, as well as possible schizophrenia diagnosis. Orders received to start 1000 mg keppra BID, lasix 40 mg po QAM, and metoprolol 12.5 mg PO BID all starting today.
[2024-11-25] MEDS: dilTIAZem 100 MG in sodium chloride 0.9% (add-van) 100 ML 15 MG IV (07:07)
--- NOTE | 2024-11-25 11:24 | USCV_ITS ---
Enrique Morales Age: 74 Gender: M : 1950 Exam Date: 11/25/2024 12:53 Ordering Phys: Farhan Gupta MD ([email or web address]) Technologist: Emanuel Gama Exam Location: [facility] – [place] Indication: afib BP: 101 / 67 HR: 101 Rhythm: Atrial fibrillation Technical Quality: Adequate MEASUREMENTS (Male / Female) Normal Values 2D ECHO LV Diastolic Diameter PLAX 3.8 cm 4.2 - 5.9 / 3.9 - 5.3 cm IVS Diastolic Thickness 1.0 cm 0.6 - 1.0 / 0.6 - 0.9 cm IVS Systolic Thickness 1.3 cm LVPW Diastolic Thickness 0.9 cm 0.6 - 1.0 / 0.6 - 0.9 cm LVPW Systolic Thickness 1.5 cm LVOT Diameter 2.0 cm LV Ejection Fraction 2D Teich 40.0 % LV Ejection Fraction MOD 4C 49.4 % LV Ejection Fraction MOD 2C 48.6 % LV Ejection Fraction 2C AL 47.3 % LA Diameter 3.0 cm RA Systolic Volume 4C AL 45.9 ml RA Systolic Volume 4C MOD 46.7 ml Aorta at Sinotubular Diameter 2.4 cm IVC Diameter 1.9 cm M-MODE LA Ao Ratio MM 1.5 AV Cusp Separation MM 1.6 cm DOPPLER AV Peak Velocity 96.0 cm/s LVOT Peak Velocity 70.0 cm/s AV Area Cont Eq vti 2.3 cm squared AV Area Cont Eq pk 2.3 cm squared MV Peak Velocity 103.0 cm/s MV Area PHT 8.1 cm squared Mitral E to A Ratio 3.2 TV Peak Velocity 198.3 cm/s TR Peak Velocity 212.0 cm/s TR Peak Gradient 18.0 mmHg TR Mean Velocity 148.0 cm/s TR Mean Gradient 10.1 mmHg TR Velocity Time Integral 48.4 cm RV Ejection Time 0.3 s FINDINGS Left Ventricle Normal left ventricular cavity size. Normal left ventricular wall thickness. Moderately decreased left ventricular systolic function. Global left ventricular hypokinesis with akinesis of the inferior wall. Left ventricular ejection fraction is 40%. Rhythm precludes evaluation of diastolic function. Right Ventricle Moderately increased right ventricular size. Moderately decreased right ventricular systolic function. Normal right ventricular systolic pressure by doppler assessment. Right Atrium Mildly increased right atrial size. Left Atrium Normal left atrial size. Mitral Valve Structurally normal mitral valve. Mild mitral valve regurgitation. Aortic Valve No aortic valve stenosis. No aortic valve regurgitation. Tricuspid Valve Moderate tricuspid valve regurgitation. Pulmonic Valve Trace pulmonary valve regurgitation. Pericardium Small pericardial effusion. Aorta Normal size aortic root and proximal ascending aorta. IVC Normal inferior vena cava. CONCLUSIONS 1. Moderately reduced left ventricular systolic function, EF 40%. 2. Moderately dilated right ventricle with moderately redued right ventricular contractility 3. Mild mitral regurgitation 4. Moerate tricuspid valve regurgitation. Farhan Gupta MD, FACC (Electronically Signed) Final Date: 25 November 2024 19:22 S
--- NOTE | 2024-11-25 13:44 | PM.CONSULT ---
Providers/Reason For Consult Consulting Physician/Specialty*: Farhan Gupta MD Reason for Consult*: Atrial fibrillation with rapid ventricular response Requesting Physician: Radha Abdi MD Attending Physician: Radha Abdi MD Primary Care Provider: Matias Echevarria MD History of Present Illness History of Present Illness Enrique Morales is a 74 year old male with a history of hypertension, hyperlipidemia, paroxysmal atrial fibrillation, seizure disorder with last seizure being approximately 2 years ago per the patient, coronary artery disease status post LAD stenting in 2019, chronic kidney disease, imbalance and h/o subdural hemorrhage per the records. The patient presented to the emergency room for palpitations. Patient was found to be in atrial fibrillation with rapid ventricular response with heart rate of 160 bpm. The patient was given IV diltiazem and digoxin with no significant improvement in the heart rate. Therefore IV amiodarone was then added. This morning when I saw the patient the patient's heart rate was running in the 70s. Blood pressure was 89/60. Patient reported feeling fine and denied shortness of breath but stated he had been having a violent cough recently and was diagnosed with pneumonia few months ago. Patient denies chest discomfort. States he is unable to get in and out of the bathtub due to imbalance and risk of falling. Review of Systems Resp: Reports: productive cough Medications/Allergies Home Medications ?Medication ?Instructions ?Recorded ?Confirmed ?Last Taken ?Type atorvastatin 40 mg tablet 40 mg PO BEDTIME #90 tabs 06/05/24 11/25/24 Unknown Rx clopidogrel 75 mg tablet 75 mg PO DAILY #90 tabs 06/05/24 11/25/24 Unknown Rx levetiracetam 1,000 mg tablet 1,000 mg PO BID #60 tabs 06/05/24 11/25/24 Unknown Rx metoprolol tartrate 25 mg tablet See Rx Instructions PO BID #90 tabs 06/05/24 11/25/24 Unknown Rx furosemide 40 mg tablet (Lasix) 40 mg PO QAM #30 tabs 08/13/24 11/25/24 Unknown Rx Allergies Allergy/AdvReac Type Severity Reaction Status Date / Time No Known Allergies Allergy Verified 11/24/24 22:36 Current Medications Generic Name Dose Route Start Last Admin Trade Name Freq PRN Reason Stop Dose Admin Clopidogrel Bisulfate 75 mg 11/25/24 09:00 08/30/25 08:23 Clopidogrel 75 Mg Tablet PO 75 mg DAILY KALPESH Administration Furosemide 40 mg 11/25/24 08:00 11/25/24 08:23 Furosemide 40 Mg Tablet PO 40 mg DAILY@0800 KALPESH Administration Heparin Sodium (Porcine) 5,000 unit 11/25/24 05:00 11/25/24 05:40 Heparin 5,000 Unit/Ml Inj 1 Ml SUBCUT 5,000 unit Q12H KALPESH Administration Diltiazem HCl 100 mg/ Sodium 100 mls @ 0 mls/hr 11/24/24 23:30 11/25/24 12:48 Chloride IV 2.5 mg/hr .Q0M KALPESH 2.5 mls/hr Protocol Titration Per Protocol Amiodarone HCl/Dextrose 360 mg in 200 mls @ 0 mls/hr 11/25/24 05:00 11/25/24 10:50 Nexterone IV 0.5 mg/min .Q0M KALPESH 16.67 mls/hr Protocol Administration Per Protocol Sodium Chloride 1,000 mls @ 75 mls/hr 11/25/24 05:15 11/25/24 05:40 Sodium Chloride 0.9% IV 75 mls/hr .[id number] KALPESH Administration Levetiracetam 1,000 mg 11/25/24 09:00 11/25/24 08:22 Levetiracetam 500 Mg/5 Ml Udc PO 1,000 mg BID KALPESH Administration Metoprolol Tartrate 12.5 mg 11/25/24 09:00 11/25/24 09:16 Metoprolol Tartrate 25 Mg Tablet PO 12.5 mg BID@0900,2100 KALPESH Administration Pantoprazole Sodium 40 mg 11/25/24 09:00 11/25/24 08:[address] 40 Mg Tablet PO 40 mg DAILY KALPESH Administration PFSH Acute PFSH: Medical History (Updated 11/25/24 @ 13:57 by Farhan Gupta MD) Subdural hemorrhage Presence of stent in LAD coronary artery Coronary artery disease Pneumonia Atrial fibrillation Mixed hyperlipidemia Seizure disorder Surgical History Hx of tonsillectomy History of appendectomy Family History Mother , AT AGE 91 Cancer Father , AT AGE 83 Pneumonia Social History Smoking and tobacco/nicotine status: never used tobacco/nicotine Alcohol intake: never Substance/Drug Use: never Vitals/I&O/Wt Last Vital Signs Temp 97.9 F 11/25/24 08:06 Pulse 79 11/25/24 12:00 Resp 16 11/25/24 12:00 BP 101/67 11/25/24 12:00 Pulse Ox 95 11/25/24 12:00 O2 Del Method Room Air 11/25/24 12:00 11/24/24 11/25/24 11/25/24 22:59 06:59 14:59 Intake Total 0 / 0 1016.667 / 1016.667 315.122 / 315.122 Output Total 225 / 225 300 / 300 Balance 0 / 0 791.667 / 791.667 15.122 / 15.122 Weight last 48 hrs Weight 171 lb 15.369 oz Weight 193 lb Physical Exam Narrative: General: In no acute distress Neck: No jugular venous distention or carotid bruits Heart: Irregular rate and rhythm. Lungs: Normal respiratory effort with no use of intercostal muscles, clear lungs sounds to auscultation Extremities: No lower extremity edema Neuro: Alert and oriented x 3 Data 11/25/24 04:37 11/25/24 04:37 Other data: I personally reviewed 3 EKGs 1 from yesterday and 2 from today. All EKGs reveal atrial fibrillation with rapid ventricular response with an incomplete right bundle branch block. No significant ST-T wave abnormalities. A&P Assessment and plan 1. Paroxysmal atrial fibrillation: - Persistent A-fib since admission - Initially heart rates as high as 160, now in the 70s on IV Dilt and IV amiodarone - Due to hypotension with the IV diltiazem, reduce IV Dilt to 2.5 mg/h from 5 mg/h - Patient not a good anticoagulation candidate due to imbalance and history of subdural hemorrhage - Will need to set patient up for Watchman evaluation as an outpatient - continue plavix - Obtain echocardiogram-ordered -Continue IV amiodarone - Will need screening stress test rule out inducible ischemia. Can be done as an outpatient 2. Coronary artery disease: ? Status post LAD stenting - Continue Plavix and atorvastatin 3. Hypertension: - Low blood pressure on IV Dilt - Decrease IV Dilt to 2.5 mg/h. Stop IV Dilt if blood pressure consistently less than 100/60 PDMP PDMP Reviewed: Not Reviewed Coding Level of Care Code 28450 Diagnoses Paroxysmal atrial fibrillation I48.0 Coronary artery disease I25.10 Hypertension I10
--- NOTE | 2024-11-25 13:45 | P.PN_ITS ---
Subjective 2 Subjective: Seen this morning Currently in A-fib On amiodarone Cardizem. Denies a history of COPD. Vitals/I&O/Wt Last Vital Signs Temp 97.9 F 11/25/24 08:06 Pulse 79 11/25/24 12:00 Resp 16 11/25/24 12:00 BP 101/67 11/25/24 12:00 Pulse Ox 95 11/25/24 12:00 O2 Del Method Room Air 11/25/24 12:00 11/24/24 11/25/24 11/25/24 22:59 06:59 14:59 Intake Total 0 / 0 1016.667 / 1016.667 315.122 / 315.122 Output Total 225 / 225 300 / 300 Balance 0 / 0 791.667 / 791.667 15.122 / 15.122 Weight last 48 hrs Weight 78 kg Weight 87.543 kg Physical Exam 2 Narrative: General: Alert oriented x3, patient seen sitting up in bed appearing comfortable at this time. HEENT: Normocephalic, atraumatic, EOMI, conversational dyspnea, breathing room air Cardio: Irregularly irregular, normal S1-S2, Respiratory: Clear to auscultation bilaterally no wheezes no rhonchi. GI: Abdomen soft, nontender, bowel sounds + Extremities: Pulses 2+, no edema bilateral lower extremities Data 11/25/24 04:37 11/25/24 04:37 A&P Assessment and plan 1. SVT (supraventricular tachycardia): 2. Atrial fibrillation with rapid ventricular response: 3. Acute renal failure: 4. PAD (peripheral artery disease): 5. Coronary artery disease: 6. Dehydration: Plan: #1 SVT/atrial fibrillation with rapid ventricular rate - Admit to ICU for optimization for tachyarrhythmia - Patient with SVT with aberrancy and terminate into atrial fibrillation with rapid ventricular rate - Could not respond much to Cardizem boluses Cardizem drip digoxin IV metoprolol then finally initiated on amiodarone with drip per protocol - Will continue to treat and optimize - Patient denies any shortness of breath denies any chest pain totally asymptomatic - No febrile illness white count normal chest x-ray normal - Gentle hydration with normal saline - Cardiology consulted - Follow-up on echocardiogram #2 Acute renal failure -Gentle hydration for optimization #3 Chronic medical problem such as PAD, CAD,-continue home statins and antiplatelets such as Plavix #4 GI and DVT prophylaxis in place 11/25/2024 Continue atorvastatin Plavix, Keppra Continue amiodarone drip at this time Continue on Cardizem drip. Await cardiology recommendations Continue on heparin drip. Continue metoprolol 12.5 twice daily. Cardiology consulted. PDMP PDMP Reviewed: Not Reviewed Attestations 2 Medical Necessity Statement*: A-fib with RVR Coding Level of Care Code Acute Code for Chg Fwd Diagnoses SVT (supraventricular tachycardia) I47.10 Atrial fibrillation with rapid ventricular response I48.91 Acute renal failure N17.9 PAD (peripheral artery disease) I73.9 Coronary artery disease I25.10 Dehydration E86.0
[2024-11-25] MEDS: dilTIAZem 100 MG in sodium chloride 0.9% (add-van) 100 ML IV (19:44)
[2024-11-25] MEDS: piperacillin-tazobactam 3.375 GM in sodium chloride 0.9% (plus) 50 ML IV (22:53)
[2024-11-25 23:20] LABS: Lactate (Lactic Acid level) 2.2 mmol/L (0.5-2.2); Magnesium 1.9 mg/dL (1.7-2.3)
[2024-11-26] VITALS (25 sets, daily range): BP systolic 114–154; BP diastolic 72–99; PULSE 63–74; RESP 0–29; TEMP 36.6–37.2; O2SAT 90–95; BMI 24.9
[2024-11-26 03:49] LABS: Hematocrit 41.1 % (37-53); Hemoglobin 13.70 g/dL (11.27-16.99); Mean Corpuscular HGB Conc 33.3 g/dL (30-55); Mean Corpuscular Hemoglobin 29.3 pg (27-33); Mean Corpuscular Volume 88.0 fl (82-101); Platelet Count 147 10^3/cmm (157-399); Red Blood Count 4.67 10^6/uL (3.85-5.65); White Blood Count 6.04 10^3/uL (3.29-11.43)
[2024-11-26 04:20] LABS: Anion Gap 19.7 (5-19); Blood Urea Nitrogen 32 mg/dL (8-23); Calcium 8.1 mg/dL (8.5-10.5); Carbon Dioxide 22 mmol/L (22-29); Chloride 94 mmol/L (98-107); Glucose 117 mg/dL (65-115); Magnesium 1.8 mg/dL (1.7-2.3); Osmolality Calculated 280 mOsm/kg (285-295); Potassium 4.7 mmol/L (3.5-5.1); Sodium 131 mmol/L (136-145)
[2024-11-26 04:21] LABS: Slide Review Slide Review Perform
[2024-11-26 04:26] LABS: Alanine Aminotransferase 33 U/L (0-41); Albumin Level 3.4 g/dL (3.5-5.2); Alkaline Phosphatase 63 U/L (40-130); Anion Gap 19.9 (5-19); Aspartate Amino Transferase 48 U/L (0-40); Blood Urea Nitrogen 31 mg/dL (8-23); Calcium 8.2 mg/dL (8.5-10.5); Carbon Dioxide 22 mmol/L (22-29); Chloride 95 mmol/L (98-107); Globulin 3.2 g/dL (1.3-4.6); Glucose 115 mg/dL (65-115); Osmolality Calculated 281 mOsm/kg (285-295); Potassium 4.9 mmol/L (3.5-5.1); Sodium 132 mmol/L (136-145); Total Protein 6.6 g/dL (6.6-8.7)
[2024-11-26 04:46] LABS: Creatinine Clr Calc Pharmacy 38.3079
[2024-11-26 04:47] LABS: Creatinine Clr Calc Pharmacy 40.5613
[2024-11-26] MEDS: heparin 5,000 unit/mL INJ 1 mL 5000 UNIT SUBCUT ×2 (05:09→16:28)
[2024-11-26] MEDS: piperacillin-tazobactam 3.375 GM in sodium chloride 0.9% (plus) 50 ML IV ×3 (05:10→20:30)
[2024-11-26 05:31] LABS: Absolute Segmented Neutrophil 4.4 10/cmm (1.6-7.1); Atypical Lymphs 3.0 % (0-5); Band Neutrophils Absolute 0.2 10^3/cmm (0.0-1.2); Total Cells Counted 100 (0-100)
--- NOTE | 2024-11-26 09:04 | CTR_ITS ---
PROCEDURE INFORMATION: Exam: CT Chest Without Contrast; Diagnostic Exam date and time: 11/26/2024 9:41 AM Age: 74 years old Clinical indication: Other: R/O infection TECHNIQUE: Imaging protocol: Diagnostic computed tomography of the chest without contrast. Radiation optimization: All CT scans at this facility use at least one of these dose optimization techniques: automated exposure control; mA and/or kV adjustment per patient size (includes targeted exams where dose is matched to clinical indication); or iterative reconstruction. Other technique: CTA of the Chest was performed along with routine CT imaging of the abdomen and pelvis in the portal venous phase. Sagittal and coronal reconstructions are provided. ORAL CONTRAST: NONE COMPARISON: CT angio chest PE protcl [id number] 08/13/2024 12:23 PM RADIATION DOSE METRICS: Total DLP (mGy-cm): 438.47 FINDINGS: Lungs: Cluster of for soft tissue nodular opacities are identified in the inferior left upper lobe, largest measuring 5.1 mm in diameter. A 2nd cluster of somewhat ill-defined nodular opacities are seen in the posterolateral left lower lobe (5/50), the largest measuring 5.4 mm in diameter. Some additional ill-defined nodular opacities are seen in the superior segment of the left lower lobe (5/27, 19). A minimal area of focal infiltrate is also suggested in the inferior right upper lobe (5/32).) There is focal consolidation seen in the lateral sulcus of the right lung. The punctate granulomatous calcification is seen in the right lower lobe, unchanged from the prior study, located in a subpleural location (4/50). Stable focal emphysematous changes are identified in the right middle lobe. The central airway is normal. Pleural spaces: No pneumothorax. Small bilateral pleural effusions are present, decreased in size from prior study. Heart: The heart size is enlarged. There is a small pericardial effusion. There are coronary artery atherosclerotic changes present. A proximal LAD stent is also suggested. Lymph nodes: Mediastinal lymphadenopathy is again seen within the aortopulmonary window index node today having a short axis of 14.4 mm compared with 13.6 mm on the prior study. Vasculature: No aortic aneurysm or dissection. Kidneys: Upper Abdomen: Limited visualized upper abdomen there has been the interval development of a small amount of ascites seen ventral to the perirenal fat. The gallbladder wall is ill-defined and there is some pericholecystic fluid present raising the possibility of developing cholecystitis. Bones/joints: Unremarkable. No acute fracture. Soft tissues: Unremarkable. CT/CT chest wo con [id number] IMPRESSION: 1. Interval decrease in bilateral pleural effusions. 2. Multiple new clusters of ill-defined soft tissue nodules in both lungs as detailed above. Differential considerations include multifocal pneumonia, septic emboli, or new aggressive metastatic disease. 3. Focal airspace consolidation, lateral right lung sulcus consistent with pneumonia. 4. New minimal ascites. 5. Poorly definition gallbladder wall with pericholecystic fluid. The fluid may be a manifestation of the ascites or indicate acalculous cholecystitis. Clinical correlation is suggested and correlation with ultrasound. 6. Slight increase in mediastinal lymphadenopathy.
--- NOTE | 2024-11-26 12:17 | P.PN_ITS ---
Subjective 2 Subjective: Seen this morning. Overnight patient was made n.p.o. in anticipation of procedure today however nursing staff unclear of this including the patient. There was suspicion of aspiration? However patient able to swallow okay this morning. Suspicion of pneumonia by overnight hospitalist possibly therefore Zosyn started. Patient has converted to sinus rhythm. Currently on amiodarone drip. Bandemia present in CBC this morning 4% bands. Creatinine 1.7. Total bili 1.8. Echocardiogram completed which shows . Moderately reduced left ventricular systolic function, EF 40%. 2. Moderately dilated right ventricle with moderately redued right ventricular contractility 3. Mild mitral regurgitation 4. Moerate tricuspid valve regurgitation. Vitals/I&O/Wt Last Vital Signs Temp 98.7 F 11/26/24 04:00 Pulse 64 11/26/24 08:00 Resp 28 H 11/26/24 08:00 BP 136/75 11/26/24 08:00 Pulse Ox 90 11/26/24 08:00 O2 Del Method Room Air 11/25/24 18:31 11/25/24 11/26/24 11/26/24 22:59 06:59 14:59 Intake Total 1140.459 / 1455.581 50 / 6825.502 3690.373 / 1274.373 Output Total 300 / 600 600 / 1200 Balance 840.459 / 855.581 -550 / 413.407 5428.373 / 1274.373 Weight last 48 hrs Weight 81 kg Weight 78 kg Weight 87.543 kg Physical Exam 2 Narrative: General: Alert oriented x3, patient seen sitting up in bed appearing comfortable at this time. HEENT: Normocephalic, atraumatic, EOMI, breathing room air Cardio: Irregularly irregular, normal S1-S2, Respiratory: Clear to auscultation bilaterally no wheezes no rhonchi. GI: Abdomen soft, nontender, bowel sounds + Extremities: no edema bilateral lower extremities Data 11/26/24 02:50 11/26/24 02:50 A&P Assessment and plan 1. SVT (supraventricular tachycardia): 2. Atrial fibrillation with rapid ventricular response: 3. Acute renal failure: 4. PAD (peripheral artery disease): 5. Coronary artery disease: 6. Dehydration: Plan: #1 SVT/atrial fibrillation with rapid ventricular rate - Admit to ICU for optimization for tachyarrhythmia - Patient with SVT with aberrancy and terminate into atrial fibrillation with rapid ventricular rate - Could not respond much to Cardizem boluses Cardizem drip digoxin IV metoprolol then finally initiated on amiodarone with drip per protocol - Will continue to treat and optimize - Patient denies any shortness of breath denies any chest pain totally asymptomatic - No febrile illness white count normal chest x-ray normal - Gentle hydration with normal saline - Cardiology consulted - Follow-up on echocardiogram #2 Acute renal failure -Gentle hydration for optimization #3 Chronic medical problem such as PAD, CAD,-continue home statins and antiplatelets such as Plavix #4 GI and DVT prophylaxis in place 11/25/2024 Continue atorvastatin Plavix, Keppra Continue amiodarone drip at this time Continue on Cardizem drip. Await cardiology recommendations Continue on heparin drip. Continue metoprolol 12.5 twice daily. Cardiology consulted. 11/26/2024 CT Chest shows: 1. Interval decrease in bilateral pleural effusions. 2. Multiple new clusters of ill-defined soft tissue nodules in both lungs as detailed above. Differential considerations include multifocal pneumonia, septic emboli, or new aggressive metastatic disease. 3. Focal airspace consolidation, lateral right lung sulcus consistent with pneumonia. 4. New minimal ascites. 5. Poorly definition gallbladder wall with pericholecystic fluid. The fluid may be a manifestation of the ascites or indicate acalculous cholecystitis. Clinical correlation is suggested and correlation with ultrasound. 6. Slight increase in mediastinal lymphadenopathy. Chest evaluation Clinical signs. Check sputum culture Gram stain. Check blood cultures Appreciate cardiology recommendations Echo does not show any vegetations. Possibly we may need to do a ARIS for differential of septic emboli. Query of aggressive metastatic disease?. Will need pulmonology consultation. PDMP PDMP Reviewed: Not Reviewed Attestations 2 Medical Necessity Statement*: Pneumonia, A-fib with RVR Diagnoses SVT (supraventricular tachycardia) I47.10 Atrial fibrillation with rapid ventricular response I48.91 Acute renal failure N17.9 PAD (peripheral artery disease) I73.9 Coronary artery disease I25.10 Dehydration E86.0
--- NOTE | 2024-11-26 12:41 | P.PN_ITS ---
Subjective 2 Subjective: Congested cough for many days Feels like he can't cough up the phlegm Denies CP and SOB in bed No palpitations CT chest with multifocal PNA versus malignancy Vitals/I&O/Wt Last Vital Signs Temp 98.7 F 11/26/24 04:00 Pulse 66 11/26/24 12:30 Resp 26 H 11/26/24 12:30 BP 137/93 11/26/24 12:30 Pulse Ox 93 11/26/24 12:30 O2 Del Method Room Air 11/25/24 18:31 11/25/24 11/26/24 11/26/24 22:59 06:59 14:59 Intake Total 1140.459 / 1455.581 50 / 9227.563 8218.373 / 1274.373 Output Total 300 / 600 600 / 1200 300 / 300 Balance 840.459 / 855.581 -550 / 305.581 974.373 / 974.373 Weight last 48 hrs Weight 178 lb 9.191 oz Weight 171 lb 15.369 oz Weight 193 lb Physical Exam 2 Narrative: General: In no acute distress Neck: No jugular venous distention or carotid bruits Heart: Regular rate and rhythm. Lungs: Normal respiratory effort with no use of intercostal muscles, clear lungs sounds to auscultation Extremities: No lower extremity edema Neuro: Alert and oriented x 3 Data 11/26/24 02:50 11/26/24 02:50 Other data: Echo 11/25/24: 1. Moderately reduced left ventricular systolic function, EF 40%. 2. Moderately dilated right ventricle with moderately redued right ventricular contractility 3. Mild mitral regurgitation 4. Moerate tricuspid valve regurgitation. A&P Assessment and plan 1. Paroxysmal atrial fibrillation: - RVR on admission - converted to NSR with IV amio and IV dilt - Patient not a good anticoagulation candidate due to imbalance and history of subdural hemorrhage - Will need to set patient up for Watchman evaluation as an outpatient if lung CT pneumonia and not extensive lung cancer with reduce life expectancy - continue plavix -change IV amio to 400mg po bid - Metoprolol xl 25mg daily 2. Coronary artery disease: ? Status post distant LAD stenting - denies cp - Continue Plavix, metoprolol and atorvastatin 3. Hypertension: - controlled - Low dose IV dilt stopped due to hypotension 4. Cardiomyopathy: - Moderate RV dilation and moderate biventricular hypokinesis, LV EF 40% -question accuracy of echo in measuring pulmonary pressure. Suspect does have pulmonary HTN due to degree of RV dilatation and global RV hypokinesis - no prior echo for comparison - unclear if ischemic or nonischemic - will request LHC and RHC prior to discharge if we can get Cr better - receiving IVF -repeat bmp in am -change metoprolol tartrate to metoprolol succinate 25mg daily - will advance GDMT as BP will tolerate PDMP PDMP Reviewed: Not Reviewed Attestations 2 Medical Necessity Statement*: needs another 2 midnights of hospitalization for afib with rvr, cardiomyopathy and PNA workup and treatment Coding Level of Care Code 86314 Diagnoses Paroxysmal atrial fibrillation I48.0 Coronary artery disease I25.10 Hypertension I10 Cardiomyopathy I42.9
--- NOTE | 2024-11-26 14:38 | PC.NURSE ---
report phoned to ailin morrison in [facility]pt transferred to room 108 via w/c at this time.pt remains in [facility] at this time.
[2024-11-26] MEDS: metoprolol succinate ER (24 HR) 25 mg Tablet PO (20:25)
[2024-11-27] VITALS (9 sets, daily range): BP systolic 121–161; BP diastolic 74–102; PULSE 55–69; RESP 16–25; TEMP 36.4–37; O2SAT 92–95
[2024-11-27 05:00] LABS: Hematocrit 38.3 % (37-53); Hemoglobin 12.70 g/dL (11.27-16.99); Mean Corpuscular HGB Conc 33.2 g/dL (30-55); Mean Corpuscular Hemoglobin 29.3 pg (27-33); Mean Corpuscular Volume 88.2 fl (82-101); Platelet Count 129 10^3/cmm (157-399); Red Blood Count 4.34 10^6/uL (3.85-5.65); White Blood Count 6.57 10^3/uL (3.29-11.43)
[2024-11-27 05:29] LABS: Alanine Aminotransferase 29 U/L (0-41); Albumin Level 3.1 g/dL (3.5-5.2); Alkaline Phosphatase 58 U/L (40-130); Anion Gap 14.8 (5-19); Aspartate Amino Transferase 45 U/L (0-40); Blood Urea Nitrogen 22 mg/dL (8-23); Calcium 8.0 mg/dL (8.5-10.5); Carbon Dioxide 23 mmol/L (22-29); Chloride 98 mmol/L (98-107); Globulin 3.2 g/dL (1.3-4.6); Glucose 90 mg/dL (65-115); Magnesium 1.8 mg/dL (1.7-2.3); Osmolality Calculated 277 mOsm/kg (285-295); Potassium 3.8 mmol/L (3.5-5.1); Sodium 132 mmol/L (136-145); Total Protein 6.3 g/dL (6.6-8.7)
[2024-11-27 05:32] LABS: Slide Review Slide Review Perform
[2024-11-27 05:33] LABS: Creatinine Clr Calc Pharmacy 46.6917
[2024-11-27] MEDS: piperacillin-tazobactam 3.375 GM in sodium chloride 0.9% (plus) 50 ML IV ×3 (05:34→21:21)
[2024-11-27] MEDS: heparin 5,000 unit/mL INJ 1 mL 5000 UNIT SUBCUT ×2 (05:36→16:14)
[2024-11-27 06:04] LABS: Absolute Segmented Neutrophil 4.7 10/cmm (1.6-7.1); Atypical Lymphs 3.0 % (0-5); Band Neutrophils Absolute 0.5 10^3/cmm (0.0-1.2); Burr Cells 1+; Poikilocytosis 1+; Smudge Cells Trace; Total Cells Counted 100 (0-100)
[2024-11-27 06:05] LABS: Acanthocytes Trace
--- NOTE | 2024-11-27 11:42 | PC.SOCIAL ---
*IMM* Completed, initialed, dated and timed in the chart. Copy received by patient.
--- NOTE | 2024-11-27 12:17 | P.PN_ITS ---
Subjective 2 Subjective: Cough improved today Vitals/I&O/Wt Last Vital Signs Temp 98.6 F 11/27/24 12:00 Pulse 60 11/27/24 12:00 Resp 24 H 11/27/24 12:00 BP 138/79 11/27/24 12:00 Pulse Ox 94 11/27/24 12:00 O2 Del Method Room Air 11/27/24 12:00 11/26/24 11/27/24 11/27/24 22:59 06:59 14:59 Intake Total 1354.75 / 3069.123 50 / 3119.123 1170 / 1170 Output Total 450 / 450 Balance 1354.75 / 2769.123 50 / 2819.123 720 / 720 Weight last 48 hrs Weight 184 lb 4.8 oz Weight 178 lb 9.191 oz Physical Exam 2 Narrative: General: In no acute distress Neck: No jugular venous distention or carotid bruits Heart: Regular rate and rhythm. Lungs: Normal respiratory effort with no use of intercostal muscles, bilateral rhonchi in bilateral bases - unchanged from yesterday Extremities: No lower extremity edema Neuro: Alert and oriented x 3 Data 11/27/24 04:23 11/27/24 04:23 Micro: Microbiology 11/26/24 13:30 Gram Stain - Final Sputum - Expectorated Sputum Sputum Culture - Preliminary 11/26/24 13:28 Blood Culture - Preliminary Blood SPECIMEN COLLECTED 11/26/24 13:26 Blood Culture - Preliminary Blood SPECIMEN COLLECTED A&P Assessment and plan 1. Paroxysmal atrial fibrillation: - RVR on admission - converted to NSR with IV amio and IV dilt - remains in NSR - Dilt stopped due to lowish BP - Patient not a good anticoagulation candidate due to imbalance and history of subdural hemorrhage - Will need to set patient up for Watchman evaluation as an outpatient if lung CT pneumonia and not extensive lung cancer with reduce life expectancy - continue plavix -amio new this admission and not reason for abnormal chest CT findings - Continue amio 400mg bid - Flecainide contraindicated in CAD pts, and sotalol not recommended in patient with CKD - Continue Metoprolol xl 25mg daily 2. Coronary artery disease: ? Status post distant LAD stenting - denies cp - Continue Plavix, metoprolol and atorvastatin 3. Hypertension: - controlled - continue metoprolol 4. Cardiomyopathy: - Moderate RV dilation and moderate biventricular hypokinesis, LV EF 40% -question accuracy of echo in measuring pulmonary pressure. Suspect does have pulmonary HTN due to degree of RV dilatation and global RV hypokinesis unless has had an RV infarct in the past or a new nonischemic cardiomyopathy - no prior echo for comparison - will request LHC and RHC prior to discharge if we can get Cr better-Cr improving with IVF and improved hypotension and anglican of NSR - small ascites and small vicente pleural effusion - Stop IVF after 1 more liter today -repeat bmp in am -continue metoprolol succinate 25mg daily - will advance GDMT once renal function further improved 5. Abnormal chest CT: - differential dx by radiologist includes multilobar PNA, septic emboli, malignancy - No vegetations or mass on transthoracic echo - will be happy to do ARIS if deemed necessary by Pulmonology - pulmonology consult tomorrow -IV abx per primary team PDMP PDMP Reviewed: Not Reviewed Attestations 2 Medical Necessity Statement*: anticipate 2 more midnights of hospitalization due to abnormal chest CT and amio loading for afib Coding Level of Care Code 76065 Diagnoses Paroxysmal atrial fibrillation I48.0 Coronary artery disease I25.10 Hypertension I10 Cardiomyopathy I42.[address] R93.89
[2024-11-27 15:04] LABS: Procalcitonin 0.18 ng/mL (0-0.5)
--- NOTE | 2024-11-27 15:13 | P.PN_ITS ---
Subjective 2 Subjective: Patient was seen this morning, does have a cough, no fevers, no chills, no lightheadedness, no dizziness, Vitals/I&O/Wt Last Vital Signs Temp 98.6 F 11/27/24 12:00 Pulse 59 L 11/27/24 14:00 Resp 24 H 11/27/24 12:00 BP 138/79 11/27/24 12:00 Pulse Ox 94 11/27/24 12:00 O2 Del Method Room Air 11/27/24 12:00 11/27/24 11/27/24 11/27/24 06:59 14:59 22:59 Intake Total 50 / 3119.123 1486.25 / 1486.25 Output Total 450 / 450 Balance 50 / 2819.123 1036.25 / 1036.25 Weight last 48 hrs Weight 83.597 kg Weight 81 kg Physical Exam 2 Const: COMMON NORMALS: no acute distress and patient oriented x3 Resp: COMMON NORMALS: normal respiratory effort, No retractions, No use of accessory muscles and clear to auscultation bilaterally AUSCULTATION: clear to auscultation bilaterally Cardio: COMMON NORMALS: regular rate, regular rhythm, S1 normal heart sound present and S2 normal heart sound present RATE: regular rate RHYTHM: r egular rhythm HEART SOUNDS: S1 normal heart sound present and S2 normal heart sound present GI: COMMON NORMALS: Normal to inspection, nondistended, normoactive bowel sounds present and non-tender Extremity: COMMON NORMALS: no pedal edema Neuro: COMMON NORMALS: patient oriented x3 Psych: COMMON NORMALS: mental status grossly normal Data 11/27/24 04:23 11/27/24 04:23 Micro: Microbiology 11/26/24 13:28 Blood Culture - Preliminary Blood NEGATIVE TO DATE 11/26/24 13:26 Blood Culture - Preliminary Blood NEGATIVE TO DATE 11/26/24 13:30 Gram Stain - Final Sputum - Expectorated Sputum Sputum Culture - Preliminary A&P Assessment and plan 1. Paroxysmal atrial fibrillation: - Continue amio 400mg bid - Continue Metoprolol 25 mg daily - Not on anticoagulant therapy given history of subdural hematoma -Follow-up with cardiology as outpatient for consideration of Watchman 2. Coronary artery disease: ? History of LAD stenting - Continue Plavix, metoprolol and atorvastatin 3. Hypertension: 4. Cardiomyopathy: CONCLUSIONS 1. Moderately reduced left ventricular systolic function, EF 40%. 2. Moderately dilated right ventricle with moderately redued right ventricular contractility 3. Mild mitral regurgitation 4. Moderate tricuspid valve regurgitation. - Cardiology consulted - Medically manage 5. Abnormal chest CT: 6. Multifocal pneumonia: CT of the chest Lungs: Cluster of for soft tissue nodular opacities are identified in the inferior left upper lobe, largest measuring 5.1 mm in diameter. A 2nd cluster of somewhat ill-defined nodular opacities are seen in the posterolateral left lower lobe (5/50), the largest measuring 5.4 mm in diameter. Some additional ill-defined nodular opacities are seen in the superior segment of the left lower lobe (5/27, 19). A minimal area of focal infiltrate is also suggested in the inferior right upper lobe (5/32).) There is focal consolidation seen in the lateral sulcus of the right lung. The punctate granulomatous calcification is seen in the right lower lobe, unchanged from the prior study, located in a subpleural location (4/50). Stable focal emphysematous changes are identified in the right middle lobe. The central airway is normal. Pleural spaces: No pneumothorax. Small bilateral pleural effusions are present, decreased in size from prior study. Heart: The heart size is enlarged. There is a small pericardial effusion. There are coronary artery atherosclerotic changes present. A proximal LAD stent is also suggested. Lymph nodes: Mediastinal lymphadenopathy is again seen within the aortopulmonary window index node today having a short axis of 14.4 mm compared with 13.6 mm on the prior study. Vasculature: No aortic aneurysm or dissection. - Procal 0.18, CRP 42.2, sed rate 15 - CT angiogram of the chest 08/13/2024 Pulmonary arteries: Normal. No pulmonary emboli. There is slightly suboptimal visualization of the lower lobe pulmonary arteries, right worse than left, due to decreased/delayed vascular contrast opacification. Aorta: Unremarkable. No aortic aneurysm. No aortic dissection. Lungs: Right lower lobe atelectasis/consolidation inferiorly. Cystic lesion with bronchiectasis in the right middle lobe measuring 4 x 4.4 cm. Pleural spaces: [id number] bilateral pleural effusions, [id number]-left. Heart: Unremarkable. No cardiomegaly. No pericardial effusion. Lymph nodes: AP window node measures 1.2 cm in short axis other shotty lymph nodes measure less than 1 cm in the prevascular and AP window. Right hilar node measures 1.3 cm.. - Patient had a ER visit 08/13, was discharged on antibiotics, diuretics -Cardiac echocardiogram does not show any valvular vegetations -Differential is infection versus septic emboli versus malignancy Plan - Continue antibiotics for now - Follow cultures -Fungal studies ordered - Will discuss case with pulmonary HANS on CKD, creatinine 1.5, monitor PDMP PDMP Reviewed: Not Reviewed Attestations 2 Medical Necessity Statement*: Patient requires hospitalization for multiple pneumonia, atrial fibrillation Diagnoses Paroxysmal atrial fibrillation I48.0 Coronary artery disease I25.10 Hypertension I10 Cardiomyopathy I42.[address] R93.89 Multifocal pneumonia J18.8
[2024-11-27 17:41] LABS: MRSA PCR OZH (swab) NOT DETECTED (Negative)
[2024-11-27] MEDS: MELATONIN 3 MG TABLET 6 MG PO (21:21)
[2024-11-28 03:22] LABS: Hematocrit 38.2 % (37-53); Hemoglobin 12.60 g/dL (11.27-16.99); Mean Corpuscular HGB Conc 33.0 g/dL (30-55); Mean Corpuscular Hemoglobin 29.3 pg (27-33); Mean Corpuscular Volume 88.8 fl (82-101); Nucleated Red Blood Cells % 0 %; Platelet Count 150 10^3/cmm (157-399); Red Blood Count 4.30 10^6/uL (3.85-5.65); White Blood Count 6.59 10^3/uL (3.29-11.43)
[2024-11-28 03:54] LABS: NT Pro B Type Natriuretic Pept 5579 pg/mL (0-450); Procalcitonin 0.12 ng/mL (0-0.5)
[2024-11-28 04:00] VITALS: BP 151/87; PULSE 61; RESP 14; TEMP 36.4; O2SAT 96
[2024-11-28 04:00] LABS: Anion Gap 13.9 (5-19); Blood Urea Nitrogen 20 mg/dL (8-23); Calcium 8.0 mg/dL (8.5-10.5); Carbon Dioxide 23 mmol/L (22-29); Chloride 97 mmol/L (98-107); Creatinine Clr Calc Pharmacy 50.6966; Glucose 93 mg/dL (65-115); Osmolality Calculated 272 mOsm/kg (285-295); Potassium 3.9 mmol/L (3.5-5.1); Sodium 130 mmol/L (136-145)
[2024-11-28 04:16] LABS: Slide Review Slide Review Perform
[2024-11-28] MEDS: heparin 5,000 unit/mL INJ 1 mL 5000 UNIT SUBCUT ×2 (05:00→16:36)
[2024-11-28] MEDS: piperacillin-tazobactam 3.375 GM in sodium chloride 0.9% (plus) 50 ML IV ×3 (05:01→21:41)
[2024-11-28 07:24] VITALS: BP 137/78; PULSE 66; RESP 25; TEMP 36.9; O2SAT 91
[2024-11-28] MEDS: metoprolol succinate ER (24 HR) 25 mg Tablet PO (07:59)
--- NOTE | 2024-11-28 08:56 | P.PN_ITS ---
<Statement entered by Marvel Orellana MD - 12/11/24 19:59> Patient was evaluated and cared for in conjunction with an advanced practice practitioner. I personally examined the patient and reviewed the chart and all pertinent data including imaging, telemetry, and laboratory results. I discussed the patient in detail with the advanced practice practitioner. Please see their note for complete H&P testing result and agreed upon plan of care for the patient. Subjective 2 Subjective: He has done well overnight, no chest pain or shortness of breath. Vitals/I&O/Wt Last Vital Signs Temp 98.4 F 11/28/24 07:24 Pulse 66 11/28/24 07:24 Resp 25 H 11/28/24 07:24 BP 137/78 11/28/24 07:24 Pulse Ox 91 11/28/24 07:24 O2 Del Method Room Air 11/28/24 04:00 11/27/24 11/28/24 11/28/24 22:59 06:59 14:59 Intake Total 290 / 1946.25 170 / 1946.25 480 / 480 Output Total 250 / 700 0 / 700 Balance 40 / 1246.25 170 / 1246.25 480 / 480 Weight last 48 hrs Weight 184 lb 6.4 oz Weight 184 lb 4.8 oz Physical Exam 2 Const: COMMON NORMALS: no acute distress and patient oriented x3 GENERAL APPEARANCE: cooperative and comfortable ORIENTATION/CONSCIOUSNESS: Yes awake, Yes oriented to person, Yes oriented to place and Yes oriented to time Chest: COMMONS NORMALS: normal inspection of the chest and normal palpation of entire chest wall CHEST: Yes Symmetrical chest wall rise Resp: COMMON NORMALS: normal respiratory effort, No retractions, No use of accessory muscles and clear to auscultation bilaterally EFFORT & INSPECTION: Yes symmetric chest movement AUSCULTATION: clear to auscultation bilaterally Cardio: COMMON NORMALS: regular rate, regular rhythm, S1 normal heart sound present, S2 normal heart sound present, No gallops present (Cardio), No clicks present (Cardio), No murmurs present (Cardio) and No rub (Cardio) RATE: r egular rate RHYTHM: regular rhythm HEART SOUNDS: S1 normal heart sound present and S2 normal heart sound present PERIPHERAL PULSES: radial pulses present Extremity: COMMON NORMALS: no pedal edema Neuro: COMMON NORMALS: patient oriented x3 and moves all extremities S ENSORIUM/ORIENTATION: Yes oriented to person, Yes oriented to place and Yes oriented to time Data 11/28/24 02:49 11/28/24 02:49 Micro: Microbiology 11/26/24 13:28 Blood Culture - Preliminary Blood NEGATIVE TO DATE 11/26/24 13:26 Blood Culture - Preliminary Blood NEGATIVE TO DATE 11/26/24 13:30 Gram Stain - Final Sputum - Expectorated Sputum Sputum Culture - Preliminary A&P Assessment and plan 1. Paroxysmal atrial fibrillation: 2. Coronary artery disease: 3. Hypertension: 4. Cardiomyopathy: 5. Abnormal chest CT: Plan: He has new onset LV dysfunction; plan is to perform coronary angiogram in this admission for ischemic workup. Creatinine trend still improving, down to 1.4 today. Will await recommendations of pulmonology for workup of the abnormal CT scan for intermediate accountant recommendations for stroke prevention due to atrial fibrillation. He is in sinus rhythm currently. Blood pressure much improved, now 137-151/70-80. Continue Plavix, metoprolol succinate 25mg daily, atorvastatin, amiodarone 400mg BID (day 3 of oral amiodarone). PDMP PDMP Reviewed: Not Reviewed Attestations 2 Medical Necessity Statement*: ischemic workup for new onset LV dysfunction Coding Level of Care Code Acute Code for [facility] Fwd Diagnoses Paroxysmal atrial fibrillation I48.0 Coronary artery disease I25.10 Hypertension I10 Cardiomyopathy I42.[address] R93.89
[2024-11-28 12:00] VITALS: BP 123/75; PULSE 59; RESP 22; O2SAT 97
[2024-11-28 14:00] VITALS: PULSE 62
[2024-11-28 16:00] VITALS: BP 137/83; PULSE 56; RESP 20; TEMP 36.6; O2SAT 97
--- NOTE | 2024-11-28 16:29 | P.PN_ITS ---
Subjective 2 Subjective: Patient was seen this morning, does have a cough, no fevers, no chills, no nausea, no vomiting, no abdominal pain, discussed reaching out to pulmonary to have patient follow-up as outpatient for consideration of bronchoscopy, he denies any exposure to sandblasting/asbestos, significant job exposures, no known exposure to tuberculosis, no known exposure to fungal infections, no travel to the [facility] the [facility], no history hemoptysis Vitals/I&O/Wt Last Vital Signs Temp 98.4 F 11/28/24 07:24 Pulse 62 11/28/24 14:00 Resp 22 H 11/28/24 12:00 BP 123/75 11/28/24 12:00 Pulse Ox 97 11/28/24 12:00 O2 Del Method Room Air 11/28/24 04:00 11/28/24 11/28/24 11/28/24 06:59 14:59 22:59 Intake Total 170 / 1946.25 530 / 530 Output Total 0 / 700 400 / 400 Balance 170 / 1246.25 130 / 130 Weight last 48 hrs Weight 83.642 kg Weight 83.597 kg Physical Exam 2 Const: COMMON NORMALS: no acute distress and patient oriented x3 Resp: COMMON NORMALS: normal respiratory effort, No retractions, No use of accessory muscles and clear to auscultation bilaterally AUSCULTATION: clear to auscultation bilaterally Cardio: COMMON NORMALS: regular rate, regular rhythm, S1 normal heart sound present and S2 normal heart sound present RATE: regular rate RHYTHM: r egular rhythm HEART SOUNDS: S1 normal heart sound present and S2 normal heart sound present GI: COMMON NORMALS: Normal to inspection, nondistended, normoactive bowel sounds present and non-tender Extremity: COMMON NORMALS: no pedal edema Neuro: COMMON NORMALS: patient oriented x3 Psych: COMMON NORMALS: mental status grossly normal Data 11/28/24 02:49 11/28/24 02:49 Micro: Microbiology 11/26/24 13:30 Gram Stain - Final Sputum - Expectorated Sputum Sputum Culture - Final 11/26/24 13:28 Blood Culture - Preliminary Blood NEGATIVE TO DATE 11/26/24 13:26 Blood Culture - Preliminary Blood NEGATIVE TO DATE A&P Assessment and plan 1. Paroxysmal atrial fibrillation: - Continue amiodarone 400mg bid - Continue Metoprolol 25 mg daily - Not on anticoagulant therapy given history of subdural hematoma -Follow-up with cardiology as outpatient for consideration of Watchman 2. Coronary artery disease: ? History of LAD stenting - Continue Plavix, metoprolol and atorvastatin 3. Hypertension: 4. Cardiomyopathy: CONCLUSIONS 1. Moderately reduced left ventricular systolic function, EF 40%. 2. Moderately dilated right ventricle with moderately redued right ventricular contractility 3. Mild mitral regurgitation 4. Moderate tricuspid valve regurgitation. History of coronary angiogram in 2019 A high-grade stenosis in the proximal left anterior descending artery involving the ostium. Moderate stenosis in the mid circumflex artery. Moderately severe stenosis in the ostium of the first diagonal branch of the left anterior descending artery. Mild diffuse disease in the other vessels. Normal LV ejection fraction of 60%. LVEDP of 4 mmHg. Proximal Left Anterior Descending Coronary Artery was treated with two Balloon and Drug Eluting Stent. - Cardiology consulted - N.p.o. midnight, plan on coronary angiography tomorrow 5. Abnormal chest CT: 6. Multifocal pneumonia: CT of the chest Lungs: Cluster of for soft tissue nodular opacities are identified in the inferior left upper lobe, largest measuring 5.1 mm in diameter. A 2nd cluster of somewhat ill-defined nodular opacities are seen in the posterolateral left lower lobe (5/50), the largest measuring 5.4 mm in diameter. Some additional ill-defined nodular opacities are seen in the superior segment of the left lower lobe (5/27, 19). A minimal area of focal infiltrate is also suggested in the inferior right upper lobe (5/32).) There is focal consolidation seen in the lateral sulcus of the right lung. The punctate granulomatous calcification is seen in the right lower lobe, unchanged from the prior study, located in a subpleural location (4/50). Stable focal emphysematous changes are identified in the right middle lobe. The central airway is normal. Pleural spaces: No pneumothorax. Small bilateral pleural effusions are present, decreased in size from prior study. Heart: The heart size is enlarged. There is a small pericardial effusion. There are coronary artery atherosclerotic changes present. A proximal LAD stent is also suggested. Lymph nodes: Mediastinal lymphadenopathy is again seen within the aortopulmonary window index node today having a short axis of 14.4 mm compared with 13.6 mm on the prior study. Vasculature: No aortic aneurysm or dissection. - Procal 0.18, CRP 42.2, sed rate 15 - CT angiogram of the chest 08/13/2024 Pulmonary arteries: Normal. No pulmonary emboli. There is slightly suboptimal visualization of the lower lobe pulmonary arteries, right worse than left, due to decreased/delayed vascular contrast opacification. Aorta: Unremarkable. No aortic aneurysm. No aortic dissection. Lungs: Right lower lobe atelectasis/consolidation inferiorly. Cystic lesion with bronchiectasis in the right middle lobe measuring 4 x 4.4 cm. Pleural spaces: Ikhtr-ph-dzgqrwyy bilateral pleural effusions, axdds-strdjam-cjjj-left. Heart: Unremarkable. No cardiomegaly. No pericardial effusion. Lymph nodes: AP window node measures 1.2 cm in short axis other shotty lymph nodes measure less than 1 cm in the prevascular and AP window. Right hilar node measures 1.3 cm.. - Patient had a ER visit 08/13, was discharged on antibiotics, diuretics -Cardiac echocardiogram does not show any valvular vegetations -Differential is infection versus septic emboli versus malignancy Plan - Continue antibiotics for now - Follow cultures -Fungal studies ordered -No TB risk factors, no history of TB exposure, no hemoptysis, nonetheless ordered TB QuantiFERON gold, AFB smear -Ordered PCP PCR - Will discuss case with pulmonary, for bronchoscopy HANS on CKD, creatinine 1.4, monitor PDMP PDMP Reviewed: Not Reviewed Attestations 2 Medical Necessity Statement*: Patient requires hospitalization for echocardiogram with diminished ejection fraction, plans on coronary angiography, pneumonia Diagnoses Paroxysmal atrial fibrillation I48.0 Coronary artery disease I25.10 Hypertension I10 Cardiomyopathy I42.[address] R93.89 Multifocal pneumonia J18.8
[2024-11-28 20:00] VITALS: BP 137/85; PULSE 61; RESP 16; O2SAT 97
[2024-11-28] MEDS: MELATONIN 3 MG TABLET 6 MG PO (21:41)
[2024-11-29] VITALS (13 sets, daily range): BP systolic 128–157; BP diastolic 78–94; PULSE 50–80; RESP 14–34; TEMP 36–36.6; O2SAT 90–99
[2024-11-29] MEDS: piperacillin-tazobactam 3.375 GM in sodium chloride 0.9% (plus) 50 ML IV ×3 (04:50→20:50)
[2024-11-29] MEDS: heparin 5,000 unit/mL INJ 1 mL 5000 UNIT SUBCUT (04:53)
[2024-11-29 04:54] LABS: Hematocrit 40.2 % (37-53); Hemoglobin 13.20 g/dL (11.27-16.99); Mean Corpuscular HGB Conc 32.8 g/dL (30-55); Mean Corpuscular Hemoglobin 29.1 pg (27-33); Mean Corpuscular Volume 88.7 fl (82-101); Nucleated Red Blood Cells % 0 %; Platelet Count 154 10^3/cmm (157-399); Red Blood Count 4.53 10^6/uL (3.85-5.65); White Blood Count 6.65 10^3/uL (3.29-11.43)
[2024-11-29 05:31] LABS: NT Pro B Type Natriuretic Pept 6052 pg/mL (0-450); Procalcitonin 0.10 ng/mL (0-0.5)
[2024-11-29 05:40] LABS: Slide Review Slide Review Perform
[2024-11-29 05:45] LABS: Anion Gap 14.2 (5-19); Blood Urea Nitrogen 19 mg/dL (8-23); Calcium 8.6 mg/dL (8.5-10.5); Carbon Dioxide 27 mmol/L (22-29); Chloride 97 mmol/L (98-107); Creatinine Clr Calc Pharmacy 47.3277; Glucose 94 mg/dL (65-115); Osmolality Calculated 280 mOsm/kg (285-295); Potassium 4.2 mmol/L (3.5-5.1); Sodium 134 mmol/L (136-145)
[2024-11-29] MEDS: metoprolol succinate ER (24 HR) 25 mg Tablet PO (08:05)
--- NOTE | 2024-11-29 09:00 | XACV_ITS ---
Exam Room: [facility] Ht: 180 cm Wt: 83 kg BSA: 2.05 m2 Gender: Male : 1950 Any Known Allergies: No known allergies Exam Priority: Routine Procedure(s): Procedure Description: Diagnostic procedure Procedure Description: PCI procedure Procedure Description: Drug Eluting Coronary Stent Procedure Description: PTCA Procedure Description: Miscellaneous Procedure Description: ACT Procedure Description: Coronary Angiography Diagnostic Cath Status: Elective Diagnostic Findings * Mid Circumflex: significant 70% stenosis, NU: 3 flow. * Left Main has no disease. * Right Coronary Artery has no disease. * Mid Left Anterior Descending: significant 80% stenosis, NU: 3 flow. * Coronary angiography shows right dominance. PCI Status: Elective PCI Indication: Other Interventional Findings * Procedure detail:We engaged left main artery with XB 3.0 guide catheter. Run-through wire was used to cross mid LAD stenosis and was put in distal vessel. We predilated the stenosis with 2.5 x 15 mm semicompliant balloon. This was followed by placement of 2.75 x 18 mm resolute [place] drug-eluting stent. We postdilated the stent with 3.0 x 8 mm NC balloon. At this time final angiogram showed excellent stent expansion and no residual stenosis. We then turned our attention to mid circumflex artery stenosis. Run-through wire was used to cross the stenosis. We predilated the stenosis with 2.5 x 15 mm semicompliant balloon. This was followed by placement of 3.0 x 15 mm resolute Yennifer drug-eluting stent. At this time final angiogram was performed that showed excellent stent expansion and no residual stenosis. Guidewire and guide catheter were removed. Patient left the Product Applications Scientist in a stable condition.. * Mid Left Anterior Descendin% stenosis treated with a AB TREK 2.50X15 RX BALLOON, MIKE R YENNIFER 2.75X18 LILY, and MIKE CASAS EUPHORA RX [id number] BALLOON. 0% residual stenosis, NU: 3 flow. * Mid Circumflex: 70% stenosis treated with a AB TREK 2.50X15 RX BALLOON, and MDJavier R YENNIFER 3.0X15 LILY. 0% residual stenosis, NU: 3 flow. Conclusions 1. Severe mid LAD stenosis s/p PCI with 1 stent. Severe mid left circumflex artery stenosis s/p PCI with 1 stent. 2. Mid Left Anterior Descending was treated with a Balloon, Drug Eluting Stent, and Balloon. 3. Mid Circumflex was treated with a Balloon, and Drug Eluting Stent. Recommendations * Dual antiplatelet therapy with aspirin and plavix. * High intensity statin therapy. * Outpatient cardiology follow up in 2 weeks. Interventional RX Recommendation: PCI w/o planned CABG Diagnostic RX Recommendation: PCI w/o planned CABG Anticoagulation: Heparin Pressures Phase:Rest AO : 139 / 96 ( 119 ) @ 11:14:00 AM 137 / 83 ( 108 ) @ 11:24:00 AM 129 / 83 ( 106 ) @ 11:36:00 AM Clinical Evaluation EBL: 5mL-10mL Procedural Details Procedure Consent Obtained. Admit Source: In Patient. Pre-Procedure Time Out. Identified patient by full name and date of as verbalized by the patient/guarantor. Does the consent match the physician's order: Yes. Accurate & Complete Informed Consent: Yes. Inpatient/Outpatient History & Physical on Chart: Yes. If H&P is completed, is and addenduem needed: No; If yes, is the addendum complete: N/A. Visualize and Verify Site with Patient/Guarantor: N/A. Relevant Radiology Images available: Yes. Pre-op teaching completed and patient verbalized understanding. The risks, benefits, and alternatives of sedation and/or procedure were discussed by physician. The patient agrees to continue. Procedure started. [facility] Clinical Fraility Score: 3: Managing Well. Product Applications Scientist Indications: Worsening Angina. Chest Pain Symptom Assessment: Typical Angina Symptoms. Correct patient, site and procedure confirmed by cath team. Current diagnosis: Chest Pain. PERRLA. Strong, equal hand behavioral health aide bilaterally. Lungs clear x 5 lobes. IV Site on Arrival: 18 gauge in the right hand. IV Fluids: 0.9% NaCl at KVO. 0 mL infused prior to research laboratory manager. Pre Procedural Pulses: right radial was 2+. Oxygen started at 2liters/min via nasal canula. right groin was prepped with chloroprep then draped in the usual sterile fashion. right radial was prepped with chloroprep then draped in the usual sterile fashion. Physician arrived. A 20 gauge IV was started in the left forearm using aseptic technique. Baseline sample Acquired. HR: 59 BPM. Physician scrubbed in. Immediate Pre-Procedure Time Out. Correct Patient: Yes; Correct Procedure: Yes; Correct Site: Yes; Correct Patient Position: Yes; Correct Supplies: Yes; Dried Flammable Prep: Yes; Blood Products Available: N/A;. Lidocaine 1% infiltrated to the right radial. Arterial access obtained. A 5 turkish TIG catheter in over wire. Multiple views taken of left coronary artery. Catheter redirected to the RCA. Multiple views taken of right coronary artery. Catheter removed over the exchange wire. 6 turkish XB 3.5 guide catheter was inserted over the wire. Runthrough guidewire was advanced through the guide catheter to lesion in the mid LAD. A second Runthrough wire inserted. The second wire removed. Inflation number : 1 A AB TREK 2.50X15 RX BALLOON was prepped and advanced across the Mid LAD , then inflated to 10 CHRIST for 0:13 seconds. Balloon out. Inflation Number : 2 A MIKE Williamson YENNIFER 2.75X18 LILY -Lot Number# _[id number] EXP: 03/07/2027 was prepped and advanced across the Mid LAD. The stent was deployed at 12 CHRIST for 0:20 seconds. Stent balloon out over wire. Results checked. Inflation number : 3 A MIKE CASAS EUPHORA RX [id number] BALLOON was prepped and advanced across the Mid LAD , then inflated to 14 CHRIST for 0:16 seconds. Inflation number: 4 The MDJavier CASAS EUPHORA RX [id number] BALLOON was reinflated across the Mid LAD, to 18 CHRIST for 0:16 seconds. Balloon out. Wire redirected to the CX. Inflation number: 1 The AB TREK 2.50X15 RX BALLOON was reinflated across the Mid CX, to 10 CHRIST for 0:09 seconds. Balloon out. Inflation Number : 2 A MIKE Williamson YENNIFER 3.0X15 LILY -Lot Number# _[id number] LOT# 04/28/2027 was prepped and advanced across the Mid CX. The stent was deployed at 12 CHRIST for 0:22 seconds. Stent balloon out over wire. Wire out. Results checked. ACT drawn. Results out of range high seconds. Therapeutic limits - pre-heparin administration 90-150 seconds and monitoring heparin during a vascular procedure >250 seconds. Guide catheter out. Physician scrubbed out. Vital chart was stopped. A TR Band was successful obtaining hemostatsis at the Right Radial artery insertion site. Post Procedure: Pulses reassessed and unchanged. PERRLA. Strong, equal hand behavioral health aide bilaterally. No VTE prophylaxis required. Medication's Wasted: Lidocaine 1% = 18 mL. Medication's Wasted: Nitro = 49.8 mcg. Medication's Wasted: Other = Fentanyl 50 mcg. Total IV fluids: 75 mL. Post-op diagnosis: Stent to LAD and CX. Complications: None. Estimated blood loss: 5mL-10mL. Responsiveness - Normal response to verbal stimuli; alert and oriented, PERRLA. Airway - Unaffected, no intervention required; spontaneous ventilation. Circulation: W/N/L, pulses unchanged. Nausea/Vomiting: No. Procedure completed. Patient transferred by wheelchair to 1st floor. Access Site Site: Right Radial artery Sheath Size: 6 Fr Hemostasis Method: TR Band Hemostasis Success: Successful Procedure Medications Start: 10:10 AM Stop: 10:10 AM Medication: Versed 1 mg and Fentanyl 25 mcg Amount: 1 Route: I.V. Start: 10:00 AM Stop: 10:00 AM Medication: Versed 1 mg and Fentanyl 25 mcg Amount: 1 Route: I.V. Start: 10:11 AM Stop: 10:11 AM Medication: Nitrogylcerin Amount: 200 mcg Route: I.A. Start: 10:12 AM Stop: 10:12 AM Medication: Heparin Amount: 5000 units Route: I.V. Start: 10:20 AM Stop: 10:20 AM Medication: Heparin Amount: 2000 units Route: I.V. Start: 10:41 AM Stop: 10:41 AM Medication: Plavix Amount: 300 mg Route: P.O. I, the attending physician, have reviewed and verified all procedure medications. Yes, all medications given per verbal order History/Risk Factors Hypertension: Yes Dyslipidemia: Yes Peripheral Arterial Disease (PAD): Yes Myocardial Infarction (ND): No Obesity: No Renal Disease: No Tobacco Use: Never Prior Interventions PCI: No CABG: No Valve Surgery: No Report Signatures Finalized by Tmo Ospina MD on 12/12/2024 12:13 PM
--- NOTE | 2024-11-29 09:29 | P.PN_ITS ---
<Statement entered by Tom Ospina M.D - 12/07/24 11:39> Patient was cared for in conjunction with an advanced practice practitioner.? I reviewed the chart and all pertinent data including imaging, telemetry, and laboratory results.? I discussed the patient in detail with the advanced practice practitioner.? Please see their note for complete progress note, testing results and agreed upon plan of care for the patient. Subjective 2 Subjective: He has done well overnight, no chest pain or shortness of breath. Coronary angiogram planned this morning. Vitals/I&O/Wt Last Vital Signs Temp 97.6 F 11/29/24 07:45 Pulse 58 L 11/29/24 07:45 Resp 24 H 11/29/24 07:45 BP 148/82 11/29/24 07:45 Pulse Ox 96 11/29/24 07:45 O2 Del Method Room Air 11/29/24 04:00 11/28/24 11/29/24 11/29/24 22:59 06:59 14:59 Intake Total 890 / 1470 50 / 1470 150 / 150 Output Total 225 / 1225 600 / 1225 250 / 250 Balance 665 / 245 -550 / 245 -100 / -100 Weight last 48 hrs Weight 183 lb 12.8 oz Weight 184 lb 6.4 oz Physical Exam 2 Const: COMMON NORMALS: no acute distress and patient oriented x3 GENERAL APPEARANCE: cooperative and comfortable ORIENTATION/CONSCIOUSNESS: Yes awake, Yes oriented to person, Yes oriented to place and Yes oriented to time Chest: COMMONS NORMALS: normal inspection of the chest and normal palpation of entire chest wall CHEST: Yes Symmetrical chest wall rise Resp: COMMON NORMALS: normal respiratory effort, No retractions and No use of accessory muscles EFFORT & INSPECTION: Yes symmetric chest movement A USCULTATION: rhonchi (scattered) OTHER: productive cough Cardio: COMMON NORMALS: regular rate, regular rhythm, S1 normal heart sound present, S2 normal heart sound present, No gallops present (Cardio), No clicks present (Cardio), No murmurs present (Cardio) and No rub (Cardio) RATE: r egular rate RHYTHM: regular rhythm HEART SOUNDS: S1 normal heart sound present and S2 normal heart sound present PERIPHERAL PULSES: radial pulses present Extremity: COMMON NORMALS: no pedal edema Neuro: COMMON NORMALS: patient oriented x3 and moves all extremities S ENSORIUM/ORIENTATION: Yes oriented to person, Yes oriented to place and Yes oriented to time Data 11/29/24 04:21 11/29/24 04:21 Micro: Microbiology 11/26/24 13:30 Gram Stain - Final Sputum - Expectorated Sputum Sputum Culture - Final A&P Assessment and plan 1. Paroxysmal atrial fibrillation: 2. Cardiomyopathy: 3. Hypertension: 4. Mixed hyperlipidemia: 5. HANS (acute kidney injury): 6. Dehydration: Plan: Stable from a cardiovascular perspective, further plan based on coronary angiogram. Will plan for GDMT after procedure. PDMP PDMP Reviewed: Not Reviewed Attestations 2 Medical Necessity Statement*: ischemic workup Coding Level of Care Code Acute Code for g Fwd Diagnoses Paroxysmal atrial fibrillation I48.0 Cardiomyopathy I42.9 Hypertension I10 Mixed hyperlipidemia E78.2 HANS (acute kidney injury) N17.9 Dehydration E86.0
--- NOTE | 2024-11-29 09:36 | PC.SOCIAL ---
IMM Update Updated pt on IMM. No questions voiced. Provided pt a copy. Initialed,dated, & timed copy in chart.
--- NOTE | 2024-11-29 10:01 | W.PM.OPSUD ---
Surgery/Procedure H&P Update DATE OF PROCEDURE: November 29, 2024 DATE H&P PERFORMED: 11/25/24 H&P UPDATE INFORMATION: I have reviewed H&P completed within last 30 days, I have examined patient prior to procedure and Changes to prior documentation as noted here CHANGES TO PREVIOUS DOCUMENTATION: Because of LV dysfunction and prior CAD history, plan for coronary angiogram PREOP DIAGNOSIS: LV dysfunction PRIMARY INDICATION FOR PROCEDURE: LV dysfunction PLANNED PROCEDURE: Operation Date: 11/29/24 08:30 Proposed Procedures p Cardiac Catheterization(Not Applicable) - Tom Ospina M.D Possible percutaneous coronary intervention PATIENT REASSESSED PRIOR TO SEDATION, WITH NO CHANGE NOTED: Yes PHYSICAL EXAM: alert, oriented x 3, clear to auscultation bilaterally and regular rate & rhythm AIRWAY EVAL/ANESTHESIA PLAN: normal airway, ASA III, Local Anesthesia, Risks, benefits & alternatives of sedation and/or procedure discussed and Patient agrees to continue as planned ADDITIONAL INFORMATION: Moderate sedation
--- NOTE | 2024-11-29 10:50 | PM.PROC ---
Procedure Note: Date of procedure: 11/29/24 Pre-procedure diagnosis: LV dysfunction Post-procedure diagnosis: other (Severe mid LAD stenosis s/p PCI with 1 stent. Severe mid left circumflex artery stenosis s/p PCI with 1 stent) Procedure: Severe mid LAD stenosis s/p PCI with 1 stent. Severe left circumflex artery stenosis s/p PCI 1 stent Performing Provider: Tom Ospina Estimated blood loss (mL): 10 Complications: None Condition: stable Disposition: floor Coding Level of Care Code Acute Code for Phylicia Sutherland
--- NOTE | 2024-11-29 11:03 | PC.NURSE ---
Patient received from cathead operator via wheelchair. Patient is s/p [facility] with PCIx2. Right radial access with TR Band in place. No s/s of bleeding or hematoma formation observed. Pulse palpable with warm extremity. Patient denies pain to site. Instructed patient on site care with restrictions. Patient verbalized complete understanding. Fluids to continue at 75ml/hr for 8 hours, running to left forearm IV.
--- NOTE | 2024-11-29 13:45 | P.PN_ITS ---
Subjective 2 Subjective: Patient was seen this morning, after cardiac catheterization, he status post 2 cardiac stents, no chest pain, no palpitations, no lightheadedness, dizziness, no nausea, no vomiting Vitals/I&O/Wt Last Vital Signs Temp 97.6 F 11/29/24 07:45 Pulse 53 L 11/29/24 12:30 Resp 25 H 11/29/24 12:30 BP 157/80 11/29/24 12:00 Pulse Ox 95 11/29/24 12:15 O2 Del Method Room Air 11/29/24 04:00 11/28/24 11/29/24 11/29/24 22:59 06:59 14:59 Intake Total 890 / 1420 50 / 1470 608.333 / 608.333 Output Total 225 / 625 600 / 1225 850 / 850 Balance 665 / 795 -550 / 245 -241.667 / -241.667 Weight last 48 hrs Weight 83.37 kg Weight 83.642 kg Physical Exam 2 Const: COMMON NORMALS: no acute distress and patient oriented x3 Resp: COMMON NORMALS: normal respiratory effort, No retractions, No use of accessory muscles and clear to auscultation bilaterally AUSCULTATION: clear to auscultation bilaterally Cardio: COMMON NORMALS: regular rate, regular rhythm, S1 normal heart sound present and S2 normal heart sound present RATE: regular rate RHYTHM: r egular rhythm HEART SOUNDS: S1 normal heart sound present and S2 normal heart sound present GI: COMMON NORMALS: Normal to inspection, nondistended, normoactive bowel sounds present and non-tender Extremity: COMMON NORMALS: no pedal edema Neuro: COMMON NORMALS: patient oriented x3 Psych: COMMON NORMALS: mental status grossly normal Data 11/29/24 04:21 11/29/24 04:21 Micro: Microbiology 11/26/24 13:30 Gram Stain - Final Sputum - Expectorated Sputum Sputum Culture - Final A&P Assessment and plan 1. Paroxysmal atrial fibrillation: - Continue amiodarone 400mg bid - Continue Metoprolol 25 mg daily - Not on anticoagulant therapy given history of subdural hematoma -Follow-up with cardiology as outpatient for consideration of Watchman Subdural hematoma -History of subdural hematoma 2019 after a fall associated with a grand mal seizure -Has not had any issues with bleeding since then, is on Plavix without any issues 2. Coronary artery disease: ? History of LAD stenting -Status post coronary angiography 11/29/2024, severe LAD stenosis status post PCI with 1 stent, left circumflex artery stenosis status post PCI with 1 stent - Continue Plavix, metoprolol and atorvastatin 3. Hypertension: 4. Cardiomyopathy: CONCLUSIONS 1. Moderately reduced left ventricular systolic function, EF 40%. 2. Moderately dilated right ventricle with moderately redued right ventricular contractility 3. Mild mitral regurgitation 4. Moderate tricuspid valve regurgitation. History of coronary angiogram in 2019 A high-grade stenosis in the proximal left anterior descending artery involving the ostium. Moderate stenosis in the mid circumflex artery. Moderately severe stenosis in the ostium of the first diagonal branch of the left anterior descending artery. Mild diffuse disease in the other vessels. Normal LV ejection fraction of 60%. LVEDP of 4 mmHg. Proximal Left Anterior Descending Coronary Artery was treated with two Balloon and Drug Eluting Stent. - Cardiology consulted - 2 stents placed today 5. Abnormal chest CT: 6. Multifocal pneumonia: CT of the chest Lungs: Cluster of for soft tissue nodular opacities are identified in the inferior left upper lobe, largest measuring 5.1 mm in diameter. A 2nd cluster of somewhat ill-defined nodular opacities are seen in the posterolateral left lower lobe (5/50), the largest measuring 5.4 mm in diameter. Some additional ill-defined nodular opacities are seen in the superior segment of the left lower lobe (5/27, 19). A minimal area of focal infiltrate is also suggested in the inferior right upper lobe (5/32).) There is focal consolidation seen in the lateral sulcus of the right lung. The punctate granulomatous calcification is seen in the right lower lobe, unchanged from the prior study, located in a subpleural location (4/50). Stable focal emphysematous changes are identified in the right middle lobe. The central airway is normal. Pleural spaces: No pneumothorax. Small bilateral pleural effusions are present, decreased in size from prior study. Heart: The heart size is enlarged. There is a small pericardial effusion. There are coronary artery atherosclerotic changes present. A proximal LAD stent is also suggested. Lymph nodes: Mediastinal lymphadenopathy is again seen within the aortopulmonary window index node today having a short axis of 14.4 mm compared with 13.6 mm on the prior study. Vasculature: No aortic aneurysm or dissection. - Procal 0.18, CRP 42.2, sed rate 15 - CT angiogram of the chest 08/13/2024 Pulmonary arteries: Normal. No pulmonary emboli. There is slightly suboptimal visualization of the lower lobe pulmonary arteries, right worse than left, due to decreased/delayed vascular contrast opacification. Aorta: Unremarkable. No aortic aneurysm. No aortic dissection. Lungs: Right lower lobe atelectasis/consolidation inferiorly. Cystic lesion with bronchiectasis in the right middle lobe measuring 4 x 4.4 cm. Pleural spaces: Ousxe-eg-vcrvgrin bilateral pleural effusions, wyhap-dpqygat-tdrd-left. Heart: Unremarkable. No cardiomegaly. No pericardial effusion. Lymph nodes: AP window node measures 1.2 cm in short axis other shotty lymph nodes measure less than 1 cm in the prevascular and AP window. Right hilar node measures 1.3 cm.. - Patient had a ER visit 08/13, was discharged on antibiotics, diuretics -Cardiac echocardiogram does not show any valvular vegetations -Differential is infection versus septic emboli versus malignancy Plan - Continue antibiotics for now - Follow cultures -Fungal studies ordered -No TB risk factors, no history of TB exposure, no hemoptysis, nonetheless ordered TB QuantiFERON gold, AFB smear -Ordered PCP PCR - Will discuss case with pulmonary, for bronchoscopy, bronchoscopy scheduled as outpatient 12/05/2024 HANS on CKD, creatinine 1.4, monitor Plan: History of grand mal seizure, continue Keppra PDMP PDMP Reviewed: Not Reviewed Attestations 2 Medical Necessity Statement*: Patient requires hospitalization for NSTEMI, CAD s/p cardiac stenting Diagnoses Paroxysmal atrial fibrillation I48.0 Coronary artery disease I25.10 Hypertension I10 Cardiomyopathy I42.[address] R93.89 Multifocal pneumonia J18.8
--- NOTE | 2024-11-29 14:08 | PC.NURSE ---
Informed Dr Ospina of small hematoma formation under TR band as air was removed. Replaced 6ml of air. Reinforced instruction on site care. Patient demonstrated understanding.
--- NOTE | 2024-11-29 16:45 | PC.NURSE ---
TR Band removed at this time. Bruising observed. Hematoma resolved. Covered site with 2x2 and coban. Instructed patient again on site care with restrictions. Patient verbalized understanding.
[2024-11-29] MEDS: MELATONIN 3 MG TABLET 6 MG PO (20:48)
[2024-11-30] VITALS: BP 160/94; PULSE 55; RESP 18; TEMP 36.2; O2SAT 96
[2024-11-30 04:00] VITALS: BP 139/77; PULSE 55; RESP 16; TEMP 36.5; O2SAT 95
[2024-11-30 04:30] LABS: Hematocrit 39.5 % (37-53); Hemoglobin 13.00 g/dL (11.27-16.99); Mean Corpuscular HGB Conc 32.9 g/dL (30-55); Mean Corpuscular Hemoglobin 29.1 pg (27-33); Mean Corpuscular Volume 88.4 fl (82-101); Nucleated Red Blood Cells % 0 %; Platelet Count 154 10^3/cmm (157-399); Red Blood Count 4.47 10^6/uL (3.85-5.65); White Blood Count 6.83 10^3/uL (3.29-11.43)
[2024-11-30 05:04] LABS: NT Pro B Type Natriuretic Pept 5835 pg/mL (0-450); Procalcitonin 0.09 ng/mL (0-0.5)
[2024-11-30 05:16] LABS: Anion Gap 15.0 (5-19); Blood Urea Nitrogen 17 mg/dL (8-23); Calcium 8.1 mg/dL (8.5-10.5); Carbon Dioxide 25 mmol/L (22-29); Chloride 99 mmol/L (98-107); Creatinine Clr Calc Pharmacy 50.6381; Glucose 83 mg/dL (65-115); Osmolality Calculated 281 mOsm/kg (285-295); Potassium 4.0 mmol/L (3.5-5.1); Sodium 135 mmol/L (136-145)
[2024-11-30 05:20] LABS: Slide Review Slide Review Perform
[2024-11-30] MEDS: piperacillin-tazobactam 3.375 GM in sodium chloride 0.9% (plus) 50 ML IV (05:57)
[2024-11-30 06:00] VITALS: PULSE 54; BMI 26.1
[2024-11-30 07:48] VITALS: BP 156/81; PULSE 58; RESP 28; TEMP 36.2; O2SAT 93
[2024-11-30] MEDS: metoprolol succinate ER (24 HR) 25 mg Tablet PO (08:59)
--- NOTE | 2024-11-30 10:14 | P.PN_ITS ---
<Statement entered by Tom Ospina M.D - 12/07/24 11:44> Patient was cared for in conjunction with an advanced practice practitioner.? I reviewed the chart and all pertinent data including imaging, telemetry, and laboratory results.? I discussed the patient in detail with the advanced practice practitioner.? Please see their note for complete progress note, testing results and agreed upon plan of care for the patient. Subjective 2 Subjective: He has done well overnight, no chest pain or shortness of breath. Right radial cath site has very small hematoma, no oozing or bleeding overnight. Vitals/I&O/Wt Last Vital Signs Temp 97.2 F L 11/30/24 07:48 Pulse 58 L 11/30/24 07:48 Resp 28 H 11/30/24 07:48 BP 156/81 11/30/24 07:48 Pulse Ox 93 11/30/24 07:48 O2 Del Method Room Air 11/30/24 07:48 11/29/24 11/30/24 11/30/24 22:59 06:59 14:59 Intake Total 1220 / 2358.333 530 / 2358.333 240 / 240 Output Total 125 / 1775 800 / 1775 400 / 400 Balance 1095 / 583.333 -270 / 583.333 -160 / -160 Weight last 48 hrs Weight 187 lb 3 oz Weight 183 lb 12.8 oz Physical Exam 2 Const: COMMON NORMALS: no acute distress and patient oriented x3 GENERAL APPEARANCE: cooperative ORIENTATION/CONSCIOUSNESS: Yes awake, Yes oriented to person, Yes oriented to place and Yes oriented to time Chest: COMMONS NORMALS: normal inspection of the chest and normal palpation of entire chest wall CHEST: Yes Symmetrical chest wall rise Resp: COMMON NORMALS: normal respiratory effort, No retractions and No use of accessory muscles AUSCULTATION: rhonchi (scattered, clears with coughing) Cardio: COMMON NORMALS: regular rate, regular rhythm, S1 normal heart sound present, S2 normal heart sound present, No gallops present (Cardio), No clicks present (Cardio), No murmurs present (Cardio) and No rub (Cardio) RATE: r egular rate RHYTHM: regular rhythm HEART SOUNDS: S1 normal heart sound present and S2 normal heart sound present PERIPHERAL PULSES: radial pulses present positive right 2+ and femoral pulses present positive right 2+ Neuro: COMMON NORMALS: patient oriented x3 and moves all extremities S ENSORIUM/ORIENTATION: Yes oriented to person, Yes oriented to place and Yes oriented to time Skin: WOUNDS: Yes surgical site (no hematoma palpable) Details: no odor Data 11/30/24 03:37 11/30/24 03:37 A&P Assessment and plan 1. Paroxysmal atrial fibrillation: 2. Hypertension: 3. Coronary artery disease: 4. Mixed hyperlipidemia: 5. HANS (acute kidney injury): Plan: He is s/p LILY x1 to LAD and left circumflex. No recurrence of chest pain. He can discharge home today on aspirin and Plavix. Follow up in cardiology clinic in [address] Ospina. We will refer him for Watchman device as outpatient. PDMP PDMP Reviewed: Not Reviewed Attestations 2 Medical Necessity Statement*: probable discharge home Coding Level of Care Code Acute Code for g Fwd Diagnoses Paroxysmal atrial fibrillation I48.0 Hypertension I10 Coronary artery disease I25.10 Mixed hyperlipidemia E78.2 HANS (acute kidney injury) N17.9
--- NOTE | 2024-11-30 11:14 | P.DS_ITS ---
Discharge Providers Date of Admission: 11/25/24 01:48 Date of Discharge: November 30, 2024 Attending Provider at Admission: Nieves Aldridge MD Attending Provider at Discharge: Iraj Watkins MD Primary Care Provider: Matias Echevarria MD Diagnoses at Discharge Discharge Diagnosis 1. Paroxysmal atrial fibrillation: 2. Hypertension: 3. Coronary artery disease: 4. Mixed hyperlipidemia: 5. HANS (acute kidney injury): Reason for Visit Reason for Visit: cough feels choking violently causes abd pain Hospital Course Hospital Course This is a 74-year-old male with past medical history of hypertension, hyperlipidemia, CAD, peripheral arterial disease, atrial fibrillation who presents [facility] due to cough, atrial fibrillation For paroxysmal atrial fibrillation, he was managed on initial drip, transition to p.o. amiodarone, metoprolol, discharged with close follow-up with cardiology as outpatient for consideration of watchman. Patient is not on anticoagulant therapy due to his history of subdural hematoma. Forests history of CAD, chest pain, NSTEMI, cardiology consulted, underwent coronary angiography with stenting to the left circumflex x 1, LAD x1. Will be discharged on aspirin, Plavix, metoprolol, statin with close follow-up with cardiology as outpatient For ischemic cardiomyopathy EF of 40%, patient had 2 stents placed, follow-up with cardiology as outpatient Was found to have multifocal pneumonia during his hospitalization, managed with IV antibiotics, will have patient follow-up with pulmonary as outpatient for consideration of bronchoscopy, discharged on p.o. antibiotics Discussed with patient his lymphadenopathy, he has multifocal opacities in his lungs, sputum cultures within normal limits, blood culture within normal limits, QuantiFERON gold TB negative, cryptococcal serology so far pending, follow-up with pulmonary as outpatient, for consideration of bronchoscopy, but favored to be pneumonia, received Antibiotics as inpatient, discharged on p.o. antibiotics Physical Exam Const: COMMON NORMALS: no acute distress and patient oriented x3 Resp: COMMON NORMALS: normal respiratory effort, No retractions, No use of accessory muscles and clear to auscultation bilaterally AUSCULTATION: clear to auscultation bilaterally Cardio: COMMON NORMALS: regular rate, regular rhythm, S1 normal heart sound present and S2 normal heart sound present RATE: regular rate RHYTHM: regular rhythm HEART SOUNDS: S1 normal heart sound present and S2 normal heart sound present GI: COMMON NORMALS: Normal to inspection, nondistended, normoactive bowel sounds present and non-tender Extremity: COMMON NORMALS: no pedal edema Neuro: COMMON NORMALS: patient oriented x3 Psych: COMMON NORMALS: mental status grossly normal Discharge Data Studies Completed and Pending Completed Studies During Hospitalization Category Date Time Status CT abdomen pelvis w con* [id number] Stat Cat Scan 11/25/24 00:[address] chest wo con [id number] Stat Cat Scan 11/26/24 09:04 Completed XR chest 1V portable [id number] Stat Exams 11/24/24 22:11 Completed CV. echo complete* [id number] Routine Ultrasound 11/25/24 11:24 Completed Pending at discharge Category Date Time Status FURNACE COMBU[employer]ION TESTER request for service Routine Exams 11/29/24 09:00 Taken 1-3 Beta D Glucan [Fungitell Glucan Assay (Blood)] Lab 11/27/24 16:19 Received Routine AFB [Mycobacteria, Culture w/Fluor] Stat Lab 11/28/24 16:31 Uncollected Aspergillus AG,EIA,Serum Stat Lab 11/27/24 16:19 Received BLASTOMYCES AG [MVista Blastomyces AG Quant] Stat Lab 11/27/24 16:19 Received Blood Culture Stat Lab 11/26/24 13:28 Results Coccidioides AB Immunodiffusio Routine Lab 11/27/24 16:19 Received Cryptococcal Antigen w/ Reflex Stat Lab 11/27/24 16:19 Received Histoplasma Quantitative AG Routine Lab 11/27/24 16:19 Received Pneumocystis Quant PCR [Pneumocystis jirovecii, QT PCR] Lab 11/28/24 16:31 Uncollected Routine Gnlxcwzsdvv-YE-Ctjo Plus Routine Lab 11/28/24 16:31 Received Sputum Culture and Gram Stain Stat Lab 11/28/24 16:35 Uncollected Radiology Impressions Chest X-Ray 11/24/24 22:11 IMPRESSION: No acute findings. Abdomen/Pelvis CT 11/25/24 00:04 IMPRESSION: 1. Focally prominent loop of small bowel in the pelvis just to the right of the bladder, unknown clinical significance, can not totally exclude focal enteritis. 2. Large inguinal hernia with fluid-filled bowel, no definitive evidence of small bowel obstruction, large associated hydrocele. 3. Trace pelvic free fluid, unknown clinical significance, possibly related to prior surgery. Chest CT 11/26/24 09:04 IMPRESSION: 1. Interval decrease in bilateral pleural effusions. 2. Multiple new clusters of ill-defined soft tissue nodules in both lungs as detailed above. Differential considerations include multifocal pneumonia, septic emboli, or new aggressive metastatic disease. 3. Focal airspace consolidation, lateral right lung sulcus consistent with pneumonia. 4. New minimal ascites. 5. Poorly definition gallbladder wall with pericholecystic fluid. The fluid may be a manifestation of the ascites or indicate acalculous cholecystitis. Clinical correlation is suggested and correlation with ultrasound. 6. Slight increase in mediastinal lymphadenopathy. Laboratory Results WBC 6.83 10^3/uL (3.29-11.43) 11/30/24 03:37 RBC 4.47 10^6/uL (3.85-5.65) 11/30/24 03:37 Hgb 13.00 g/dL (11.27-16.99) 11/30/24 03:37 Hct 39.5 % (37-53) 11/30/24 03:37 MCV 88.4 fl (82-101) 11/30/24 03:37 MCH 29.1 pg (27-33) 11/30/24 03:37 MCHC 32.9 g/dL (30-55) 11/30/24 03:37 RDW 20.5 % (12.1-15.1) H 11/30/24 03:37 Plt Count 154 10^3/cmm (157-399) L 11/30/24 03:37 MPV 10.5 fL (7.4-10.4) H 11/30/24 03:37 Neut % (Auto) 71.9 % 11/30/24 03:37 Lymph % (Auto) 13.2 % 11/30/24 03:37 [place] % (Auto) 5.9 % 11/30/24 03:37 Eos % (Auto) 8.1 % 11/30/24 03:37 Baso % (Auto) 0.6 % 11/30/24 03:37 Neut # (Auto) 4.92 10^3/uL (1.8-7.7) 11/30/24 03:37 Lymph # (Auto) 0.9 10^3/uL (0.8-4.8) 11/30/24 03:37 [place] # (Auto) 0.4 10^3/uL (0.2-0.9) 11/30/24 03:37 Eos # (Auto) 0.6 10^3/uL (0.0-0.8) 11/30/24 03:37 Baso # (Auto) 0.0 10^3/uL (0.0-0.1) 11/30/24 03:37 Nucleated RBC % (auto) 0 % 11/30/24 03:37 Total Counted 100 (0-100) 11/27/24 04:23 Atypical Lymphs % 3.0 % (0-5) 11/27/24 04:23 Absolute Neutrophils 5.3 10^3/cmm (1.4-6.5) 11/27/24 04:23 Segmented Neutrophils 72 % 11/27/24 04:23 Band Neutrophils 8.0 % 11/27/24 04:23 Absolute Lymphocytes 0.9 10^3/cmm (1.2-3.4) L 11/27/24 04:23 Lymphocytes (Manual) 10 % 11/27/24 04:23 Monocytes (Manual) 5.0 % 11/27/24 04:23 Absolute Monocytes 0.3 10^3/cmm (0.1-0.6) 11/27/24 04:23 Eosinophils (Manual) 2 % 11/27/24 04:23 Absolute Eosinophils 0.1 10^3/cmm (0.0-0.7) 11/27/24 04:23 Basophils (Manual) 0.0 % 11/27/24 04:23 Absolute Basophils 0.0 10^3/cmm (0.0-0.2) 11/27/24 04:23 Nucleated RBCs # 0.0 /100WBC 11/30/24 03:37 Smudge Cells Trace 11/27/24 04:23 Platelet Estimate Decreased (Normal) 11/27/24 04:23 Poikilocytosis 1+ H 11/27/24 04:23 Mark Cells 1+ H 11/27/24 04:23 Acanthocytes (Spur) Trace 11/27/24 04:23 ESR 15 mm/hr (0-10) H 11/27/24 04:23 Sodium 135 mmol/L (136-145) L 11/30/24 03:37 Potassium 4.0 mmol/L (3.5-5.1) 11/30/24 03:37 Chloride 99 mmol/L (98-107) 11/30/24 03:37 Carbon Dioxide 25 mmol/L (22-29) 11/30/24 03:37 Anion Gap 15.0 (5-19) 11/30/24 03:37 BUN 17 mg/dL (8-23) 11/30/24 03:37 Creatinine 1.4 mg/dL (0.7-1.2) H 11/30/24 03:37 GFR Calculation Not Reportable 11/30/24 03:37 Glucose 83 mg/dL (65-115) 11/30/24 03:37 Calculated Osmolality 281 mOsm/kg (285-295) L 11/30/24 03:37 Lactic Acid 1.7 mmol/L (0.5-2.2) 11/24/24 23:18 Lactate 2.2 mmol/L (0.5-2.2) 11/25/24 22:33 Calcium 8.1 mg/dL (8.5-10.5) L 11/30/24 03:37 Phosphorus 3.7 mg/dL (2.5-4.5) 11/26/24 02:50 Magnesium 1.8 mg/dL (1.7-2.3) 11/27/24 04:23 Total Bilirubin 1.6 mg/dL (0.15-1.2) H 11/27/24 04:23 Direct Bilirubin 1.60 mg/dL (0.00-0.30) H 11/24/24 23:18 AST 45 U/L (0-40) H 11/27/24 04:23 ALT 29 U/L (0-41) 11/27/24 04:23 Alkaline Phosphatase 58 U/L (40-130) 11/27/24 04:23 Lactate Dehydrogenase 248 U/L (135-225) H 11/27/24 04:23 Troponin T Baseline 34 ng/L (0-15) H 11/24/24 23:18 Troponin T 120 Minute 29.33 ng/L (0-15) H 11/25/24 01:22 Delta Troponin T -4.67 ABS# (0-10) L 11/25/24 01:22 Troponin T Hi Sens 6Hr 30.58 ng/L (0-15) H 11/25/24 04:37 Troponin T Hi Sens 6Hr Delta -3.42 ng/L (0-12) L 11/25/24 04:37 C-Reactive Protein 18.1 mg/L (0.0-4.9) H 11/30/24 03:37 NT-Pro-B Natriuret Pep 5835 pg/mL (0-450) H 11/30/24 03:37 Total Protein 6.3 g/dL (6.6-8.7) L 11/27/24 04:23 Albumin 3.1 g/dL (3.5-5.2) L 11/27/24 04:23 Globulin 3.2 g/dL (1.3-4.6) 11/27/24 04:23 Procalcitonin 0.09 ng/mL (0-0.5) 11/30/24 03:37 TSH 5.03 uIU/mL (0.27-4.20) H 11/24/24 23:18 Urine Color Yellow (Yellow) 11/25/24 01:20 Urine Appearance Clear (CLEAR) 11/25/24 01:20 Urine pH 5.0 (5-7) 11/25/24 01:20 Ur Specific [place] 1.021 (1.005-1.030) 11/25/24 01:20 Urine Protein 1+ (Negative) A 11/25/24 01:20 Urine Glucose (UA) Negative (Normal) 11/25/24 01:20 Urine Ketones Negative (Negative) 11/25/24 01:20 Urine Blood 1+ (Negative) A 11/25/24 01:20 Urine Nitrate Negative (Negative) 11/25/24 01:20 Urine Bilirubin Negative (Negative) 11/25/24 01:20 Urine Urobilinogen 1.0 mg/dL (Negative) 11/25/24 01:20 Ur Leukocyte Esterase Negative (Negative) 11/25/24 01:20 Urine RBC 0-2 /hpf (0-2) 11/25/24 01:20 Urine WBC 0-5 /hpf (0-5) 11/25/24 01:20 Ur Squamous Epith Cells 0-5 /hpf (0-5) 11/25/24 01:20 Amorphous Sediment Not Reportable 11/25/24 01:20 Urine Bacteria None seen /hpf (NONE) 11/25/24 01:20 Hyaline Casts 10.32 /lpf 11/25/24 01:20 Coarse Granular Casts 0-4 /lpf H 11/25/24 01:20 Nasal MRSA (PCR) Not detected (Negative) 11/27/24 16:15 Vitals Last Vital Signs Temp 97.2 F L 11/30/24 07:48 Pulse 58 L 11/30/24 07:48 Resp 28 H 11/30/24 07:48 BP 156/81 11/30/24 07:48 Pulse Ox 93 11/30/24 07:48 O2 Del Method Room Air 11/30/24 07:48 Discharge Plan Discharge Patient Disposition: Home Condition: Serious Prescriptions: New amiodarone [Pacerone] 200 mg Tablet 400 mg PO BID 30 Days Qty: 120 0RF Rx Instructions: 2 tab twice daily for 3 days, 1 tab twice daily for 3 days, then 1 tab daily aspirin 81 mg Tablet,Delayed Release (Dr/Ec) 81 mg PO DAILY 30 Days Qty: 30 0RF metoprolol succinate 25 mg Tablet Extended Release 24 Hr 25 mg PO DAILY 30 Days Qty: 30 0RF Continued levetiracetam 1,000 mg tablet 1,000 mg PO BID Qty: 60 6RF furosemide [Lasix] 40 mg tablet 40 mg PO QAM Qty: 30 0RF atorvastatin 40 mg tablet 40 mg PO BEDTIME 30 Days Qty: 30 3RF clopidogrel 75 mg tablet 75 mg PO DAILY 30 Days Qty: 30 3RF Discontinued metoprolol tartrate 25 mg tablet See Rx Instructions PO BID Qty: 90 3RF Rx Instructions: 1/2 tab orally twice a day; Steno Typist OK for DC: Cardiology Discharge Order = DC NOW: Discharge Order (Routine); Ordered 11/30/24 Ordered By: Iraj Watkins Referrals: Jozef Dove MD [Physician, Interventional Pulmonology] - 12/05/24 2:00 pm Farhan Gupta MD [Physician, Cardiology] - 12/25/24 9:00 am Matias Echevarria MD [Primary Care Provider, Family Practice] - 12/05/24 9:00 am Discharge Diet: Advance as tolerated Discharge Activity: Resume usual activity Patient Instructions: Dehydration - Adult, Metoprolol (By mouth) (Lopressor, Toprol XL), Aspirin (By mouth), Amiodarone (By mouth) (Cordarone, Pacerone), Levofloxacin (By mouth) (Levaquin, Levaquin Leva-luciano), A-fib (Atrial Fibrillation) (DC), Acute Kidney Injury (DC), Chronic Hypertension (DC), Community Acquired Pneumonia (DC), Heart Catheterization (DC), Opioid Safety, Post Angiogram Home Care Instructions, Pneumonia Stoplight, Patient Portal & Susie Instructions Activity Restrictions/Additional Instructions: - Please continue aspirin, Plavix as prescribed - If you have chest pain go to the emergency room - If you have headache or blurry vision or nausea or vomiting go to the emergency room - If you have significant fall, trauma, bloody or black stools go to emergency room - Please take antibiotics as prescribed for pneumonia - Please follow-up with cardiology - Please follow-up with pulmonary Discharge Attestations Time Spent in Discharge Care*: greater than 30 min Quality Metrics Clinical Quality Measures [ No reported AMI, CVA or VTE this stay] Coding Level of Care Code 85164 Total time (in minutes) for Discharge: 45 Diagnoses Paroxysmal atrial fibrillation I48.0 Hypertension I10 Coronary artery disease I25.10 Mixed hyperlipidemia E78.2 HANS (acute kidney injury) N17.9
[2024-11-30 11:42] VITALS: BP 156/81; PULSE 58; RESP 18; O2SAT 93
[2024-11-30 11:50] VITALS: BP 146/84; PULSE 54; RESP 21; TEMP 35.9; O2SAT 96
--- NOTE | 2024-11-30 11:58 | PC.NURSE ---
awaiting meds to beds prescription delivery.
--- NOTE | 2024-11-30 12:32 | PC.NURSE ---
Discharge instructions given and explained.pt verb understanding of instructions.awaiting meds to beds discharge prescriptions
--- NOTE | 2024-11-30 13:05 | PC.NURSE ---
meds to beds arrived.discharged via w/c to exit at this time.friend to drive pt home
[2024-11-30 20:28] LABS: Fungitell 1-3-B Glucan Assay <31 pg/mL (<60); Interpretation Negative (Negative)
[2024-12-02 16:59] LABS: Cryptococcal Source SERUM
[2024-12-03 19:28] LABS: Aspergillus AG,EIA,Serum NOT DETECTED; Aspergillus Galactomannan Inde <0.50
[2024-12-04 17:04] LABS: Histoplasma Antigen (Quant) None Detected; Histoplasma Antigen Interpreta NEGATIVE; Histoplasma Antigen Specimen PLASMA
[2024-12-04 17:15] LABS: Blastomyces Antigen Interpret NEGATIVE; Blastomyces Antigen Result None Detected
[2024-12-05 20:50] LABS: Coccidioides IgG Antibody NEGATIVE; Coccidioides IgM Antibody NEGATIVE
== END 2024-11-30 13:05 | disposition home or self-care (01) | DRG 321 ==
LOC: ER 23:49 → ICU 11-25 02:16 → CSU 11-26 14:20
PROVIDERS: Internal Medicine; Admitting Provider Internal Medicine; Emergency Provider Emergency Medicine; PCP Family Medicine; Visit Provider Family Medicine
PROC: 027135Z Dilation of Coronary Artery, Two Arteries with Two Drug-eluting Intraluminal Devices, Percutaneous Approach (ICD-10-PCS; principal; 2024-11-29 08:30)
PROC: 027135Z Dilation of Coronary Artery, Two Arteries with Two Drug-eluting Intraluminal Devices, Percutaneous Approach (ICD-10-PCS; 2024-11-29 08:30)
DX: I21.4 Non-ST elevation (NSTEMI) myocardial infarction (principal); J18.9 Pneumonia, unspecified organism; I48.19 Other persistent atrial fibrillation; I13.0 Hypertensive heart and chronic kidney disease with heart failure and stage 1 through stage 4 chronic kidney disease, or unspecified chronic kidney disease; I50.20 Unspecified systolic (congestive) heart failure; N17.9 Acute kidney failure, unspecified; I47.10 Supraventricular tachycardia, unspecified; N18.9 Chronic kidney disease, unspecified; I25.10 Atherosclerotic heart disease of native coronary artery without angina pectoris; E78.2 Mixed hyperlipidemia; I73.9 Peripheral vascular disease, unspecified; I25.5 Ischemic cardiomyopathy; R59.0 Localized enlarged lymph nodes; G40.909 Epilepsy, unspecified, not intractable, without status epilepticus; I08.1 Rheumatic disorders of both mitral and tricuspid valves; E86.0 Dehydration; Z79.82 Long term (current) use of aspirin; Z79.02 Long term (current) use of antithrombotics/antiplatelets; Z87.01 Personal history of pneumonia (recurrent)
CPT/HCPCS: 36415; 71045; 71250; 74177; 80048; 80053; 80076; 81001; 83605; 83615; 83735; 83880; 84100; 84145; 84443; 84484; 85007; 85025; 85347; 85651; 86140; 86403; 86480; 86635; 87040; 87070; 87205; 87305; 87385; 87449; 92523; 92610; 93005; 93306; 93454; 96365; 96366; 96367; 96372; 99152; 99153; 99285; A4222; C1725; C1769; C1874; C1887; C1894; C9600; C9601; J0283; J1160; J1644; J2250; J2543; J3010; J3490; J7030; J9999; Q0163; Q9967